=== PATIENT | male | born 1940 | race Caucasian/White ===

== ENCOUNTER 2020-08-18 11:01 | Inpatient (IN) | payer MEDICARE, BC, SELFPAY ==
[2020-08-18] VITALS (42 sets, daily range): BP systolic 151–199; BP diastolic 59–97; PULSE 67–111; RESP 17–28; TEMP 37.3–39.3; O2SAT 92–99; BMI 19.8
--- NOTE | ~2020-08-18 | XR_ITS ---
XR abdomen NG/feed tube insert INDICATION: Evaluate NG tube position. TECHNIQUE: Limited KUB perform for evaluating NG tube . COMPARISON: 08/21/2020 FINDINGS: NG tube tip in the stomach. Visualized bowel gas pattern is unremarkable. IMPRESSION: 1: NG tube tip in the stomach. Reviewed, dictated and finalized at location A. M AND GAS TURBINES ASSEMBLER
--- NOTE | ~2020-08-18 | XR_ITS ---
XR chest 1V portable DATE: 08/20/2020 05:36 INDICATION: Fever TECHNIQUE: Portable AP chest on August 20, 2020 at 0525 hours COMPARISON: August 18, 2020 AP chest FINDINGS: Heart size appears within normal limits considering magnification associated with AP projec tion. There are patchy infiltrates involving primarily the mid and lower lung zones, suggesting bilateral p neumonia. Pulmonary edema is an additional consideration. No pleural effusion or pneumothorax is evid ent. Diffuse osteopenia. Degenerative spurring of the thoracic spine. IMPRESSION: Interval mild patchy bilateral pulmonary infiltrates since August 18, 2020 Reviewed, dictated and finalized at location A. NKLING SYSTEM INSTALLER
--- NOTE | ~2020-08-18 | XR_ITS ---
EXAMINATION: XR chest PICC line DATE: 08/23/2020 12:02 INDICATION: Central line placement. TECHNIQUE: A single frontal view of the chest was obtained. COMPARISON: Chest single view 08/20/2020 FINDINGS: The left lung base is excluded. There are airspace opacities in the perihilar regions. No p leural effusion or pneumothorax. The heart size is normal. A right upper extremity peripherally inser central venous catheter (PICC) is seen with tip in the superior vena cava. The nasogastric tube t ip is beyond the inferior margin of the radiograph, but at least to the stomach. IMPRESSION: 1. PICC tip in superior vena cava. 2. Worsened airspace opacities in the perihilar regions, consistent with pulmonary edema versus pneum onia. Reviewed, dictated and finalized at location A. SCALER IMPRESSION: 1. PICC tip in superior vena cava. 2. Worsened airspace opacities in the perihilar regions, consistent with pulmon phillip edema versus pneumonia.
--- NOTE | ~2020-08-18 | MR_ITS ---
EXAMINATION: MR brain/brain stem wo/w con DATE: 08/20/2020 12:40 INDICATION: Altered mental status. Fever. TECHNIQUE: Magnetic resonance imaging (MRI) of the brain and brainstem was performed without and with 13 mL MultiHance intravenous contrast. Sequences included sagittal and axial T1-weighted FSE, axial diffusion-weighted FS EPI, axial T2*-weighted GRE, axial T2-weighted FLAIR Propeller, and axial T2-we ighted Propeller. Postcontrast sequences included axial and coronal T1-weighted FSE. Apparent diffusi on coefficient (ADC) maps were created. COMPARISON: Head CT 08/18/2020 FINDINGS: There is a small area of cystic encephalomalacia in the right frontal lobe centrum semioval e. There is chronic encephalomalacia in anteroinferior right frontal lobe. There are scattered areas of nonspecific increased T2-weighted signal intensity in the cerebral white matter. There is an old i nfarct in right cerebellum. There is no intracranial hemorrhage, acute infarction, or abnormal intrac ranial mass lesion. The ventricles are normal in size. There are likely changes of ocular lens replac ement surgeries. There is mild mucosal thickening in the paranasal sinuses. The mastoid air cells are normal. IMPRESSION: 1. 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 Chronic encephalomalacia in anteroinf erior right frontal lobe. 2. Mild nonspecific cerebral white matter disease, which likely represents chronic small vessel ische yamila disease. Reviewed, dictated and finalized at location A. ERTER SUPERVISOR IMPRESSION: 1. 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 Chronic encepha lomalacia in anteroinferior right frontal lobe. 2. Mild nonspecific cerebral white matter disease, which likely represents car wiper og small vessel ischemic disease.
--- NOTE | ~2020-08-18 | CT_ITS ---
EXAMINATION: CT brain wo con DATE: 08/18/2020 11:44 INDICATION: Altered mental status. TECHNIQUE: Computed tomography (CT) of the head was performed without intravenous contrast. The mA wa s adjusted according to patient size. Iterative reconstruction technique was employed. The dose-lengt h product was 605.33 mGy-cm. COMPARISON: None FINDINGS: There is a small old infarct in right cerebellum. There are scattered areas of low attenuat ion in the cerebral white matter. There is a small area of cystic encephalomalacia in the right front al lobe deep white matter. There is no intracranial hemorrhage, acute infarction, or abnormal intracr anial mass lesion. The ventricles are normal in size. There are likely changes of ocular lens replace ment surgeries. There is left frontal lateral scalp soft tissue swelling. The mastoid air cells are n ormal. There is mild mucosal thickening in the paranasal sinuses. IMPRESSION: 1. 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 2. Mild nonspecific cerebral white matter disease, which likely represents chronic small vessel ische yamila disease. Reviewed, dictated and finalized at location A. ERING DEPARTMENT SUPERVISOR IMPRESSION: 1. 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 2. Mild nonspecific cerebral white matter disease, which likely represents lunchroom worker og small vessel ischemic disease.
--- NOTE | ~2020-08-18 | XR_ITS ---
EXAMINATION: XR lumbar puncture diagnostic DATE: 08/20/2020 13:19 INDICATION: Altered mental status. Fever. TECHNIQUE: The skin overlying the L3-L4 level was prepped and draped in usual sterile fashion. Subcu taneous 1% lidocaine was used for local anesthesia. A 20 gauge spinal needle was advanced under fluo roscopic guidance. The needle was removed and the entry site was cleaned and dressed. There were no immediate complications. Fluoroscopy exposure time was 0.1 minutes. The total number of images was 1. FINDINGS: Real-time fluoroscopy demonstrates the needle at the L3-L4 level. Opening pressure was not measured. 7 mL of clear fluid was collected in 2 tubes. IMPRESSION: 1. Successful fluoro-guided lumbar puncture. The patient experienced seizure-like activity during the procedure. Reviewed, dictated and finalized at location A. ITION ASSOCIATE IMPRESSION: 1. Successful fluoro-guided lumbar puncture. The patient experienced seizure-li ke activity during the procedure.
--- NOTE | ~2020-08-18 | XR_ITS ---
XR abdomen NG/feed tube insert 08/21/2020 17:35 Indication: Evaluate NG tube position Procedure: Limited KUB Comparison: No prior studies for comparison. Findings: NG tube tip in the right mainstem bronchus. Bowel gas pattern nonobstructive. Heart size no rmal. Impression: 1: NG tube tip in the right mainstem bronchus. Dr. Gee discussed with the patient's nurse, Megan, in IMU at 08/21/2020 17:39 MOTOR AND CHASSIS INSPECTOR. Reviewed, dictated and finalized at location A. R AND CHASSIS INSPECTOR Impression: 1: NG tube tip in the right mainstem bronchus. Dr. Gee discussed with the patient's nurse, Megan, in IMU at 08/21/2020 17:39 MOTOR AND CHASSIS INSPECTOR.
--- NOTE | ~2020-08-18 | XR_ITS ---
EXAMINATION: XR chest 1V EXAM DATE: 08/18/2020 11:49 INDICATION: Altered mental status. TECHNIQUE: Portable AP frontal chest x-ray was obtained. There is no prior study for comparison. FINDINGS: The lungs are clear. There are no pleural effusions. Cardiomediastinal silhouette is norm al. There is no pneumothorax suspected. The bones and soft tissues are unremarkable. IMPRESSION: No acute cardiopulmonary findings. Reviewed, dictated and finalized at location B. STIC TEACHER
--- NOTE | 2020-08-18 11:08 | ECG_ITS ---
Measurements Intervals [place] Rate: 91 P: 75 MA: 123 QRS: -17 QRSD: 94 T: 52 QT: 358 QTc: 441 Interpretive Statements SINUS RHYTHM ATRIAL PREMATURE COMPLEXES POSSIBLE LEFT ATRIAL ENLARGEMENT CANNOT RULE OUT SEPTAL INFARCT, AGE INDETERMINATE BORDERLINE T WAVE ABNORMALITY- INF/HIGH LAT LEADS BASELINE ARTIFACT- I, II, III, AVR, AVL, AVF, V1-V6 ABNORMAL ECG Electronically Signed On 08-18-2020 13:11:24 JOURNEYMAN PIPEFITTER by Boyd Kennedy D.O.
--- NOTE | 2020-08-18 11:09 | ED.GENADULT ---
HPI - General Adult General Chief complaint: Altered Mental Status Stated complaint: unresponsive Time Seen by Provider: 08/18/20 11:03 Source: EMS and RN notes reviewed Mode of arrival: EMS Limitations: altered mental status History of Present Illness HPI narrative: An 80-year-old male was brought in by EMS after being found down in his home. Apparently his had called on stating that he had fallen. She alleges that the patient had been on the ground for 1 to a few hours. EMS noted that the patient had been covered in urine and feces, the home was in hoarding conditions. Patient is ANO x0. It is unclear if this is baseline. Patient is unable to provide any meaningful history. Related Data Home Medications Medication Instructions Recorded Confirmed Unable to Obtain Home Medications 08/18/20 08/18/20 Allergies Allergy/AdvReac Type Severity Reaction Status Date / Time Unable to Assess Allergy Verified 08/18/20 11:11 Review of Systems Review of Systems: ROS unobtainable: Yes unobtainable due to medical condition and unobtainable due to mental status PMFSH Social History Social History Gender identity (if verbalized by the patient): Male Exam Narrative: Exam Narrative: GENERAL: Thin, frail, disheveled elderly man. Warm to the touch. HEAD: Normocephalic, atraumatic. EYES: PERRLA and EOMI. ENT: Nares clear, no rhinorrhea or epistaxis. Mucous membranes dry. NECK: Supple. No adenopathy or masses. No carotid bruits or JVD CHEST: Clear to auscultation. No respiratory distress. Diminished breath sounds diffusely, yet tachypneic HEART: Tachycardic. No murmur heard. Normal peripheral pulses. ABDOMEN: Soft, nontender, nondistended, normal active bowel sounds. EXTREMITIES: Normal range of motion. No edema. SKIN: Warm, dry, no rash. No decubitus ulcer seen. Dried fecal matter seen on the feet. NEURO: Alert and oriented x0. PSYCH: A+Ox0. Course Reevaluation(s) Reevaluation #1: Patient still resting comfortably. He is asleep however easily aroused. Patient's is present. She notes that she found him on the floor earlier this morning. She does not have any further contributory history at this time. We will plan for admission. Time: 14:59 Consultations Consultation #1: Discussed with OLEG Winkler for the hospitalist service. All pertinent details of the patient's presentation, evaluation and treatments thus far were discussed. She agrees to accept the patient on behalf of the hospitalist service for further treatment and management. Time: 15:19 Vital Signs Vital signs: Vital Signs Temperature 38.6 C H 08/18/20 10:59 Pulse Rate 103 H 08/18/20 10:59 Respiratory Rate 24 H 08/18/20 10:59 Blood Pressure 173/97 H 08/18/20 10:59 Pulse Oximetry 98 08/18/20 10:59 Temperature 38.6 C H 08/18/20 10:59 Pulse Rate 95 08/18/20 13:16 Respiratory Rate 23 H 08/18/20 13:16 Blood Pressure 189/67 H 08/18/20 13:16 Pulse Oximetry 95 08/18/20 13:16 Medical Decision Making MDM Narrative Medical decision making narrative: In brief this is a an 80-year-old male who was found down at home. Amount of time he was down is unclear. Patient's labs do show that he is likely an early DKA with an elevated blood sugar and beta hydroxybutyrate. Patient's anion gap is closed and CO2 is found to be normal. Because of this I do not feel the patient warrants being on an insulin drip at this time, rather IV fluids and IV insulin. Further review of the patient's laboratory data does not demonstrate any signs of rhabdomyolysis. He did present febrile and as such had sepsis work-up initiated. No certain source of infection has yet been identified. Patient will be swabbed for the COVID-19 virus. This is pending at this time. Patient was given empiric antibiotics, cefepime and vancomycin. Medical Records Medical records reviewed: Yes I reviewed the external pa
--- NOTE | 2020-08-18 11:25 | PC.NURSE ---
Bedside report to JESSICA Patel, to continue care.
--- NOTE | 2020-08-18 11:25 | PC.NURSE ---
patient here after found on the floor at his home. reported to only be on floor for 1 hour per EMS and . patient appears to have been on floor for longer period of time after assessment of his condition and soiled. nonresponsive to verbal stimuli at this time. FSBS on our glucomenter H . 2nd peripheral line inserted. labs drawn. waiting for refresh technician to get 2nd set of blood cultures and lactic. patient does respond to painful stimuli. patient to CT now on monitor and then for CXR.
[2020-08-18] MEDS: LACTATED RINGERS 1,000 ML 999 ML IV CONT (11:45)
--- NOTE | 2020-08-18 12:02 | PC.NURSE ---
patient back from CT. no change in condition. water technician to get 2nd blood culture set and lactic. will start IV antibiotics. attempted to call patient's home number but line is busy.
--- NOTE | 2020-08-18 12:15 | PC.NURSE ---
IV antibiotics started. unable to verify meds or allergies yet. home number is busy still. no other numbers on chart.
[2020-08-18 12:37] LABS: Hematocrit 36.4 % (42.0-52.0); Hemoglobin 12.4 g/dL (14.0-18.0); Mean Corpuscular HGB Conc 34.1 g/dl (32-36); Mean Corpuscular Hemoglobin 33.9 pg (26-34); Mean Corpuscular Volume 99.5 fl (80-100); Mean Platelet Volume 9.8 fl (7.4-10.4); Platelet Count Result 297 k/mm3 (150-375); Red Blood Count 3.66 M/mm3 (4.6-6.20); Red Cell Distribution Width 13.8 % (11.5-14.5); White Blood Count 14.3 K/mm3 (4.5-10.0)
[2020-08-18 12:41] LABS: Add Urine Microscopic? YES; Appearance Urine Clear (Clear); Bilirubin Urine Negative (Negative); Blood Urine 2+ (Negative); Color Urine Straw (Yellow); Glucose Urine UA 3+ mg/dL (Negative); Ketones Urine 2+ mg/dL (Negative); Leukocyte Esterase Ur Negative LEU/UL (Negative); Nitrate Urine Negative (Negative); Protein Urine 2+ mg/dL (Negative); Specific Grav Ur 1.025 (1.001-1.035); Squamous Epithelial Cell Urine Rare /hpf (Few); Urobilinogen Urine Negative mg/dL (<2.0); WBC Urine 0-3 /hpf
[2020-08-18 12:47] LABS: Lymphocytes Absolute Manual 0.28 K/mm3 (1.1-4.5); Monocytes Absolute Manual 0.14 K/mm3 (0.1-0.90); Monocytes Percent Manual 1 % (3-9); Neutrophils Percent Manual 97 % (46-73); Ovalocytes 1+ (NORMAL); Platelet Estimate Adequate (Adequate); Tear Drop Cells 1+ (NORMAL); Total Cells Counted 100
[2020-08-18 12:48] LABS: Lactic Acid Reflex 2.6 mmol/L (0.7-2.1)
[2020-08-18 12:53] LABS: Alanine Aminotransferase 22 U/L (4-50); Albumin Level 4.1 g/dL (3.5-5.1); Alkaline Phosphatase 129 U/L (38-126); Anion Gap 15 mmol/L (8-16); Aspartate Amino Transferase 24 U/L (17-59); Bilirubin,Total 0.7 mg/dL (0.2-1.3); Blood Urea Nitrogen 26 mg/dL (9-20); CRP < 0.5 mg/dL (<1.0); Calcium 9.2 mg/dL (8.4-10.2); Carbon Dioxide 21 mmol/L (22-30); Chloride 100 mmol/L (98-107); Creatine Kinase 176 U/L (55-170); Estimated CRCL calculation 63 ml/min; Estimated Glomerular Filt Rate > 60; Glucose 594 mg/dL (75-110); Sodium 136 mmol/L (137-145)
[2020-08-18 13:00] LABS: Troponin I < 0.012 ng/mL (0.000-0.034)
[2020-08-18 13:02] LABS: INR 0.9
[2020-08-18 13:04] LABS: Partial Thromboplastin Time 25.1 SECONDS (22.3-36.8)
--- NOTE | 2020-08-18 13:30 | PC.NURSE ---
patient's now at bedside. seems to be a poor historian with 's medical history. states she doesnt think he is allergic to any medications or foods. states that he is only on 2 medications at home, Victoza and another diabetic med. states he ran out a few days ago she thinks. she did call the physicians office but has not heard back for refill. states she thinks the patient must have gotten up early this am, maybe around 6am, ambulated to their kitchen and fell. states she found the patient there on the floor around 0800. asked why the patient was dirty and soiled. she didn't really know. EMS reported home was very dirty and a hoarder-like situation. EMS stated they are calling the [facility] of [facility]ging due to the condition of the patient and home. updated on patient's condition and test result so far.
[2020-08-18 14:09] LABS: Alveolar/Arterial O2 Gradient 41.1 mmHg; Base Excess ABG -7.9 mEq/l (+/-2.0); Fractional Inspired Oxygen 21 %; HCO3 ABG 14.9 mEq/l (22.0-26.0); Oxygen Content ABG 17.2 %vol (16.0-22.0); Oxygen Saturation ABG 96.1 % (95.0-100.0); PCO2 ABG 24.2 mmHg (35.0-45.0); PO2 ABG 79.7 mmHg (80.0-100.0); pH ABG 7.408 (7.350-7.450)
[2020-08-18 14:21] LABS: Device ROOM AIR; Modified Allen's Test Pass; Site Drawn LEFT RADIAL
[2020-08-18] MEDS: LACTATED RINGERS 1,000 ML 125 ML IV CONT (15:30)
[2020-08-18 15:31] LABS: Reflex Lactic Acid Yes or No Add Lactic
[2020-08-18] MEDS: INSULIN HUMAN REGULAR (*BKC) 100 UNITS/ML 7 UNITS IV PUSH (15:31)
--- NOTE | 2020-08-18 15:31 | PC.NURSE ---
no change in patient's neurological status. does appear to barely open his right eye when his name is called or to painful stimuli. has left and went home. did not check in with staff. on alarm security or surveillance monitor. IV insulin given. will transfer to IMU when bed assigned.
[2020-08-18 15:34] LABS: Glucose Point of Care > 500 (65-105)
[2020-08-18 16:10] LABS: Lactic Acid 1.5 mmol/L (0.7-2.1)
--- NOTE | 2020-08-18 16:59 | PC.NURSE ---
FSBS now 423. covid swab done report given to Humaira LOPEZ in IMU. will transfer patient to 213.
--- NOTE | 2020-08-18 17:08 | PC.NURSE ---
This patient, Richi Bautista, was admitted to IMU Room 213-01. Patient/family oriented to hospital policies and general routines including ID bracelet, bed and alarms, visiting hours, pain management, procedures, bathroom and other care routines, personal items, smoking policy, room service/diet, and visiting hours. Information on how to activate the Rapid Response Team has been discussed. Patient/Family are encouraged to report perceived risks to care and to ask questions if they do not understand what they are told or what they should do.
[2020-08-18 17:09] LABS: Glucose Point of Care 435 (65-105)
[2020-08-18] MEDS: INSULIN ASPART (*BKC) 100 UNITS/ML 10 UNITS SUB-Q (17:57)
--- NOTE | 2020-08-18 18:14 | PM.IMHP ---
H&P: HPI History of Present Illness Date/Time: 08/18/20 18:14 Chief Complaint: Fall and unresponsiveness Narrative: Richi Bautista is a 80 year old male was brought into ER via EMS from home. The patient lives with his who also has difficulty conveying history. The called EMS and stated that the patient had fallen. She was not quite sure how long the patient had been there. The patient had been covered in urine and feces. The home was noted to be unlivable as noted by EMS. The home was cluttered and they appear to be hoarding items. The patient is A&O times 0. Patient's temperature is 30.6?. Blood pressure 173/97. The patient's anion gas was closed and his CO2 was normal. Patient was given IV insulin and IV fluids. He was swabbed for covid 19. His labs did not demonstrate rhabdomyolysis. Dupree catheter was placed and he is draining clear yellow urine. The patient has multiple scabs all over his legs and an abrasion to the left side of his face. CT of the brain was performed and it was read as no acute cardiopulmonary findings. Head CT was read as old infarcts in the right cerebellum and right frontal lobe. Mild nonspecific cerebral white matter disease which likely represents chronic small vessel ischemic disease. Patient was started on IV fluids, cefepime, vancomycin and given insulin. White count was noted to be 14.3 and was empirically started on IV antibiotics for fever. Could possibly be COVID-19. Patient was admitted to observation on the date of service of 08/18/2020. Review of Systems Review of Systems: ROS unobtainable: Yes unobtainable due to mental status [facility] Surgical History Surgical History (Updated 08/18/20 @ 18:23 by Cathi Shetty NP) Surgical history unknown Family History Family History (Updated 08/18/20 @ 17:38 by Humaira Anglin RN) Other Unknown family medical history Social History Social History (Updated 08/18/20 @ 18:25 by Cathi Shetty NP) Social History: The patient is and lives with his . Unknown if patient ever smoke or drink. Patient is unable to answer questions and his is a poor historian Smoking status: Unknown if ever smoked Gender identity (if verbalized by the patient): Male Meds Home Medications and Allergies Home Medications Medication Instructions Recorded Confirmed Type Unable to Obtain Home Medications 08/18/20 08/18/20 History Allergies Allergy/AdvReac Type Severity Reaction Status Date / Time Unable to Assess Allergy Verified 08/18/20 11:11 Vital Signs Vital Signs - 24 hr 08/18/20 10:59 08/18/20 11:15 08/18/20 11:21 Temperature 38.6 C H Pulse Rate 103 H 92 Respiratory Rate 24 H 24 H 21 H Blood Pressure 173/97 H Pulse Oximetry 98 08/18/20 11:30 08/18/20 11:32 08/18/20 11:51 Temperature Pulse Rate 94 96 93 Respiratory Rate 17 23 H 26 H Blood Pressure 199/73 H Pulse Oximetry 08/18/20 12:00 08/18/20 12:01 08/18/20 12:39 Temperature Pulse Rate 90 90 86 Respiratory Rate 22 H 21 H 23 H Blood Pressure 175/84 H Pulse Oximetry 99 99 98 08/18/20 13:02 08/18/20 13:15 08/18/20 13:16 Temperature Pulse Rate 92 96 95 Respiratory Rate 20 22 H 23 H Blood Pressure 189/67 H Pulse Oximetry 97 94 95 08/18/20 13:19 08/18/20 13:45 08/18/20 13:46 Temperature Pulse Rate 97 99 98 Respiratory Rate 24 H 24 H 23 H Blood Pressure 172/74 H Pulse Oximetry 95 96 97 08/18/20 14:00 08/18/20 14:01 08/18/20 14:15 Temperature Pulse Rate 98 97 100 Respiratory Rate 24 H 24 H 26 H Blood Pressure 187/73 H Pulse Oximetry 95 95 96 08/18/20 14:16 08/18/20 14:34 08/18/20 14:45 Temperature Pulse Rate 101 H 95 97 Respiratory Rate 25 H 23 H 24 H Blood Pressure 190/75 H Pulse Oximetry 95 96 96 08/18/20 14:46 08/18/20 15:04 08/18/20 15:15 Temperature Pulse Rate 99 101 H 101 H Respiratory Rate 24 H 25 H 24 H Blood Pressure 190/76 H Pulse Oxim
[2020-08-18 18:55] LABS: Immature Reticulocyte Fraction 9.2 % (3.0-15.9); Reticulocyte Percent 2.57 % (0.7-4.3)
[2020-08-18 19:04] LABS: Creatine Kinase 420 U/L (55-170)
[2020-08-18 19:09] LABS: Hemoglobin A1C 13.9 % (<5.7)
[2020-08-18 19:16] LABS: Troponin I 0.041 ng/mL (0.000-0.034)
[2020-08-18] MEDS: SODIUM CHLORIDE 0.9% IV 1,000 ML 100 ML IV CONT (20:33)
[2020-08-18 21:40] LABS: Bilirubin,Total 0.6 mg/dL (0.2-1.3)
[2020-08-18 21:41] LABS: Lactate Dehydrogenase 775 U/L (313-618)
[2020-08-18 21:49] LABS: Transferrin 232 mg/dL (206-381)
[2020-08-18 22:04] LABS: Troponin I 0.066 ng/mL (0.000-0.034)
[2020-08-18 22:29] LABS: Iron 20 ug/dL (49-181)
[2020-08-18 22:39] LABS: Percent Iron Saturation 7 % (20-50)
[2020-08-18 22:47] LABS: Folic Acid 16.2 ng/mL (2.76->20)
[2020-08-18 23:44] LABS: Glucose Point of Care 313 (65-105)
[2020-08-19] VITALS (21 sets, daily range): BP systolic 143–169; BP diastolic 64–84; PULSE 67–115; RESP 20–28; TEMP 36.4–39.1; O2SAT 94–100
[2020-08-19] MEDS: INSULIN ASPART (*BKC) 100 UNITS/ML SUB-Q ×5 (00:22→23:45)
[2020-08-19 03:32] LABS: IFOB Positive Control Positive; Immunochemical Fecal Occult Bl Positive (N)
[2020-08-19 05:54] LABS: Alanine Aminotransferase 19 U/L (4-50); Albumin Level 3.5 g/dL (3.5-5.1); Alkaline Phosphatase 100 U/L (38-126); Anion Gap 10 mmol/L (8-16); Aspartate Amino Transferase 37 U/L (17-59); Bilirubin,Total 0.8 mg/dL (0.2-1.3); Blood Urea Nitrogen 24 mg/dL (9-20); Carbon Dioxide 21 mmol/L (22-30); Chloride 107 mmol/L (98-107); Estimated CRCL calculation 68 ml/min; Estimated Glomerular Filt Rate > 60; Glucose 228 mg/dL (75-110); Lactate Dehydrogenase 967 U/L (313-618); Magnesium 1.8 mg/dL (1.6-2.3); Sodium 138 mmol/L (137-145)
[2020-08-19 06:09] LABS: Basophils Percent Auto 0.2 % (0.2-1.2); Hemoglobin 11.4 g/dL (14.0-18.0); Immature Granulocyte Absolute 0.06 K/mm3 (0.00-0.031); Immature Granulocyte Percent A 0.5 % (0-0.5); Lymphocytes Absolute Auto 0.82 K/mm3 (0.9-3.2); Lymphocytes Percent Auto 6.2 % (18.3-44.2); Mean Corpuscular HGB Conc 32.6 g/dl (32-36); Mean Corpuscular Hemoglobin 32.7 pg (26-34); Mean Corpuscular Volume 100.3 fl (80-100); Mean Platelet Volume 9.9 fl (7.4-10.4); Monocytes Absolute Auto 0.8 K/mm3 (0.1-0.6); Monocytes Percent Auto 5.8 % (2.6-8.5); Neutrophils Absolute Auto 11.6 K/mm3 (1.3-6.7); Neutrophils Percent Auto 87.3 % (45.5-73.1); Platelet Count Result 252 k/mm3 (150-375); Red Blood Count 3.49 M/mm3 (4.6-6.20); White Blood Count 13.3 K/mm3 (4.5-10.0)
[2020-08-19 06:27] LABS: Glucose Point of Care 351 (65-105)
[2020-08-19 07:55] LABS: Thyroid Stimulating Hormone Reflex 0.802 uIU/mL (0.465-4.68)
--- NOTE | 2020-08-19 08:17 | PCOTNOTE ---
Attempted OT evaluation, pt is unarousable at this time, not appropriate for skilled OT at this time, RN notified.
[2020-08-19] MEDS: SODIUM CHLORIDE 0.9% IV 1,000 ML 100 ML IV CONT ×2 (09:29→23:35)
--- NOTE | 2020-08-19 09:29 | PCPTNOTE ---
Attempted PT eval. Pt opens eyes but does not follow any commands. Pt unable to participate w/ therapy at this time. Will follow.
[2020-08-19 12:07] LABS: Glucose Point of Care 252 (65-105)
--- NOTE | 2020-08-19 13:15 | PCOTNOTE ---
Attempted OT evaluation, spoke with RN, patient remains unresponsive and is not following any commands at this time. RN recommended to wait until tomorrow to attempt evaluation. Will follow.
--- NOTE | 2020-08-19 13:19 | PCPTNOTE ---
Attempted PT eval. Spoke w/ Sajan RN, pt unresponsive and not following commands at this time. RN recommends waiting until tomorrow to attempt eval. Will follow.
--- NOTE | 2020-08-19 14:20 | PC.NURSE ---
Discussed plan of care with patient's spouse. Spouse states patient verbal and independent at home, last week was incontinent alot. Reviewed visiting policy with spouse.
--- NOTE | 2020-08-19 15:37 | PM.IMPN ---
Progress Note: A&P Assessment and Plan (1) Sepsis due to undetermined organism: Code(s): A41.9 - Sepsis, unspecified organism Status: Acute Assessment and Plan: Patient with fevers, AMS, lactic acidosis and tachycardia. BCx obtained. CXR clear. CT brain showing nothing acute. WBC 14K. The patient was started on cefepime and vancomycin. He was started on IV fluids. Adjust abx. Follow up on cultures. Will need MRI brain when able. (2) Suspected 2019 novel coronavirus infection: Code(s): Z20.822 - Contact with and (suspected) exposure to COVID-19 Status: Acute Assessment and Plan: Fevers but with clear CXR. COVID swabbed. Patient is on droplet isolation. Follow up with results. Check influenza (3) Diabetes mellitus with hyperglycemia: Qualifiers: Diabetes mellitus moth exterminator insulin use: with moth exterminator use Diabetes mellitus type: type 2 Qualified Code(s): E11.65 - Type 2 diabetes mellitus with hyperglycemia; Z79.4 - termite helper (current) use of insulin Code(s): E11.65 - Type 2 diabetes mellitus with hyperglycemia Status: Acute Assessment and Plan: A1c 13.9. Glucose elevated to 594 on admission. Glucose better but still elevated. Add low dose lantus (4) Acute dehydration: Code(s): E86.0 - Dehydration Status: Acute Assessment and Plan: Continue with IV fluids continue to monitor BMP. (5) Acute metabolic encephalopathy: Code(s): G93.41 - Metabolic encephalopathy Status: Acute Assessment and Plan: CT brain showing old right sided CVAs. Mental satus changes could be from new CVA not seen by CT brain. Could be related to infectious process. COVID testing in process. CXR clear. BCx pending. UA not consistent with infection. He is alert and feel meningitis less likely but can not exclude. Hyperosmolar? The patient had fallen on the ground and been on the ground for unknown amount of time. Continue IV fluids. Continue isolation for COVID. Continue IV abx and adjust for menigitis coverage. (6) Anemia: Code(s): D64.9 - Anemia, unspecified Status: Acute Assessment and Plan: B12/folate okay. Iron studies consistent with iron deficiency anemia. Possibly from mild GI blood loss. Hgb 12.4 on admission but dropped to 11.4. Follow for now (7) Elevated troponin: Code(s): R77.8 - Other specified abnormalities of plasma proteins Status: Acute Assessment and Plan: Trop normal on admission but climbed to 0.066. EKG reviewed showing no acute findings. Repeat Trop. Follow. (8) Guaiac positive stools: Code(s): R19.5 - Other fecal abnormalities Status: Acute Assessment and Plan: Could be related to upper or lower. Will start Protonix and follow HH closely. Transfuse as needed. may need GI evaluation. (9) HTN (hypertension), benign: Code(s): I10 - Essential (primary) hypertension Status: Acute Assessment and Plan: Blood pressure elevated since admission. He is off his antihypertensive medications contributing to this. He is mildly tachycardic probably related to being off of propranolol. Could have had acute CVA so will allow for permissive HTN. (10) DVT prophylaxis: Code(s): Z29.9 - Encounter for prophylactic measures, unspecified Status: Acute Assessment and Plan: SCDs Subjective Date/time seen: 08/19/20 15:37 Interval history: Date of service 08/19 80yo male with hx of CVA who was found down at home here for AMS. Patient is awake but nonverbal and unable to provide hx. Phone line was busy when calling family Review of Systems Review of Systems: ROS unobtainable: Yes unobtainable due to mental status Exam Narrative: Exam Narrative: Tm 102.7 97.5 169/65 115 26 99% ra Gen - thin elderly male with head turned to the right and nonverbal Neck - nuchal rigidity Ch
[2020-08-19 17:37] LABS: SARS-CoV-2 RNA PCR Negative
[2020-08-19 17:53] LABS: Glucose Point of Care 357 (65-105)
[2020-08-19 17:57] LABS: Troponin I 0.075 ng/mL (0.000-0.034)
[2020-08-19] MEDS: PANTOPRAZOLE SODIUM IV 40 MG VIAL IV PUSH (17:58)
[2020-08-19] MEDS: AMPICILLIN 2 GM/NS 100 ML 2 GM/100 ML BAG IVPB ×2 (17:58→21:01)
[2020-08-19] MEDS: METOPROLOL TARTRATE INJ 5 MG/5 ML VIAL 2.5 MG IV PUSH ×2 (17:59→23:35)
[2020-08-19] MEDS: INSULIN GLARGINE (*BKC) 100 UNITS/ML 10 UNITS SUB-Q (21:07)
[2020-08-19 21:12] LABS: Glucose Point of Care 194 (65-105)
[2020-08-19 23:34] LABS: Glucose Point of Care 203 (65-105)
[2020-08-20] VITALS (25 sets, daily range): BP systolic 141–197; BP diastolic 60–98; PULSE 61–97; RESP 12–22; TEMP 36–36.8; O2SAT 93–100; BMI 11.0
[2020-08-20] MEDS: AMPICILLIN 2 GM/NS 100 ML 2 GM/100 ML BAG IVPB ×6 (02:15→22:02)
[2020-08-20 04:59] LABS: Basophils Percent Auto 0.2 % (0.2-1.2); Hematocrit 34.5 % (42.0-52.0); Hemoglobin 11.6 g/dL (14.0-18.0); Immature Granulocyte Absolute 0.05 K/mm3 (0.00-0.031); Immature Granulocyte Percent A 0.4 % (0-0.5); Lymphocytes Absolute Auto 0.78 K/mm3 (0.9-3.2); Lymphocytes Percent Auto 6.6 % (18.3-44.2); Mean Corpuscular HGB Conc 33.6 g/dl (32-36); Mean Corpuscular Hemoglobin 33.6 pg (26-34); Mean Platelet Volume 9.7 fl (7.4-10.4); Monocytes Absolute Auto 0.7 K/mm3 (0.1-0.6); Monocytes Percent Auto 5.6 % (2.6-8.5); Neutrophils Absolute Auto 10.4 K/mm3 (1.3-6.7); Neutrophils Percent Auto 87.2 % (45.5-73.1); Platelet Count Result 196 k/mm3 (150-375); Red Blood Count 3.45 M/mm3 (4.6-6.20); Red Cell Distribution Width 13.7 % (11.5-14.5); White Blood Count 11.9 K/mm3 (4.5-10.0)
[2020-08-20 05:08] LABS: Alanine Aminotransferase 22 U/L (4-50); Alkaline Phosphatase 80 U/L (38-126); Anion Gap 6 mmol/L (8-16); Aspartate Amino Transferase 38 U/L (17-59); Bilirubin,Total 0.8 mg/dL (0.2-1.3); Blood Urea Nitrogen 26 mg/dL (9-20); CRP 1.2 mg/dL (<1.0); Calcium 8.3 mg/dL (8.4-10.2); Carbon Dioxide 25 mmol/L (22-30); Chloride 108 mmol/L (98-107); Creatine Kinase 626 U/L (55-170); Estimated CRCL calculation 68 ml/min; Estimated Glomerular Filt Rate > 60; Glucose 211 mg/dL (75-110); Magnesium 1.8 mg/dL (1.6-2.3); Phosphorus 2.8 mg/dL (2.5-4.5); Potassium 3.3 mmol/L (3.4-5.0); Sodium 139 mmol/L (137-145)
[2020-08-20 05:34] LABS: Troponin I 0.044 ng/mL (0.000-0.034)
[2020-08-20] MEDS: METOPROLOL TARTRATE INJ 5 MG/5 ML VIAL 2.5 MG IV PUSH ×3 (05:41→17:19)
[2020-08-20 05:42] LABS: Glucose Point of Care 277 (65-105)
[2020-08-20] MEDS: INSULIN ASPART (*BKC) 100 UNITS/ML SUB-Q ×3 (05:48→23:28)
[2020-08-20] MEDS: PANTOPRAZOLE SODIUM IV 40 MG VIAL IV PUSH (09:14)
[2020-08-20] MEDS: KCL 20 MEQ/D5/0.9% SOD CHL 1,000 ML 70 ML IV CONT (10:01)
[2020-08-20 11:59] LABS: Glucose Point of Care 195 (65-105)
--- NOTE | 2020-08-20 12:14 | WPDNEURCNPN ---
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 Code(s): E11.65 - Type 2 diabetes mellitus with hyperglycemia Status: Acute (4) Seizure disorder: Code(s): G40.909 - Epilepsy, unspecified, not intractable, without status epilepticus Status: Acute (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) Status: Acute Additional Plan patient was gone for the spinal tap reportedly had a seizure there was sent back to the floor at this stage he is unresponsive to verbal commands his eyes are deviated to the left side most likely postictal left hemiparetic with right hemispheric focus which is already documented by the abnormal MRI will need to continue on the anticonvulsant Consult date: 08/20/20 Time Seen: 13:30 HPI: Richi Bautista is a 80 year old male Brought to the ER via EMS from home with history of fall and becoming unresponsive for unclear duration of time and being covered with urine and feces is and also description of home being under livable initial blood pressure 173/97 received IV fluids and with insulin swab for the COVID-19 lab did not document rhabdomyolysis, Peyton was clear yellow with Dupree's catheter in found to have multiple abrasions and scabs, the of the brain negative except the old infarct in right cerebellum and right frontal lobe with nonspecific white matter disease, patient started on cefepime vancomycin insulin with IV fluids . CBC revealed mild leukocytosis hemoglobin 11.6 platelet count 196, serum potassium 3.3 BUN 26, blood sugar of 252 and troponin 0.075 and CRP of 1.2 Review of Systems Review of Systems: All systems reviewed & are unremarkable except as noted in HPI and below PMFSH Surgical History Surgical History Surgical history unknown Family History Family History Other Unknown family medical history Social History Social History Social History: The patient is and lives with his . Unknown if patient ever smoke or drink. Patient is unable to answer questions and his is a poor historian Smoking status: Unknown if ever smoked Alcohol intake: unknown Substance use: unknown Gender identity (if verbalized by the patient): Male Spiritual care concerns: No Meds Home Medications and Allergies Home Medications Medication Instructions Recorded Confirmed Type amlodipine 2.5 mg PO DAILY 08/18/20 08/18/20 History dutasteride-tamsulosin 1 cap PO DAILY 08/18/20 08/18/20 History insulin glargine U-300 conc 20 unit SUBCUT HS 08/18/20 08/18/20 History [Toujeo SoloStar U-300 Insulin] liraglutide [Victoza 3-Tramaine] 1.8 mg SUBCUT DAILY 08/18/20 08/18/20 History propranolol 60 mg PO TID 08/18/20 08/18/20 History rosuvastatin 5 mg PO DAILY 08/18/20 08/18/20 History topiramate 25 mg PO TID 08/18/20 08/18/20 History valsartan 320 mg PO DAILY 08/18/20 08/18/20 History Allergies Allergy/AdvReac Type Severity Reaction Status Date / Time No Known Allergies Allergy Verified 08/20/20 06:46 Vital Signs Vital Signs - 24 hr 08/19/20 12:33 08/19/20 14:00 08/19/20 16:00 Temperature 36.4 C L 37.5 C Pulse Rate 84 115 H 96 Respiratory Rate 26 H 20 Blood Pressure 169/65 H 163/84 H Pulse Oximetry 99 95 08/19/20 17:59 08/19/20 18:00 08/19/20 20:00 Temperature 3
--- NOTE | 2020-08-20 13:35 | PM.IMPN ---
Progress Note: A&P Assessment and Plan (1) Sepsis due to undetermined organism: Code(s): A41.9 - Sepsis, unspecified organism Status: Acute Assessment and Plan: Patient with fevers, AMS, lactic acidosis and tachycardia. BCx postive growing Gram positive cocci in clusters. CXR clear. CT brain showing nothing acute. WBC 14K. The patient was started on cefepime and vancomycin but changed to meningitic abx. He was started on IV fluids. MRI brain showing no acute findings. LP performed but only 7cc obtained due to seizure. CSF showing 826 WBC with 98% neutrophils, no MO on gram stain, and glucose and protein high. Suspect bacterial meningitis. Continue current abx. Add acyclovir. Appreciate neurology input. (2) Acute metabolic encephalopathy: Code(s): G93.41 - Metabolic encephalopathy Status: Acute Assessment and Plan: CT brain showing old right sided CVAs. [place] AMS related to infectious process from meningitis. COVID negative. CXR clear. BCx positive as above. UA not consistent with infection. The patient had fallen on the ground and been down for unknown amount of time. Continue IV fluids. Continue IV abx for meningitis coverage. 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 Glucose elevated to 594 on admission. Glucose reviewd on 08/20 and better at times but still elevated. Continue Lantus and advance (4) Anemia: Code(s): D64.9 - Anemia, unspecified Status: Acute Assessment and Plan: B12/folate okay. Iron studies consistent with iron deficiency anemia. Possibly from mild GI blood loss. Hgb 12.4 on admission but dropped to 11 range and stable. Follow for now (5) Elevated troponin: Code(s): R77.8 - Other specified abnormalities of plasma proteins Status: Acute Assessment and Plan: Trop normal on admission but climbed to 0.075 before trending down. EKG reviewed showing no acute findings. [place] Type II MD related to above. (6) Acute dehydration: Code(s): E86.0 - Dehydration Status: Acute Assessment and Plan: Continue with IV fluids continue to monitor BMP. (7) Guaiac positive stools: Code(s): R19.5 - Other fecal abnormalities Status: Acute Assessment and Plan: Could be related to upper or lower GI tract. Hgb stable in the 11 range. Continue Protonix and follow HH closely. Transfuse as needed. may need GI evaluation. (8) HTN (hypertension), benign: Code(s): I10 - Essential (primary) hypertension Status: Acute Assessment and Plan: Blood pressure elevated since admission. He is off his antihypertensive medications contributing to this. He is mildly tachycardic probably related to being off of propranolol. Could have had acute CVA so will allow for permissive HTN. Lopressor IV started /. Advacne dose since no new CVA. (9) DVT prophylaxis: Code(s): Z29.9 - Encounter for prophylactic measures, unspecified Status: Acute Assessment and Plan: SCDs (10) Seizure disorder: Code(s): G40.909 - Epilepsy, unspecified, not intractable, without status epilepticus Status: Acute Assessment and Plan: Patient had witnessed seizure in radiology. COuld have been having seizures that were unwitnessed or unrecognized. Keppra started. Seizure precautions. (11) Suspected 2019 novel coronavirus infection: Code(s): Z20.822 - Contact with and (suspected) exposure to COVID-19 Status: Acute Assessment and Plan: COVID negative. Patient taken off of js
[2020-08-20 13:39] LABS: Glucose CSF 97 mg/dL (40-70); Total Protein CSF 186 mg/dL (12-60)
[2020-08-20 13:44] LABS: Appearance CSF Clear (Clear); CSF source CSF; Color CSF Colorless (Colorless); Lymphocytes CSF 2 % (40-80); Neutrophils CSF 98 % (0-6); Nucleated Cell CSF 826 /uL (0-5); Red Blood Cell CSF 86 (0-2)
[2020-08-20] MEDS: ACYCLOVIR SODIUM IVPB 700 MG in DEXTROSE 5% IN WATER 250 ML 266 MG IVPB ×2 (15:31→23:09)
[2020-08-20] MEDS: levETIRAcetam IV 750 MG in DEXTROSE 5% 100 ML 430 MG IVPB ×2 (15:32→21:26)
[2020-08-20] MEDS: levETIRAcetam 500MG/NACL 100ML 500 MG/100 ML BAG 400 MG IVPB (15:47)
--- NOTE | 2020-08-20 16:59 | PC.NURSE ---
At 1517, this nurse was rounding on this patient and he started to seize. Patient was turned to his side. The seizure lasted for 1 minute. Vital signs obtained. Dr. Mcclain notified.
[2020-08-20 17:15] LABS: Glucose Point of Care 304 (65-105)
[2020-08-20 18:41] LABS: Vancomycin Trough 6.4 ug/mL (10.0-20.0)
[2020-08-20] MEDS: METOPROLOL TARTRATE INJ 5 MG/5 ML VIAL IV PUSH (21:16)
[2020-08-20] MEDS: INSULIN GLARGINE (*BKC) 100 UNITS/ML 14 UNITS SUB-Q (21:31)
[2020-08-20 21:39] LABS: Glucose Point of Care 251 (65-105)
[2020-08-20 23:57] LABS: Glucose Point of Care 223 (65-105)
[2020-08-21] VITALS (18 sets, daily range): BP systolic 143–171; BP diastolic 67–98; PULSE 61–84; RESP 14–24; TEMP 36.1–36.6; O2SAT 94–100
[2020-08-21] MEDS: KCL 20 MEQ/D5/0.9% SOD CHL 1,000 ML 70 ML IV CONT ×2 (02:03→18:11)
[2020-08-21] MEDS: AMPICILLIN 2 GM/NS 100 ML 2 GM/100 ML BAG IVPB ×6 (02:04→23:01)
[2020-08-21 05:47] LABS: Basophils Percent Auto 0.1 % (0.2-1.2); Eosinophils Percent Auto 0.1 % (0-4.4); Hematocrit 37.6 % (42.0-52.0); Hemoglobin 12.7 g/dL (14.0-18.0); Immature Granulocyte Absolute 0.04 K/mm3 (0.00-0.031); Immature Granulocyte Percent A 0.4 % (0-0.5); Lymphocytes Absolute Auto 0.65 K/mm3 (0.9-3.2); Lymphocytes Percent Auto 6.9 % (18.3-44.2); Mean Corpuscular HGB Conc 33.8 g/dl (32-36); Mean Corpuscular Hemoglobin 33.2 pg (26-34); Mean Corpuscular Volume 98.2 fl (80-100); Mean Platelet Volume 9.7 fl (7.4-10.4); Monocytes Absolute Auto 0.6 K/mm3 (0.1-0.6); Monocytes Percent Auto 6.3 % (2.6-8.5); Neutrophils Absolute Auto 8.1 K/mm3 (1.3-6.7); Neutrophils Percent Auto 86.2 % (45.5-73.1); Platelet Count Result 227 k/mm3 (150-375); Red Blood Count 3.83 M/mm3 (4.6-6.20); Red Cell Distribution Width 13.3 % (11.5-14.5); White Blood Count 9.4 K/mm3 (4.5-10.0)
[2020-08-21 06:17] LABS: Glucose Point of Care 149 (65-105)
[2020-08-21] MEDS: METOPROLOL TARTRATE INJ 5 MG/5 ML VIAL IV PUSH ×3 (06:26→18:50)
[2020-08-21] MEDS: ACYCLOVIR SODIUM IVPB 700 MG in DEXTROSE 5% IN WATER 250 ML 266 MG IVPB ×3 (07:30→23:02)
[2020-08-21] MEDS: PANTOPRAZOLE SODIUM IV 40 MG VIAL IV PUSH (08:24)
[2020-08-21] MEDS: levETIRAcetam IV 750 MG in DEXTROSE 5% 100 ML 430 MG IVPB ×2 (09:06→20:34)
[2020-08-21] MEDS: INSULIN ASPART (*BKC) 100 UNITS/ML SUB-Q ×2 (12:10→18:23)
[2020-08-21 12:26] LABS: Glucose Point of Care 229 (65-105)
[2020-08-21 12:33] LABS: Alanine Aminotransferase 21 U/L (4-50); Albumin Level 2.8 g/dL (3.5-5.1); Alkaline Phosphatase 74 U/L (38-126); Anion Gap 5 mmol/L (8-16); Aspartate Amino Transferase 30 U/L (17-59); Bilirubin,Total 0.5 mg/dL (0.2-1.3); Blood Urea Nitrogen 19 mg/dL (9-20); CRP 0.8 mg/dL (<1.0); Calcium 8.1 mg/dL (8.4-10.2); Carbon Dioxide 28 mmol/L (22-30); Chloride 107 mmol/L (98-107); Estimated CRCL calculation 78 ml/min; Estimated Glomerular Filt Rate > 60; Glucose 125 mg/dL (75-110); Magnesium 1.8 mg/dL (1.6-2.3); Phosphorus 2.5 mg/dL (2.5-4.5); Potassium 2.7 mmol/L (3.4-5.0); Sodium 140 mmol/L (137-145)
[2020-08-21 15:09] LABS: Myoglobin, Urine 2690 mcg/L (<28)
--- NOTE | 2020-08-21 15:16 | WPDNEUROPN ---
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) Status: Acute (2) Seizure disorder: Code(s): G40.909 - Epilepsy, unspecified, not intractable, without status epilepticus Status: Acute (3) HTN (hypertension), benign: Code(s): I10 - Essential (primary) hypertension Status: Acute (4) Suspected COVID-19 virus infection: Code(s): Z20.822 - Contact with and (suspected) exposure to COVID-19 Status: Acute (5) Acute metabolic encephalopathy: Code(s): G93.41 - Metabolic encephalopathy Status: Acute (6) Diabetes mellitus with hyperglycemia: 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 Diabetes mellitus type: type 2 Qualified Code(s): E11.65 - Type 2 diabetes mellitus with hyperglycemia; 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 Code(s): E11.65 - Type 2 diabetes mellitus with hyperglycemia Status: Acute (7) Recurrent strokes: Code(s): I63.9 - Cerebral infarction, unspecified Status: Acute Additional Plan bihemispheric neurological deficit with documented abnormal MRI with infarcts in the right cerebellum right frontal lobe chronic encephalomalacia in anteroinferior right frontal lobe and most likely source of the partial seizure with secondary generalization has already been loaded with Keppra at present he is not having recurrent seizures spinal tap has been done and at present he is getting treatment for the infection did all the cultures are obtained right now he looks stable Review of Systems Review of Systems: All systems reviewed & are unremarkable except as noted in HPI and below Exam Const: General: no acute distress, awake, confusion and ill appearing Nutritional Appearance: thin Orientation/consciousness: confusion Limitations: other limitations ( physical and mental) HENMT: Head: normocephalic General nose exam: No nasal discharge present Mouth: Yes Normal oral and palatal mucosa present Eyes: Alignment and Position: alignment abnormal and position abnormal Conjunctivae: conjunctivae normal Sclera: sclerae normal Cornea: corneas normal EOM: EOM abnormal Neck: Neck: other ( head turn to the left side) Resp: Effort & Inspection: normal respiratory effort Auscultation: clear to auscultation bilaterally Cardio: Rate: regular rate Rhythm: regular rhythm GI: Auscultation: normal bowel sounds Neuro: General: Unable to assess gait Cranial nerves: Yes Nystagmus not present Cognition (Neuro): abnormal cognition Speech: Global aphasia present Gait exam (Neuro): Unable to assess gait Motor exam (neuro): Abnormal motor strength present Sensory Exam: Sensory deficit (Neuro) Plantar Reflex Responses: equivocal: bilateral Psych: Speech and movement: Mute speech present Objective Data Vital Signs Vital Signs: Vital Signs - 24 hr 08/20/20 15:30 08/20/20 16:00 08/20/20 18:00 Temperature 36.8 C Pulse Rate 71 70 73 Respiratory Rate 12 18 Blood Pressure 170/75 H 177/86 H Pulse Oximetry 97 96 08/20/20 20:00 08/20/20 21:16 08/20/20 22:00 Temperature 36.0 C L Pulse Rate 72 71 65 Respiratory Rate 22 H Blood Pressure 152/79 H Pulse Oximetry 96 08/21/20 00:00 08/21/20 00:25 08/21/20 00:28 Temperature 36.1 C L Pulse Rate 72 66 Respiratory Rate 22 H Blood Pressure 145/78 H 145/78 H Pulse Oximetry 96 08/21/20 02:00 08/21/20 04:00 08/21/20 06:00 Temperature 36.2 C L Pulse Rate 65 65 70 Respiratory Rate 22 H Blood Pressure 156/69 H Pulse Oximetry 96 08/21/20 06:16 08/21/20 06:26 08/21/20 08:00 Temperature 36.5 C Pulse Rate 82 65 Respiratory Rate 16 Blood Pressure 156/69 H 171/86 H Pulse Oximetry 94 08/21/20 10:00 08/21/20 12:00 08/21/20 12:11 Temperature 36.3 C L Pulse Rate 69 70 84 Respiratory Rate 24 H Blood Pressure 155/81 H Pulse Oximetry 97
--- NOTE | 2020-08-21 15:36 | PM.IMPN ---
Progress Note: A&P Assessment and Plan (1) Sepsis due to undetermined organism: Code(s): A41.9 - Sepsis, unspecified organism Status: Acute Assessment and Plan: Patient with fevers, AMS, lactic acidosis and tachycardia. BCx postive growing Coag Negative Staph (1of2). CXR clear. CT brain showing nothing acute. WBC 14K. The patient was started on cefepime and vancomycin but changed to meningitic abx 08/19/20; Acyclovir added 08/20. MRI brain showing no acute findings. LP performed 08/20 but only 7cc obtained due to seizure. CSF showing 826 WBC with 98% neutrophils, no MO on gram stain, and glucose and protein high. Suspect bacterial meningitis. Continue current abx and antivirals. Clinically much better. Appreciate neurology input. (2) Meningitis: Code(s): G03.9 - Meningitis, unspecified Status: Acute Assessment and Plan: LP results as mentioned above. WBC not >1000 but elevated to 826 with 98% neutrophils (usually >80% for bacterial meningitis). Glucose is high but ha has elevated serum glucose with ration of 0.49. CSF Protein elevated at 186 (usually>200). LP results may have been dampened by the delay in getting the LP and that he was on abx. Clinically improved. Follow up on culture results. (3) Seizure disorder: Code(s): G40.909 - Epilepsy, unspecified, not intractable, without status epilepticus Status: Acute Assessment and Plan: Patient had witnessed seizure in radiology. Could have been having seizures that were unwitnessed or unrecognized. Keppra started. Seizure precautions. Mental status improved today. 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 COVID negative. CXR clear. BCx positive as above. UA not consistent with infection. The patient had fallen on the ground and been down for unknown amount of time. LP results as above. [place] AMS related to infectious process from meningitis. Continue IV abx for meningitis coverage. Mental status much improved but will place NGT for nutrition. (5) Diabetes mellitus with hyperglycemia: Qualifiers: Diabetes mellitus long-term insulin use: with rn long term care use Diabetes mellitus type: type 2 Qualified Code(s): E11.65 - Type 2 diabetes mellitus with hyperglycemia; Z79.4 - nursing home (current) use of insulin Code(s): E11.65 - Type 2 diabetes mellitus with hyperglycemia Status: Acute Assessment and Plan: A1c 13.9. Glucose elevated to 594 on admission. Glucose reviewed on 08/21 and better at times but still elevated. Continue Lantus and advance (6) Anemia: Code(s): D64.9 - Anemia, unspecified Status: Acute Assessment and Plan: Very mild anemia. B12/folate okay. Iron studies consistent with iron deficiency anemia. Possibly from mild GI blood loss. Hgb 12.4 on admission and stable in the 11-12 range. Follow (7) Elevated troponin: Code(s): R77.8 - Other specified abnormalities of plasma proteins Status: Acute Assessment and Plan: Trop normal on admission but climbed to 0.075 before trending down. EKG reviewed showing no acute findings. [place] Type II [place] related to above. (8) Guaiac positive stools: Code(s): R19.5 - Other fecal abnormalities Status: Acute Assessment and Plan: Could be related to upper or lower GI tract. Hgb stable in the 11-12 range. Continue Protonix and follow HH closely. Transfuse as needed. may need GI evaluation. (9) HTN (hypertension), benign: Code(s): I10 - Essential (primary) hypertension Status: Acute Assessment and Plan: Blood pressure elevated since admission. He is off his antihypertensive medications which is contributing to this. He ihas been mildly tachycardic probably related to being off of propranolol. Lopressor IV
[2020-08-21 18:23] LABS: Glucose Point of Care 214 (65-105)
[2020-08-21 20:20] LABS: Glucose Point of Care 278 (65-105)
[2020-08-21] MEDS: INSULIN GLARGINE (*BKC) 100 UNITS/ML 18 UNITS SUB-Q (20:22)
[2020-08-21 23:29] LABS: Glucose Point of Care 425 (65-105)
[2020-08-21] MEDS: INSULIN ASPART (*BKC) 100 UNITS/ML 12 UNITS SUB-Q (23:57)
[2020-08-22] VITALS (16 sets, daily range): BP systolic 123–166; BP diastolic 69–87; PULSE 64–102; RESP 15–26; TEMP 36.1–36.9; O2SAT 93–100
[2020-08-22] MEDS: KCL 20MEQ/0.9% SOD CHL 1,000 ML 70 ML IV CONT ×2 (02:58→17:32)
[2020-08-22] MEDS: AMPICILLIN 2 GM/NS 100 ML 2 GM/100 ML BAG IVPB ×6 (02:58→21:30)
[2020-08-22] MEDS: VALSARTAN 160 MG TABLET 320 MG FEED TUBE (02:59)
[2020-08-22] MEDS: amLODIPine BESYLATE 2.5 MG TABLET FEED TUBE (02:59)
[2020-08-22 03:09] LABS: Glucose Point of Care 86 (65-105)
[2020-08-22 04:06] LABS: Glucose Point of Care 150 (65-105)
[2020-08-22 05:55] LABS: Basophils Percent Auto 0.2 % (0.2-1.2); Eosinophils Percent Auto 0.4 % (0-4.4); Hematocrit 42.2 % (42.0-52.0); Hemoglobin 14.2 g/dL (14.0-18.0); Immature Granulocyte Absolute 0.04 K/mm3 (0.00-0.031); Immature Granulocyte Percent A 0.5 % (0-0.5); Immature Platelet Fraction Pct 3.7 % (0.9-11.2); Lymphocytes Absolute Auto 0.76 K/mm3 (0.9-3.2); Mean Corpuscular HGB Conc 33.6 g/dl (32-36); Mean Corpuscular Hemoglobin 33.3 pg (26-34); Mean Corpuscular Volume 98.8 fl (80-100); Mean Platelet Volume 9.9 fl (7.4-10.4); Monocytes Absolute Auto 0.7 K/mm3 (0.1-0.6); Monocytes Percent Auto 8.1 % (2.6-8.5); Neutrophils Absolute Auto 6.9 K/mm3 (1.3-6.7); Neutrophils Percent Auto 81.8 % (45.5-73.1); Platelet Count Result 330 k/mm3 (150-375); Red Blood Count 4.27 M/mm3 (4.6-6.20); Red Cell Distribution Width 13.3 % (11.5-14.5); White Blood Count 8.5 K/mm3 (4.5-10.0)
[2020-08-22 06:00] LABS: Glucose Point of Care 160 (65-105)
[2020-08-22] MEDS: METOPROLOL TARTRATE INJ 5 MG/5 ML VIAL IV PUSH ×3 (06:01→17:33)
[2020-08-22 06:31] LABS: Vancomycin Trough 12.2 ug/mL (10.0-20.0)
[2020-08-22 07:16] LABS: Alanine Aminotransferase 21 U/L (4-50); Albumin Level 2.7 g/dL (3.5-5.1); Alkaline Phosphatase 76 U/L (38-126); Anion Gap 4 mmol/L (8-16); Aspartate Amino Transferase 28 U/L (17-59); Bilirubin,Total 0.4 mg/dL (0.2-1.3); Blood Urea Nitrogen 13 mg/dL (9-20); Calcium 7.7 mg/dL (8.4-10.2); Carbon Dioxide 28 mmol/L (22-30); Chloride 106 mmol/L (98-107); Estimated CRCL calculation 92 ml/min; Estimated Glomerular Filt Rate > 60; Glucose 99 mg/dL (75-110); Magnesium 1.7 mg/dL (1.6-2.3); Phosphorus 3.1 mg/dL (2.5-4.5); Potassium 3.2 mmol/L (3.4-5.0); Sodium 138 mmol/L (137-145)
[2020-08-22] MEDS: PANTOPRAZOLE SODIUM IV 40 MG VIAL IV PUSH (09:55)
[2020-08-22 11:42] LABS: Glucose Point of Care 154 (65-105)
--- NOTE | 2020-08-22 15:20 | PM.IMPN ---
Progress Note: A&P Assessment and Plan (1) Sepsis due to undetermined organism: Code(s): A41.9 - Sepsis, unspecified organism Status: Acute Assessment and Plan: Patient with fevers, AMS, lactic acidosis and tachycardia. BCx postive growing Coag Negative Staph (1of2) but probably a contaminant. CXR clear. CT brain showing nothing acute. WBC 14K. The patient was started on cefepime and vancomycin but changed to meningitic abx 08/19/20; Acyclovir added 08/20. MRI brain showing no acute findings. LP performed 08/20 but only 7cc obtained due to seizure. CSF showing 826 WBC with 98% neutrophils, no MO on gram stain, and glucose and protein high. CSF Cx negative. Suspect bacterial meningitis. Continue current abx and antivirals. Clinically much better. Reopeat BCx. Appreciate neurology input. (2) Meningitis: Code(s): G03.9 - Meningitis, unspecified Status: Acute Assessment and Plan: LP results as mentioned above. CSF WBC not >1000 but elevated to 826 with 98% neutrophils (usually >80% for bacterial meningitis). Glucose is high but patient has elevated serum glucose with ration of 0.49. CSF Protein elevated at 186 (usually>200 for bacterial). LP results may have been dampened by the delay in getting the LP and that he was on abx. Clinically improved. Follow up on culture results. (3) Seizure disorder: Code(s): G40.909 - Epilepsy, unspecified, not intractable, without status epilepticus Status: Acute Assessment and Plan: Patient had witnessed seizure in radiology. Could have been having seizures that were unwitnessed or unrecognized. Keppra started. Seizure precautions. Mental status improved today. 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 COVID negative. CXR clear. BCx positive as above. UA not consistent with infection. The patient had fallen on the ground and been down for unknown amount of time. LP results as above. [place] AMS related to infectious process from meningitis. Continue IV abx for meningitis coverage. Mental status slowly improving. 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 Glucose elevated to 594 on admission. Glucose reviewed on 08/22 and much better now. Continue Lantus. (6) Anemia: Code(s): D64.9 - Anemia, unspecified Status: Acute Assessment and Plan: Very mild anemia. B12/folate okay. Iron studies consistent with iron deficiency anemia. Possibly from intermittent and mild GI blood loss. Hgb 12.4 on admission and up to 14 now despite IV fluids. Follow (7) Elevated troponin: Code(s): R77.8 - Other specified abnormalities of plasma proteins Status: Acute Assessment and Plan: Trop normal on admission but climbed to 0.075 before trending down. EKG reviewed showing no acute findings. [place] Type II [place] related to above. (8) Guaiac positive stools: Code(s): R19.5 - Other fecal abnormalities Status: Acute Assessment and Plan: Could be related to upper or lower GI tract. Hgb up to 14 now. Continue Protonix and follow HH. Transfuse as needed. May need GI evaluation. (9) HTN (hypertension), benign: Code(s): I10 - Essential (primary) hypertension Status: Acute Assessment and Plan: Blood pressure reviewed on 08/22. He was off his antihypertensive medications which contributed to his elevated BP. He has been mildly tachycardic probably related to being off of propranol
[2020-08-22 16:22] LABS: Cryptococcus Antigen Not Detected (Not Detected); Cryptococcus Specimen Source CSF
[2020-08-22 17:16] LABS: Glucose Point of Care 190 (65-105)
[2020-08-22] MEDS: POTASSIUM CHLORIDE 20 MEQ PACKET (FOR LIQUID) FEED TUBE (17:47)
[2020-08-22] MEDS: ENOXAPARIN 40 MG/0.4 ML SYRINGE SUB-Q (18:53)
[2020-08-22] MEDS: INSULIN GLARGINE (*BKC) 100 UNITS/ML 20 UNITS SUB-Q (21:39)
[2020-08-22 22:12] LABS: Herpes Simplex Type 1 DNA PCR Not Detected (Not Detected); Herpes Simplex Type 2 DNA PCR Not Detected (Not Detected)
[2020-08-22 23:42] LABS: Creatinine, Random Urine 53 mg/dL (20-320); Total Protein/Creatinine Ratio 2698 mg/g creat (22-128)
[2020-08-23] VITALS (18 sets, daily range): BP systolic 138–181; BP diastolic 72–97; PULSE 66–102; RESP 14–19; TEMP 36.5–37.1; O2SAT 93–98; BMI 25.2
[2020-08-23 00:06] LABS: Glucose Point of Care 282 (65-105)
[2020-08-23] MEDS: INSULIN ASPART (*BKC) 100 UNITS/ML SUB-Q ×2 (00:06→14:03)
[2020-08-23] MEDS: METOPROLOL TARTRATE INJ 5 MG/5 ML VIAL IV PUSH ×3 (00:08→14:19)
[2020-08-23] MEDS: AMPICILLIN 2 GM/NS 100 ML 2 GM/100 ML BAG IVPB ×6 (02:06→22:04)
[2020-08-23 05:26] LABS: Basophils Percent Auto 0.4 % (0.2-1.2); Eosinophils Absolute Auto 0.1 K/mm3 (0-0.3); Hematocrit 35.5 % (42.0-52.0); Hemoglobin 12.1 g/dL (14.0-18.0); Immature Granulocyte Absolute 0.03 K/mm3 (0.00-0.031); Immature Granulocyte Percent A 0.6 % (0-0.5); Lymphocytes Absolute Auto 0.42 K/mm3 (0.9-3.2); Lymphocytes Percent Auto 8.2 % (18.3-44.2); Mean Corpuscular HGB Conc 34.1 g/dl (32-36); Mean Corpuscular Hemoglobin 32.9 pg (26-34); Mean Corpuscular Volume 96.5 fl (80-100); Mean Platelet Volume 9.8 fl (7.4-10.4); Monocytes Absolute Auto 0.4 K/mm3 (0.1-0.6); Monocytes Percent Auto 8.4 % (2.6-8.5); Neutrophils Absolute Auto 4.2 K/mm3 (1.3-6.7); Neutrophils Percent Auto 81.4 % (45.5-73.1); Platelet Count Result 239 k/mm3 (150-375); Red Blood Count 3.68 M/mm3 (4.6-6.20); Red Cell Distribution Width 13.1 % (11.5-14.5); White Blood Count 5.1 K/mm3 (4.5-10.0)
[2020-08-23 05:43] LABS: Alanine Aminotransferase 19 U/L (4-50); Albumin Level 2.6 g/dL (3.5-5.1); Alkaline Phosphatase 70 U/L (38-126); Anion Gap 2 mmol/L (8-16); Aspartate Amino Transferase 20 U/L (17-59); Bilirubin,Total 0.5 mg/dL (0.2-1.3); Blood Urea Nitrogen 12 mg/dL (9-20); CRP 5.1 mg/dL (<1.0); Calcium 7.9 mg/dL (8.4-10.2); Carbon Dioxide 30 mmol/L (22-30); Chloride 105 mmol/L (98-107); Estimated CRCL calculation 92 ml/min; Estimated Glomerular Filt Rate > 60; Glucose 186 mg/dL (75-110); Potassium 3.3 mmol/L (3.4-5.0); Sodium 137 mmol/L (137-145)
[2020-08-23 07:01] LABS: Albumin 3.7 g/dL (3.8-4.8); Alpha 1 Globulin 0.3 g/dL (0.2-0.3); Alpha 2 Globulin 0.9 g/dL (0.5-0.9); Beta 1 Globulin 0.4 g/dL (0.4-0.6); Gamma Globulin 0.4 g/dL (0.8-1.7); Interpretation Consistent with
[2020-08-23] MEDS: VALSARTAN 160 MG TABLET 320 MG FEED TUBE (08:00)
[2020-08-23] MEDS: amLODIPine BESYLATE 2.5 MG TABLET FEED TUBE (08:00)
[2020-08-23] MEDS: PANTOPRAZOLE SODIUM IV 40 MG VIAL IV PUSH (08:00)
[2020-08-23] MEDS: POTASSIUM CHLORIDE 20 MEQ PACKET (FOR LIQUID) 40 MEQ FEED TUBE (08:01)
[2020-08-23] MEDS: ENOXAPARIN 40 MG/0.4 ML SYRINGE SUB-Q (08:01)
--- NOTE | 2020-08-23 11:41 | PCDIET ---
Spoke with Dr. Rosado. Verbal order to change to Glucerna 1.2 and keep rate at 60mL/hr.
[2020-08-23 12:40] LABS: Glucose Point of Care 203 (65-105)
[2020-08-23] MEDS: CENTRAL LINE FLUSH 10 ML IV PUSH ×3 (14:04→22:04)
--- NOTE | 2020-08-23 14:49 | PM.IMPN ---
Progress Note: A&P Assessment and Plan (1) Sepsis due to undetermined organism: Code(s): A41.9 - Sepsis, unspecified organism Status: Acute Assessment and Plan: Patient with fevers, AMS, lactic acidosis and tachycardia. BCx postive growing Coag Negative Staph (1of2) but probably a contaminant (repeat BCx 08/21 NGTD). CXR clear. CT brain showing nothing acute. WBC 14K. The patient was started on cefepime and vancomycin but changed to meningitic abx 08/19/20; Acyclovir added 08/20. MRI brain showing no acute findings. LP performed 08/20 but only 7cc obtained due to seizure. CSF showing 826 WBC with 98% neutrophils, no MO on gram stain, and glucose and protein high. CSF Cx NGTD. Suspect bacterial meningitis. Continue current abx. Clinically much better. Appreciate neurology input. (2) Meningitis: Code(s): G03.9 - Meningitis, unspecified Status: Acute Assessment and Plan: LP results as mentioned above. CSF WBC not >1000 but elevated to 826 with 98% neutrophils (usually >80% for bacterial meningitis). Glucose is high but patient has elevated serum glucose with ration of 0.49. CSF Protein elevated at 186 (usually>200 for bacterial). LP results may have been dampened by the delay in getting the LP and that he was on abx. VDRL nonreactive. Crypto negative. CSF Cx NGTD. Continue current abx for meningitis. HSV PCR negative so Acyclovir stopped. Clinically improved. Follow up on culture results. (3) Seizure disorder: Code(s): G40.909 - Epilepsy, unspecified, not intractable, without status epilepticus Status: Acute Assessment and Plan: Patient had witnessed seizure in radiology. Could have been having seizures that were unwitnessed or unrecognized. Keppra started. Seizure precautions. Mental status improving. 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 COVID negative. CXR clear. BCx positive as above. UA not consistent with infection. The patient had fallen on the ground and been down for unknown amount of time. LP results as above. [place] AMS related to infectious process from meningitis +/- seizures. Continue IV abx for meningitis coverage. Mental status slowly improving. (5) Diabetes mellitus with hyperglycemia: Qualifiers: Diabetes mellitus emt intermediate insulin use: with jail use Diabetes mellitus type: type 2 Qualified Code(s): E11.65 - Type 2 diabetes mellitus with hyperglycemia; Z79.4 - long-term (current) use of insulin Code(s): E11.65 - Type 2 diabetes mellitus with hyperglycemia Status: Acute Assessment and Plan: A1c 13.9. Glucose elevated to 594 on admission. Glucose reviewed on 08/23. Glucose elevated at times but overall much better now. Continue Lantus. Change to Glucerna. (6) Anemia: Code(s): D64.9 - Anemia, unspecified Status: Acute Assessment and Plan: Very mild anemia. B12/folate okay. Iron studies consistent with iron deficiency anemia. Possibly from intermittent and mild GI blood loss. Hgb 12-14 range. Follow (7) Elevated troponin: Code(s): R77.8 - Other specified abnormalities of plasma proteins Status: Acute Assessment and Plan: Trop normal on admission but climbed to 0.075 before trending down. EKG reviewed showing no acute findings. [place] Type II [place] related to above. Check Echo (8) Guaiac positive stools: Code(s): R19.5 - Other fecal abnormalities Status: Acute Assessment and Plan: Could be related to upper or lower GI tract. Hgb stable at 12-14 now. Continue Protonix and follow HH. Transfuse as needed. May need GI evaluation. (9) HTN (hypertension), benign: Code(s): I10 - Essential (primary) hypertension Status: Acute Assessment and Plan: Blood pressure reviewed o
[2020-08-23 15:48] LABS: VDRL Quantitative CSF Nonreactive (Nonreactive)
[2020-08-23 17:11] LABS: Glucose Point of Care 135 (65-105)
[2020-08-23] MEDS: INSULIN GLARGINE (*BKC) 100 UNITS/ML 20 UNITS SUB-Q (20:42)
[2020-08-23] MEDS: METOPROLOL TARTRATE 25 MG TABLET FEED TUBE (20:43)
[2020-08-23 23:12] LABS: Glucose Point of Care 120 (65-105)
[2020-08-24] VITALS (17 sets, daily range): BP systolic 119–151; BP diastolic 61–75; PULSE 63–78; RESP 11–20; TEMP 36.4–36.6; O2SAT 96–99
--- NOTE | 2020-08-24 | ECHO_ITS ---
Patient Info Name: Richi Bautista Age: 80 years : 1940 Gender: Male Ht: 72 in Wt: 186 lbs BSA: 2.08 m2 HR: 65 bpm BP: 136 / 75 mmHg Heart Rhythm: Sinus Rhythm Technical Quality: Fair Exam Date: 08/24/2020 9:22 AM Exam Location: [facility] Pulmonary Patient Status: Inpatient Admit Date: 08/19/2020 Staff Ordering Physician: Joce Rosado MD Mental Tester: Pascual Casanova RDCS Attending Provider: Zay Jain MD Exam Type: CA echo doppler color flow Study Info Indications R65.21 - Severe sepsis with septic shock Complete two-dimensional, color flow and Doppler transthoracic echocardiogram is performed. History/Risk Factors NSTEMI - Elevated trops; sepsis, tachycardia, fevers, DM, AMS, HTN. Summary 1. Complete two-dimensional, color flow and Doppler transthoracic echocardiogram is performed. 2. Normal LV size, mild LVH, borderline LV systolic function with somewhat variable LV contractility, ejection fraction about 50-55%. Grade 1 diastolic dysfunction. Number mitral valve structure, no significant MR. Aortic valve not well visualized, no aortic stenosis by Doppler. Unable to assess RVSP due to inadequate TR jet velocity. Sinus rhythm. Left Ventricle Left ventricular chamber dimension is normal. Left ventricular systolic function is mildly reduced, estimated at 50-55%. There is mildly increased left ventricular wall thickness. The left ventricular diastolic function is grade I diastolic dysfunction. Right Ventricle Right ventricular chamber dimension is normal. Right ventricular systolic function is normal. Left Atria Left atrial chamber dimension is normal. Right Atria Right atrial chamber dimension is normal. Aortic Valve The aortic valve is not well visualized. There is no aortic valve stenosis. Pulmonic Valve The pulmonic valve is not well visualized. Mitral Valve The mitral valve has normal leaflets. Tricuspid Valve The tricuspid valve leaflets are normal. Pericardium/Pleural The pericardium appears normal. Inferior Vena Cava Normal inferior vena cava with >50% collapse upon inspiration consistent with normal right atrial pressure, 8 mmHg. Left Ventricular Outflow Tract Name Value Normal LVOT 2D LVOT Diameter 2.1 cm LVOT Doppler LVOT Peak Gradient 3 mmHg LVOT Mean Gradient 2 mmHg LVOT VTI 17 cm LVOT VTI/AV VTI Ratio 0.7 LVOT Stroke Volume 59 ml LVOT CO 3.7 l/min LVOT CI 1.8 l/min/m2 Mitral Valve Name Value Normal MV Doppler MV [place] 197 cm/s2 MV PHT 93 ms MV Area (PHT) 2.4 cm2 4.0-5.0
[2020-08-24] MEDS: AMPICILLIN 2 GM/NS 100 ML 2 GM/100 ML BAG IVPB ×6 (02:05→22:31)
[2020-08-24] MEDS: CENTRAL LINE FLUSH 10 ML IV PUSH ×4 (05:25→20:51)
[2020-08-24 05:26] LABS: Hematocrit 33.7 % (42.0-52.0); Hemoglobin 11.4 g/dL (14.0-18.0); Mean Corpuscular HGB Conc 33.8 g/dl (32-36); Mean Corpuscular Hemoglobin 33.5 pg (26-34); Mean Corpuscular Volume 99.1 fl (80-100); Mean Platelet Volume 9.5 fl (7.4-10.4); Platelet Count Result 202 k/mm3 (150-375); Red Cell Distribution Width 13.3 % (11.5-14.5); White Blood Count 6.5 K/mm3 (4.5-10.0)
[2020-08-24 05:37] LABS: Anion Gap 1 mmol/L (8-16); Blood Urea Nitrogen 11 mg/dL (9-20); Calcium 7.4 mg/dL (8.4-10.2); Carbon Dioxide 28 mmol/L (22-30); Chloride 106 mmol/L (98-107); Estimated CRCL calculation 92 ml/min; Estimated Glomerular Filt Rate > 60; Glucose 135 mg/dL (75-110); Magnesium 1.8 mg/dL (1.6-2.3); Potassium 3.5 mmol/L (3.4-5.0); Sodium 135 mmol/L (137-145)
[2020-08-24 06:08] LABS: Vancomycin Trough 14.2 ug/mL (10.0-20.0)
[2020-08-24] MEDS: METOPROLOL TARTRATE 25 MG TABLET FEED TUBE ×2 (08:28→20:40)
[2020-08-24] MEDS: ENOXAPARIN 40 MG/0.4 ML SYRINGE SUB-Q (08:28)
[2020-08-24] MEDS: PANTOPRAZOLE SODIUM IV 40 MG VIAL IV PUSH (08:28)
[2020-08-24] MEDS: VALSARTAN 160 MG TABLET 320 MG FEED TUBE (08:29)
[2020-08-24] MEDS: amLODIPine BESYLATE 2.5 MG TABLET FEED TUBE (09:42)
[2020-08-24 10:50] LABS: Haptoglobin 193 mg/dL (43-212)
--- NOTE | 2020-08-24 11:09 | PCDIET ---
Nutrition Follow-Up Complete: Nutrition Diagnosis: Inadequate oral intake related to inability to safely swallow as evidenced by need for enteral feedings. Nutrition Goal: Patient to meet estimated nutritional needs. Goal in progress. Patient tolerating Glucerna 1.2 at 60mL/hr goal rate with 30mL water flush every 4 hours. Once medically appropriate, continue to recommend increasing Glucerna 1.2 to 70-75mL/hr rate. Last recorded weight is 87.2 kg which is increased from last review. +I/O. Bowel Motility: Small BM documented on 08/22/20. Labs Reviewed: Hgb (11.4), Hct (33.7), Glu (135), Na (135), Francesca Ca (8.52) Meds Noted: Norvasc, Ampicillin, Rocephin, Novolog, Lantus, Lopressor, Protonix, Diovan, Vancomycin Additional Notes: Left cheek abrasion. Left lower arm skin tear and scab. No documented pressure sores. Will continue to monitor with same goal. Nutrition Monitoring and Evaluation: Follow up every Sunday/Sunday.
[2020-08-24 12:04] LABS: Glucose Point of Care 190 (65-105)
--- NOTE | 2020-08-24 13:59 | WPDNEUROLOGY ---
Neurology EEG Report General Information Date of Study: 08/20/20 TEST eeg DIAGNOSIS seizures CONDITION OF RECORDING awake EEG NUMBER [id number]
--- NOTE | 2020-08-24 14:01 | WPDNEUROLOGY ---
Neurology EEG Report General Information Date of Study: 08/20/20 TEST eeg DIAGNOSIS Seizures CONDITION OF RECORDING awake with multiple eye movements EEG NUMBER [id number] CLINICAL HISTORY patient was found down and unresponsive. Has been in hospital for couple of days. When down for test and had a seizure with no known history of seizure disorder in the past. EEG DESCRIPTION Whole record consists of diffuse low-voltage to medium voltage 2 to 3 hertz per 2nd delta activity admixed with 5 to 7 hertz per 2nd theta activity and superimposed by low-voltage 15 to 21 hertz per 2nd beta. Hyperventilation not done. Colby stimulation not done. Non paroxysmal. Nonfocal. Nonlateralizing. IMPRESSION Abnormal record due to the presence of bihemispheric theta and delta activity compatible with postictal state or metabolic encephalopathy . No evidence of paroxysmal discharges noted throughout the tracing clinical correlation recommended
[2020-08-24 16:31] LABS: Soluble Transferrin Receptor 1.63 mg/L (0.76-1.76)
[2020-08-24] MEDS: INSULIN ASPART (*BKC) 100 UNITS/ML SUB-Q (17:59)
[2020-08-24 18:05] LABS: Glucose Point of Care 214 (65-105)
[2020-08-24] MEDS: INSULIN GLARGINE (*BKC) 100 UNITS/ML 20 UNITS SUB-Q (20:50)
[2020-08-25] VITALS (16 sets, daily range): BP systolic 118–145; BP diastolic 56–81; PULSE 58–79; RESP 11–19; TEMP 36.6–37.2; O2SAT 91–99
[2020-08-25 00:30] LABS: Glucose Point of Care 172 (65-105)
[2020-08-25] MEDS: AMPICILLIN 2 GM/NS 100 ML 2 GM/100 ML BAG IVPB ×6 (02:05→22:11)
--- NOTE | 2020-08-25 03:53 | PC.NURSE ---
Patient pulled out NG tube. Able to tell me he's sorry but he didn't like it and doesn't want another one. Tube feedings on hold.
[2020-08-25 04:38] LABS: Hematocrit 31.9 % (42.0-52.0); Hemoglobin 10.8 g/dL (14.0-18.0); Mean Corpuscular HGB Conc 33.9 g/dl (32-36); Mean Corpuscular Hemoglobin 33.5 pg (26-34); Mean Corpuscular Volume 99.1 fl (80-100); Mean Platelet Volume 9.3 fl (7.4-10.4); Platelet Count Result 230 k/mm3 (150-375); Red Blood Count 3.22 M/mm3 (4.6-6.20); Red Cell Distribution Width 13.3 % (11.5-14.5); White Blood Count 5.4 K/mm3 (4.5-10.0)
[2020-08-25 04:52] LABS: Potassium 3.6 mmol/L (3.4-5.0)
[2020-08-25] MEDS: CENTRAL LINE FLUSH 10 ML IV PUSH ×4 (05:10→20:01)
[2020-08-25 05:22] LABS: Anion Gap 0 mmol/L (8-16); Blood Urea Nitrogen 13 mg/dL (9-20); Calcium 7.5 mg/dL (8.4-10.2); Carbon Dioxide 30 mmol/L (22-30); Chloride 105 mmol/L (98-107); Estimated CRCL calculation 92 ml/min; Estimated Glomerular Filt Rate > 60; Glucose 133 mg/dL (75-110); Magnesium 1.9 mg/dL (1.6-2.3); Sodium 135 mmol/L (137-145)
[2020-08-25] MEDS: ENOXAPARIN 40 MG/0.4 ML SYRINGE SUB-Q (07:52)
[2020-08-25] MEDS: PANTOPRAZOLE SODIUM IV 40 MG VIAL IV PUSH (07:52)
[2020-08-25 10:57] LABS: Kappa\\Lambda Light Chains 1.05 (0.26-1.65); Lambda Light Chain 13.1 mg/L (5.7-26.3)
[2020-08-25 11:32] LABS: Glucose Point of Care 101 (65-105)
--- NOTE | 2020-08-25 11:58 | PM.IMPN ---
Progress Note: A&P Assessment and Plan (1) Sepsis due to undetermined organism: Code(s): A41.9 - Sepsis, unspecified organism Status: Acute Assessment and Plan: Patient had lactic acidosis tachycardia fever blood culture most likely contaminant patient has negative chest x-ray CT scan of the head was negative MRI of the brain showed chronic stroke EEG showed consistent with seizure patient was treated with cefepime and vancomycin acyclovir also was loaded with Keppra neurology following.. (2) Meningitis: Code(s): G03.9 - Meningitis, unspecified Status: Acute Assessment and Plan: Most likely bacterial will get ID evaluation (3) Seizure disorder: Code(s): G40.909 - Epilepsy, unspecified, not intractable, without status epilepticus Status: Acute Assessment and Plan: Patient had witnessed seizure in radiology. Could have been having seizures that were unwitnessed or unrecognized. Keppra started. Seizure precautions. 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 COVID negative. CXR clear. BCx positive as above. UA not consistent with infection. The patient had fallen on the ground and been down for unknown amount of time. LP results as above. Independence AMS related to infectious process from meningitis. Continue IV abx for meningitis coverage. Mental status slowly improving. (5) Diabetes mellitus with hyperglycemia: Qualifiers: Diabetes mellitus snf insulin use: with intermission coordinator use Diabetes mellitus type: type 2 Qualified Code(s): E11.65 - Type 2 diabetes mellitus with hyperglycemia; Z79.4 - watermaster (current) use of insulin Code(s): E11.65 - Type 2 diabetes mellitus with hyperglycemia Status: Acute Assessment and Plan: A1c 13.9. Glucose elevated to 594 on admission. Insulin sliding scale Continue Lantus. (6) Anemia: Code(s): D64.9 - Anemia, unspecified Status: Acute Assessment and Plan: Monitor CBC workup as outpatient (7) Elevated troponin: Code(s): R77.8 - Other specified abnormalities of plasma proteins Status: Acute Assessment and Plan: Most likely NSTEMI type 2 secondary to demand ischemia secondary to sepsis. (8) Guaiac positive stools: Code(s): R19.5 - Other fecal abnormalities Status: Acute Assessment and Plan: Could be related to upper or lower GI tract. Hgb up to 14 now. Continue Protonix and follow HH. Transfuse as needed. May need GI evaluation. (9) HTN (hypertension), benign: Code(s): I10 - Essential (primary) hypertension Status: Acute Assessment and Plan: Continue home medication. (10) DVT prophylaxis: Code(s): Z29.9 - Encounter for prophylactic measures, unspecified Status: Acute Assessment and Plan: SCDs. Hgb better and no further evidence of GI bleed Lovenox (11) Suspected 2019 novel coronavirus infection: Code(s): Z20.822 - Contact with and (suspected) exposure to COVID-19 Status: Acute Assessment and Plan: COVID negative. Patient taken off of droplet isolation. Subjective Date/time seen: 08/25/20 11:58 Interval history: Patient seen and examined Patient was admitted to the hospital with altered mental status elevated lactic acid leukocytosis patient was treated for acute bacterial meningitis also patient had seizure during hospitalization most likely patient had acute meningitis and seizure present on admission patient was treated with broad-spectrum IV antibiotics LP was done showed neutrophilia patient is more alert Patient pulled out nasogastric tube will get swallow evaluation Patient feels better Patient denies fever headache chest pain shortness of breath I am seeing the patient for altered mental statu
--- NOTE | 2020-08-25 14:27 | PCSTNOTE ---
Please refer to the Bedside Swallow Evaluation in the EMR. Please note, silent aspiration cannot be ruled out at bedside.
--- NOTE | 2020-08-25 16:47 | WPDGICN ---
Assessment and Plan Assessment and plan (1) Guaiac positive stools: Code(s): R19.5 - Other fecal abnormalities Status: Acute Assessment and Plan: no overt gib and hemoglobin relative stable will defer gi work up until his overall condition improves, always can do a colonoscopy as outpatient in few more weeks. Of course if obvious GI bleeding then will do while he is in the hospital (2) Meningitis: Code(s): G03.9 - Meningitis, unspecified Status: Acute Assessment and Plan: on antibiotics, ID to see patient (3) Seizure disorder: Code(s): G40.909 - Epilepsy, unspecified, not intractable, without status epilepticus Status: Acute Assessment and Plan: on iv keppra by neurology will start diet by ST recommendation (4) Anemia: Code(s): D64.9 - Anemia, unspecified Status: Acute Assessment and Plan: mild anemia, complete gi work up when he is more stable (5) Acute metabolic encephalopathy: Code(s): G93.41 - Metabolic encephalopathy Status: Acute Assessment and Plan: improving (6) Diabetes mellitus with hyperglycemia: Qualifiers: Diabetes mellitus terminal gauger insulin use: with terminal gauger use Diabetes mellitus type: type 2 Qualified Code(s): E11.65 - Type 2 diabetes mellitus with hyperglycemia; Z79.4 - skilled nursing (current) use of insulin Code(s): E11.65 - Type 2 diabetes mellitus with hyperglycemia Status: Acute GI Consult Note Consult date/time: 08/25/20 16:47 Reason for consult: occult blood in stool HPI: Richi Bautista is a 80 year old male was brought 08/18/20 via EMS from home with altered mental status and seizures, work up showed possible bacterial meningitis with abnormal lumbar puncture, started on iv antibiotics and admitted to ICU. RN reports that mental status has improved, now he is aware that he is at the hospital and told me the year. He just removed his NGT and will try to eat following speech therapy recommendations. He had mild anemia and occult blood in stool was positive but his bowel movements have been normal per RNjenifer without any blood. Patient is poor historian and can not tell me if he had scopes. He is hemodynamically stable, hb 11-13. Review of Systems Constitutional: Constitutional: Reports weakness ENT: Reports Normal hearing present Cardiovascular: Cardiovascular: Denies chest pain Respiratory: Respiratory: Denies dyspnea Gastrointestinal: Gastrointestinal: Denies nausea and Denies vomiting Genitourinary: Genitourinary: Denies dysuria Musculoskeletal: Musculoskeletal: Denies arthralgias Integumentary/Breasts: Skin/Breast: Denies skin pain Neurologic: Reports confusion Comments: seizures Psychiatric: Psychiatric: Reports confusion [facility] Surgical History Surgical History Surgical history unknown Family History Family History Other Unknown family medical history Social History Social History Social History: The patient is and lives with his . Unknown if patient ever smoke or drink. Patient is unable to answer questions and his is a poor historian Smoking status: Unknown if ever smoked Alcohol intake: unknown Substance use: unknown Gender identity (if verbalized by the patient): Male Spiritual care concerns: No Meds Home Medications and Allergies Home Medications Medication Instructions Recorded Confirmed Type amlodipine 2.5 mg PO DAILY 08/18/20 08/18/20 History dutasteride-tamsulosin 1 cap PO DAILY 08/18/20 08/18/20 History insulin glargine U-300 conc 20 unit SUBCUT HS 08/18/20 08/18/20 History [T[place]uis SoloStar U-300 Insulin] liraglutide [Victoza 3-Tramaine] 1.8 mg SUBCUT DAILY 08/18/20 08/18/20 History propranolol 60 mg PO TID 08/18/20 08/18/20 History rosuvastatin 5 mg PO DA
[2020-08-25 17:35] LABS: Glucose Point of Care 111 (65-105)
[2020-08-25 19:16] LABS: Vancomycin Trough 17.8 ug/mL (10.0-20.0)
[2020-08-25] MEDS: METOPROLOL TARTRATE 25 MG TABLET FEED TUBE (20:01)
[2020-08-25 20:21] LABS: Glucose Point of Care 157 (65-105)
[2020-08-25] MEDS: INSULIN GLARGINE (*BKC) 100 UNITS/ML 20 UNITS SUB-Q (20:26)
[2020-08-25 23:53] LABS: Glucose Point of Care 128 (65-105)
[2020-08-26] VITALS (10 sets, daily range): BP systolic 128–152; BP diastolic 60–76; PULSE 57–79; RESP 11–20; TEMP 36.6–36.9; O2SAT 96–99
[2020-08-26] MEDS: AMPICILLIN 2 GM/NS 100 ML 2 GM/100 ML BAG IVPB ×6 (02:09→21:26)
[2020-08-26 04:36] LABS: Hematocrit 31.7 % (42.0-52.0); Hemoglobin 10.7 g/dL (14.0-18.0); Mean Corpuscular HGB Conc 33.8 g/dl (32-36); Mean Corpuscular Hemoglobin 33.6 pg (26-34); Mean Corpuscular Volume 99.7 fl (80-100); Mean Platelet Volume 9.1 fl (7.4-10.4); Platelet Count Result 258 k/mm3 (150-375); Red Blood Count 3.18 M/mm3 (4.6-6.20); Red Cell Distribution Width 13.4 % (11.5-14.5); White Blood Count 4.2 K/mm3 (4.5-10.0)
[2020-08-26 04:51] LABS: Anion Gap 0 mmol/L (8-16); Blood Urea Nitrogen 11 mg/dL (9-20); Calcium 7.7 mg/dL (8.4-10.2); Carbon Dioxide 30 mmol/L (22-30); Chloride 107 mmol/L (98-107); Estimated CRCL calculation 92 ml/min; Estimated Glomerular Filt Rate > 60; Glucose 80 mg/dL (75-110); Magnesium 1.8 mg/dL (1.6-2.3); Potassium 3.3 mmol/L (3.4-5.0); Sodium 137 mmol/L (137-145)
[2020-08-26] MEDS: CENTRAL LINE FLUSH 10 ML IV PUSH ×4 (06:15→21:27)
[2020-08-26] MEDS: METOPROLOL TARTRATE 25 MG TABLET FEED TUBE ×2 (09:15→20:09)
[2020-08-26] MEDS: amLODIPine BESYLATE 2.5 MG TABLET FEED TUBE (09:15)
[2020-08-26] MEDS: VALSARTAN 160 MG TABLET 320 MG FEED TUBE (09:16)
[2020-08-26] MEDS: PANTOPRAZOLE SODIUM IV 40 MG VIAL IV PUSH (09:19)
--- NOTE | 2020-08-26 10:57 | PCNFU ---
Nutrition Follow-Up Complete: Inadequate oral intake related to inability to safely swallow as evidenced by need for enteral feedings. Goal: Patient to meet estimated nutritional needs. Pt current nutrition is diabetic consistent carbohydrate diet with level 6 soft and bite sized. Last recorded weight is 88.8 kg. Bowel Motility: 08/26 Labs Reviewed: Hgb 10.7, Hct 31.7, K 3.3, Cr .6 Meds Noted: Norvasc, Lantus, Lopressor, Novolog, Protonix, Diovan, Ampicillin, Hydralazine Hcl, Vancomycin Additional Notes: Spoke with patient. He reports eating pancakes, eggs, and yogurt for breakfast this morning. He admits his appetite is not quite how it used to be but it is getting better each day. Patient is making great progress. Due to low potassium levels, recommend potassium replacement if medically appropriate. Follow up every 5 days.
--- NOTE | 2020-08-26 11:10 | PCNSR ---
On 08/26/20, the student, Lilly Fine, provided care and completed [facility] documentation on this patient. I have reviewed the student's documentation and agree with the findings.
[2020-08-26 11:41] LABS: Glucose Point of Care 224 (65-105)
[2020-08-26] MEDS: INSULIN ASPART (*BKC) 100 UNITS/ML SUB-Q ×2 (11:45→16:50)
--- NOTE | 2020-08-26 14:52 | WPDINFPN2 ---
Progress Note: A&P Assessment and Plan (1) Meningitis: Code(s): G03.9 - Meningitis, unspecified Status: Acute Assessment and Plan: Decr LOC, meningitis, bacterial vs viral. Doubt chronic (fungal AFB) infection. REC IV rx until AM 2. Call if other Qs Subjective Date/time seen: 08/26/20 14:52 Objective Data Vital Signs Vital Signs: Vital Signs - 24 hr 08/25/20 16:00 08/25/20 18:00 08/25/20 20:00 Temperature 36.9 C 36.8 C Pulse Rate 60 61 63 Respiratory Rate 12 14 Blood Pressure 128/76 140/64 Pulse Oximetry 99 96 08/25/20 20:01 08/25/20 22:00 08/25/20 23:22 Temperature Pulse Rate 61 63 58 L Respiratory Rate 14 Blood Pressure Pulse Oximetry 98 08/26/20 00:00 08/26/20 02:00 08/26/20 04:00 Temperature 36.8 C 36.9 C Pulse Rate 57 L 60 63 Respiratory Rate 18 11 L Blood Pressure 130/67 132/65 Pulse Oximetry 99 98 08/26/20 06:00 08/26/20 08:00 08/26/20 09:15 Temperature 36.6 C Pulse Rate 67 64 79 Respiratory Rate 16 Blood Pressure 128/60 Pulse Oximetry 96 08/26/20 11:38 Temperature 36.6 C Pulse Rate 62 Respiratory Rate 16 Blood Pressure 143/71 H Pulse Oximetry 98 Intake/Output Intake/Output: Intake & Output 08/23/20 08/24/20 08/25/20 08/26/20 23:59 23:59 23:59 23:59 Intake Total 3695.0 3537.0 2735.0 2027.5 Output Total 1700 2200 2550 1400 Balance 1995.0 1337.0 185.0 627.5 Meds/Results Medications: Active Medications Generic Name Dose Route Start Last Admin Trade Name Freq PRN Reason Stop Dose Admin Amlodipine Besylate 2.5 mg 08/22/20 02:20 08/26/20 09:15 Amlodipine Besylate 2.5 Mg Tablet FEED TUBE 2.5 mg DAILY CLEMENTE Administration Dextrose 12.5 gm 08/18/20 18:13 Dextrose 50% 25 Gm/50 Ml Syringe IV PUSH PRN PRN Hypoglycemia Protocol Diazepam 5 mg 08/20/20 13:50 Diazepam Inj (*Crx) 10 Mg/2 Ml Syringe IV PUSH Q4H PRN Seizures Glucagon 1 mg 08/18/20 18:13 Glucagon For Inj 1 Mg Vial IM PRN PRN Hypoglycemia Protocol Glucose 15 gm 08/18/20 18:13 Glucose Oral Gel 15 Gm Of Glucse In 37.5 Gm Tube PO PRN PRN Hypoglycemia Protocol Hydralazine HCl 10 mg 08/22/20 01:31 Hydralazine Hcl 20 Mg/Ml Vial IV PUSH Q8H PRN Blood Pressure - High Dextrose 1,000 mls @ 100 mls/hr 08/18/20 18:13 Dextrose 5% 1,000 Ml IVPB PRN PRN Hypoglycemia Protocol Ampicillin Sodium 2 gm in 100 mls @ 200 mls/hr 08/19/20 18:00 08/26/20 14:42 Ampicillin 2 Gm/Ns 100 Ml IVPB Infused Q4H CLEMENTE Infusion Ceftriaxone Sodium 2 gm/ 2 gm in 100 mls @ 200 mls/hr 08/22/20 07:00 08/26/20 07:25 Sodium Chloride IVPB Infused Q12H CLEMENTE Infusion Levetiracetam 750 mg/ Sodium 107.5 mls @ 430 mls/hr 08/22/20 09:00 08/26/20 14:16 Chloride IVPB Infused Q12HR CLEMENTE Infusion Vancomycin HCl 1,750 mg/ 1,500 mg in 500 mls @ 333.333 mls/hr 08/24/20 07:00 08/26/20 09:18 Sodium Chloride IVPB Infused Q12H CLEMENTE Infusion Insulin Aspart 4 - 8 units 08/18/20 18:00 08/26/20 11:45 Insulin Aspart (*Bkc) 100 Units/Ml SUB-Q 4 units Q6HR CLEMENTE Administration Protocol Insulin Glargine 20 units 08/22/20 21:00 08/25/20 20:26 Insulin Glargine (*Bkc) 100 Units/Ml SUB-Q 20 units HS CLEMENTE Administration Metoprolol Tartrate 25 mg 08/23/20 21:00 08/26/20 09:15 Metoprolol Tartrate 25 Mg Tablet FEED TUBE 25 mg Q12HR CLEMENTE Administration Ondansetron HCl 4 mg 08/18/20 15:14 Ondansetron Inj 4 Mg/2 Ml Vial IV PUSH Q4H PRN Nausea Pantoprazole Sodium 40 mg 08/20/20 09:00 08/26/20 09:19 Pantoprazole Sodium Iv 40 Mg Vial IV PUSH 40 mg QAM CLEMENTE Administration Sodium Chloride 10 ml 08/23/20 14:00 08/26/20 14:16 Central Line Flush IV PUSH 10 ml Q8HR CLEMENTE Administration Sodium Chloride 10 ml 08/23/20 18:00 08/25/20 17:24 Central Line Flush IV PUSH 10 ml DAILY@1800 CLEMENTE Administrati
--- NOTE | 2020-08-26 16:37 | WPDGIPROGNO ---
Progress Note: A&P Assessment and Plan (1) Guaiac positive stools: Code(s): R19.5 - Other fecal abnormalities Status: Acute Assessment and Plan: no overt gib, hb stable we can see in the office after he is fully treated for his meningitis and then assess if he will be interested on getting a colonoscopy will sign off (2) Meningitis: Code(s): G03.9 - Meningitis, unspecified Status: Acute Assessment and Plan: on treatment, mentation has improved (3) Seizure disorder: Code(s): G40.909 - Epilepsy, unspecified, not intractable, without status epilepticus Status: Acute Assessment and Plan: on meds, controlled (4) Acute metabolic encephalopathy: Code(s): G93.41 - Metabolic encephalopathy Status: Acute Subjective Date/time seen: 08/26/20 16:37 Interval history: he is more alert, no new issues. RN report no signs of GIB Review of Systems Review of Systems: All systems reviewed & are unremarkable except as noted in HPI and below Exam Const: General: comfortable and no acute distress HENMT: General nose exam: Normal nares present Eyes: Pupils: Equal, round and reactive pupils present Neck: Neck: supple Resp: Auscultation: no wheezes and diminished lung sounds Cardio: Rate: regular rate GI: Inspection: non-distended GI Palp: Yes Soft to palpation, No Firmness to palpation present (GI) and No Tenderness to palpation present (GI) Auscultation: normal bowel sounds Skin: General skin exam: normal color Neuro: Speech: normal speech Other: awake and alert, good spirits Extrem: General: no edema Psych: Affect: No Hostile affect present Objective Data Vital Signs Vital Signs: Vital Signs - 24 hr 08/25/20 18:00 08/25/20 20:00 08/25/20 20:01 Temperature 98.2 F Pulse Rate 61 63 61 Respiratory Rate 14 Blood Pressure 140/64 Pulse Oximetry 96 08/25/20 22:00 08/25/20 23:22 08/26/20 00:00 Temperature 98.3 F Pulse Rate 63 58 L 57 L Respiratory Rate 14 18 Blood Pressure 130/67 Pulse Oximetry 98 99 08/26/20 02:00 08/26/20 04:00 08/26/20 06:00 Temperature 98.5 F Pulse Rate 60 63 67 Respiratory Rate 11 L Blood Pressure 132/65 Pulse Oximetry 98 08/26/20 08:00 08/26/20 09:15 08/26/20 11:38 Temperature 97.8 F 97.8 F Pulse Rate 64 79 62 Respiratory Rate 16 16 Blood Pressure 128/60 143/71 H Pulse Oximetry 96 98 Intake/Output Intake/Output: Intake & Output 08/23/20 08/24/20 08/25/20 08/26/20 23:59 23:59 23:59 23:59 Intake Total 3695.0 3537.0 2735.0 2027.5 Output Total 1700 2200 2550 1400 Balance 1995.0 1337.0 185.0 627.5 Meds/Results Medications: Active Medications Generic Name Dose Route Start Last Admin Trade Name Freq PRN Reason Stop Dose Admin Amlodipine Besylate 2.5 mg 08/22/20 02:20 08/26/20 09:15 Amlodipine Besylate 2.5 Mg Tablet FEED TUBE 2.5 mg DAILY CLEMENTE Administration Dextrose 12.5 gm 08/18/20 18:13 Dextrose 50% 25 Gm/50 Ml Syringe IV PUSH PRN PRN Hypoglycemia Protocol Diazepam 5 mg 08/20/20 13:50 Diazepam Inj (*Crx) 10 Mg/2 Ml Syringe IV PUSH Q4H PRN Seizures Glucagon 1 mg 08/18/20 18:13 Glucagon For Inj 1 Mg Vial IM PRN PRN Hypoglycemia Protocol Glucose 15 gm 08/18/20 18:13 Glucose Oral Gel 15 Gm Of Glucse In 37.5 Gm Tube PO PRN PRN Hypoglycemia Protocol Hydralazine HCl 10 mg 08/22/20 01:31 Hydralazine Hcl 20 Mg/Ml Vial IV PUSH Q8H PRN Blood Pressure - High Dextrose 1,000 mls @ 100 mls/hr 08/18/20 18:13 Dextrose 5% 1,000 Ml IVPB PRN PRN Hypoglycemia Protocol Ampicillin Sodium 2 gm in 100 mls @ 200 mls/hr 08/19/20 18:00 08/26/20 14:42 Ampicillin 2 Gm/Ns 100 Ml IVPB 08/28/20 11:59 Infused Q4H CLEMENTE Infusion Ceftriaxone Sodium 2 gm/ 2 gm in 100 mls @ 200 mls/hr 08/22/20 07:00 08/26/20 07:25 Sodium Chloride IVPB 08/28/20 11:59
[2020-08-26 16:44] LABS: Glucose Point of Care 236 (65-105)
--- NOTE | 2020-08-26 17:49 | PC.NURSE ---
This patient, Richi Bautista, was transferred to [ [address] [place] [address]] on 08/26/20 at 1749. Personal belongings sent with patient. Report given to [azalia rn ]. Appropriate documentation sent with patient.
--- NOTE | 2020-08-26 17:50 | PC.NURSE ---
This patient, Richi Bautista, was received from ICU-2 on 08/26/20 at 1750. Received report from JESSICA Estrada. Patient/family oriented to unit policies and routines.
--- NOTE | 2020-08-26 19:14 | CONS_ITS ---
DATE OF CONSULTATION: 08/26/2020 REASON FOR CONSULTATION: Meningitis. HISTORY OF THE PRESENT ILLNESS: An 80-year-old male, who was admitted to the hospital on August 18, with acute onset of decreased level of consciousness. On taking his history, he did notice headache prior to admission, but he cannot recall the details any further. He is unaware of the loss of consciousness. He denies any head trauma. He has had no previous cranial surgery. Denies recent or persistent past drainage from his ears or his nose. He was on no antibiotics prior to admission for any purpose. He has had no previous episodes of meningitis. Upon arrival, the patient had evaluation of including a lumbar puncture and has been on ampicillin, vancomycin, ceftriaxone since then. He also was on acyclovir, now discontinued. Consultation requested yesterday. I was not notified until this afternoon. He presently denies headache, subjective fever, and no chills. He has had no previous spinal injections. ALLERGIES: NONE KNOWN. HABITS: As per record. PRESENT MEDICATIONS: No immunosuppressants here nor at home. PAST MEDICAL HISTORY: Past stroke, witnessed seizure here, but not previously. Diabetes mellitus type 2, quite positive stool. Hypertension. REVIEW OF SYSTEMS: His hospital course has been complicated by electrolyte abnormalities and anemia, hyperglycemia, but not required any surgical intervention. 14-point review otherwise negative. FAMILY HISTORY: Not pertinent to his present illness. SOCIAL HISTORY: Reports being over 50 years. Lives locally. Retired. PHYSICAL EXAMINATION: GENERAL: This is an elderly male, who appears actual age. No acute distress. VITAL SIGNS: Shortly after arrival, he had a T-max of 39.3. The following day up to 39.1, has since been afebrile. 143/71, 62, 16, 98% room air. SKIN: No rashes. Warm and dry. No ulcerations. He has scattered ecchymoses and some skin tears. NODES: No axillary or cervical adenopathy. EENT: Extraocular movements normal. Gaze is conjugate. Pupils equal, round, reactive to light. He has poor dentition. The oropharynx, oral mucosa normal. No paranasal sinus, erythema, edema, tenderness. He has no drainage from his nares nor the ears. NECK: No palpable shunts and he has no neck masses. There is no meningismus. The neck is entirely supple. LUNGS: Clear to auscultation and percussion. CARDIAC: No indwelling vascular devices. Regular rate and rhythm. No murmurs. No heaves. PMI is not displaced. ABDOMEN: Nontender. Soft. No organomegaly. No masses. Dupree catheter in place, which is not chronic. EXTREMITIES: Have 1+ edema distally. LABORATORY DATA: From admission blood cultures 1 of 2 sets coagulase-negative staph. Repeat blood cultures are no growth at 5 days incubation. CSF from 08/20, white cells seen, no organisms. Culture, final no growth. Fungal culture also no growth so far. No fungal element seen on smear. White count 4.2, hemoglobin 10.7, platelets 258, no differential done recently, earlier showed a minimal left shift. White count yesterday was 5.4, it was 11.9 on August 20. Chemistries with mild hyponatremia, hypokalemia, BUN 11, creatinine 0.8. His blood sugars variable 120 up to 425. CPK and troponin high. CRP was 1.2, then 0.8, now 5.1, albumin 2.6. CSF: 86 red cells, 26 white cells, 98% PMNs, glucose 97, and protein was 186. VDRL nonreactive. HSV probe nonreactive. Cryptococcal antigen from the CSF negative. His current negative. The blood sugar at the time of the spinal tab was 223. Radiology, chest x-ray, no active disease. His brain MRI. Old infarcts, right cerebellum, right frontal lobe, chronic encephalomalacia, small-vessel disease. Echocardiogram with
[2020-08-26] MEDS: INSULIN GLARGINE (*BKC) 100 UNITS/ML 20 UNITS SUB-Q (20:08)
[2020-08-26 20:26] LABS: Glucose Point of Care 213 (65-105)
[2020-08-27] VITALS (8 sets, daily range): BP systolic 130–174; BP diastolic 54–67; PULSE 62–84; RESP 18–20; TEMP 36.2–36.8; O2SAT 95–98
[2020-08-27] MEDS: AMPICILLIN 2 GM/NS 100 ML 2 GM/100 ML BAG IVPB ×6 (01:53→21:38)
[2020-08-27] MEDS: CENTRAL LINE FLUSH 10 ML IV PUSH ×3 (05:37→21:40)
[2020-08-27 08:21] LABS: Glucose Point of Care 126 (65-105)
--- NOTE | 2020-08-27 09:22 | PM.IMPN ---
Progress Note: A&P Assessment and Plan (1) Sepsis due to undetermined organism: Code(s): A41.9 - Sepsis, unspecified organism Status: Acute Assessment and Plan: Patient had lactic acidosis tachycardia fever blood culture most likely contaminant patient has negative chest x-ray CT scan of the head was negative MRI of the brain showed chronic stroke EEG showed consistent with seizure patient was treated with cefepime and vancomycin acyclovir also was loaded with Keppra neurology following.. (2) Meningitis: Code(s): G03.9 - Meningitis, unspecified Status: Acute Assessment and Plan: Most likely bacterial ID recommendation appreciated last day of antibiotics on August 28 (3) Seizure disorder: Code(s): G40.909 - Epilepsy, unspecified, not intractable, without status epilepticus Status: Acute Assessment and Plan: Patient had witnessed seizure in radiology. Could have been having seizures that were unwitnessed or unrecognized. Keppra started. continue Keppra and Seizure precautions. 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 COVID negative. CXR clear. BCx positive as above. UA not consistent with infection. The patient had fallen on the ground and been down for unknown amount of time. LP results as above. [place] AMS related to infectious process from meningitis. Continue IV abx for meningitis coverage. improved. 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 Glucose elevated to 594 on admission. Insulin sliding scale Continue Lantus. (6) Anemia: Code(s): D64.9 - Anemia, unspecified Status: Acute Assessment and Plan: Monitor CBC workup as outpatient (7) Elevated troponin: Code(s): R77.8 - Other specified abnormalities of plasma proteins Status: Acute Assessment and Plan: Most likely NSTEMI type 2 secondary to demand ischemia secondary to sepsis. (8) Guaiac positive stools: Code(s): R19.5 - Other fecal abnormalities Status: Acute Assessment and Plan: Could be related to upper or lower GI tract. Hgb up to 14 now. Continue Protonix and follow HH. Transfuse as needed. May need GI evaluation. (9) HTN (hypertension), benign: Code(s): I10 - Essential (primary) hypertension Status: Acute Assessment and Plan: Continue home medication. (10) DVT prophylaxis: Code(s): Z29.9 - Encounter for prophylactic measures, unspecified Status: Acute Assessment and Plan: SCDs. Hgb better and no further evidence of GI bleed Lovenox (11) Suspected 2019 novel coronavirus infection: Code(s): Z20.822 - Contact with and (suspected) exposure to COVID-19 Status: Acute Assessment and Plan: COVID negative. Patient taken off of droplet isolation. Subjective Date/time seen: 08/27/20 09:22 Interval history: Patient seen and examined Patient was admitted to the hospital with altered mental status elevated lactic acid leukocytosis patient was treated for acute bacterial meningitis also patient had seizure during hospitalization most likely patient had acute meningitis and seizure present on admission patient was treated with broad-spectrum IV antibiotics LP was done showed neutrophilia patient is more alert Patient pulled out nasogastric tube Patient had swallow evaluation currently patient tolerated diet well Patient feels better Patient denies feve
[2020-08-27] MEDS: amLODIPine BESYLATE 2.5 MG TABLET FEED TUBE (09:37)
[2020-08-27] MEDS: VALSARTAN 160 MG TABLET 320 MG FEED TUBE (09:37)
[2020-08-27] MEDS: METOPROLOL TARTRATE 25 MG TABLET FEED TUBE ×2 (09:37→20:14)
[2020-08-27] MEDS: PANTOPRAZOLE SODIUM IV 40 MG VIAL IV PUSH (09:38)
[2020-08-27] MEDS: CENTRAL LINE FLUSH 20 ML IV PUSH (10:34)
[2020-08-27 10:45] LABS: Basophils Absolute Auto 0.1 K/mm3 (0.0-0.1); Basophils Percent Auto 0.8 % (0.2-1.2); Eosinophils Absolute Auto 0.2 K/mm3 (0-0.3); Eosinophils Percent Auto 2.3 % (0-4.4); Hematocrit 30.9 % (42.0-52.0); Hemoglobin 10.4 g/dL (14.0-18.0); Immature Granulocyte Absolute 0.05 K/mm3 (0.00-0.031); Immature Granulocyte Percent A 0.8 % (0-0.5); Lymphocytes Absolute Auto 0.43 K/mm3 (0.9-3.2); Lymphocytes Percent Auto 6.7 % (18.3-44.2); Mean Corpuscular HGB Conc 33.7 g/dl (32-36); Mean Corpuscular Hemoglobin 33.1 pg (26-34); Mean Corpuscular Volume 98.4 fl (80-100); Mean Platelet Volume 9.1 fl (7.4-10.4); Monocytes Absolute Auto 0.6 K/mm3 (0.1-0.6); Monocytes Percent Auto 8.7 % (2.6-8.5); Neutrophils Absolute Auto 5.2 K/mm3 (1.3-6.7); Neutrophils Percent Auto 80.7 % (45.5-73.1); Platelet Count Result 287 k/mm3 (150-375); Red Blood Count 3.14 M/mm3 (4.6-6.20); Red Cell Distribution Width 13.4 % (11.5-14.5); White Blood Count 6.4 K/mm3 (4.5-10.0)
[2020-08-27 10:56] LABS: Alanine Aminotransferase 14 U/L (4-50); Albumin Level 2.4 g/dL (3.5-5.1); Alkaline Phosphatase 58 U/L (38-126); Anion Gap 3 mmol/L (8-16); Aspartate Amino Transferase 18 U/L (17-59); Bilirubin,Total 0.2 mg/dL (0.2-1.3); Blood Urea Nitrogen 8 mg/dL (9-20); Calcium 7.6 mg/dL (8.4-10.2); Carbon Dioxide 29 mmol/L (22-30); Chloride 104 mmol/L (98-107); Estimated CRCL calculation 80 ml/min; Estimated Glomerular Filt Rate > 60; Glucose 140 mg/dL (75-110); Potassium 3.4 mmol/L (3.4-5.0); Sodium 136 mmol/L (137-145)
[2020-08-27 12:35] LABS: Glucose Point of Care 123 (65-105)
[2020-08-27 17:42] LABS: Glucose Point of Care 228 (65-105)
[2020-08-27] MEDS: INSULIN ASPART (*BKC) 100 UNITS/ML SUB-Q (17:59)
[2020-08-27 18:19] LABS: SARS-CoV-2 RNA PCR Negative
[2020-08-27] MEDS: INSULIN GLARGINE (*BKC) 100 UNITS/ML 20 UNITS SUB-Q (20:16)
[2020-08-27 21:45] LABS: Glucose Point of Care 208 (65-105)
[2020-08-28] VITALS: BP 154/69; PULSE 69; RESP 18; TEMP 37.2; O2SAT 96
[2020-08-28] MEDS: AMPICILLIN 2 GM/NS 100 ML 2 GM/100 ML BAG IVPB ×3 (02:12→10:09)
[2020-08-28 04:00] VITALS: BP 126/55; PULSE 66; RESP 16; TEMP 36.2; O2SAT 94
[2020-08-28] MEDS: CENTRAL LINE FLUSH 10 ML IV PUSH (05:33)
[2020-08-28 05:53] LABS: Basophils Absolute Auto 0.1 K/mm3 (0.0-0.1); Basophils Percent Auto 0.7 % (0.2-1.2); Eosinophils Absolute Auto 0.1 K/mm3 (0-0.3); Eosinophils Percent Auto 1.4 % (0-4.4); Hematocrit 32.9 % (42.0-52.0); Hemoglobin 11.2 g/dL (14.0-18.0); Immature Granulocyte Absolute 0.04 K/mm3 (0.00-0.031); Immature Granulocyte Percent A 0.4 % (0-0.5); Lymphocytes Absolute Auto 0.71 K/mm3 (0.9-3.2); Mean Corpuscular Hemoglobin 32.9 pg (26-34); Mean Corpuscular Volume 96.8 fl (80-100); Monocytes Absolute Auto 0.7 K/mm3 (0.1-0.6); Monocytes Percent Auto 6.9 % (2.6-8.5); Neutrophils Absolute Auto 8.5 K/mm3 (1.3-6.7); Neutrophils Percent Auto 83.6 % (45.5-73.1); Nucleated Red Blood Cells Perc 0.2 % (0.0-0.2); Platelet Count Result 382 k/mm3 (150-375); Red Cell Distribution Width 13.2 % (11.5-14.5); White Blood Count 10.2 K/mm3 (4.5-10.0)
[2020-08-28 06:11] LABS: Alanine Aminotransferase 13 U/L (4-50); Albumin Level 2.5 g/dL (3.5-5.1); Alkaline Phosphatase 65 U/L (38-126); Anion Gap 2 mmol/L (8-16); Aspartate Amino Transferase 17 U/L (17-59); Bilirubin,Total 0.2 mg/dL (0.2-1.3); Blood Urea Nitrogen 11 mg/dL (9-20); Calcium 7.7 mg/dL (8.4-10.2); Carbon Dioxide 28 mmol/L (22-30); Chloride 107 mmol/L (98-107); Estimated CRCL calculation 70 ml/min; Estimated Glomerular Filt Rate > 60; Glucose 60 mg/dL (75-110); Sodium 137 mmol/L (137-145)
[2020-08-28] MEDS: GLUCOSE ORAL GEL 15 GM OF GLUCSE IN 37.5 GM TUBE PO (06:17)
[2020-08-28 07:32] LABS: Glucose Point of Care 108 (65-105)
[2020-08-28 07:32] LABS: Glucose Point of Care 63 (65-105)
[2020-08-28 09:41] VITALS: PULSE 64
[2020-08-28] MEDS: VALSARTAN 160 MG TABLET 320 MG PO (09:41)
[2020-08-28] MEDS: amLODIPine BESYLATE 2.5 MG TABLET PO (09:41)
[2020-08-28] MEDS: METOPROLOL TARTRATE 25 MG TABLET PO (09:41)
--- NOTE | 2020-08-28 09:41 | PM.DS ---
DS: Admitting Diagnosis Admitting Diagnosis Admitting Diagnosis: Altered mental status DS: Discharge Diagnosis Discharge Diagnosis (1) Sepsis due to undetermined organism: Code(s): A41.9 - Sepsis, unspecified organism Status: Acute Assessment and Plan: Patient had lactic acidosis tachycardia fever blood culture most likely contaminant patient has negative chest x-ray CT scan of the head was negative MRI of the brain showed chronic stroke EEG showed consistent with seizure patient was treated with cefepime and vancomycin acyclovir also was loaded with Keppra neurology following.. (2) Meningitis: Code(s): G03.9 - Meningitis, unspecified Status: Acute Assessment and Plan: Most likely bacterial ID recommendation appreciated last day of antibiotics on August 28 (3) Seizure disorder: Code(s): G40.909 - Epilepsy, unspecified, not intractable, without status epilepticus Status: Acute Assessment and Plan: Patient had witnessed seizure in radiology. Could have been having seizures that were unwitnessed or unrecognized. Keppra started. continue Keppra and Seizure precautions. started on Keppra DC all other antiseizure medication (4) Acute metabolic encephalopathy: Code(s): G93.41 - Metabolic encephalopathy Status: Acute Assessment and Plan: CT brain showing old right sided CVAs. COVID negative. CXR clear. BCx positive as above. UA not consistent with infection. The patient had fallen on the ground and been down for unknown amount of time. LP results as above. [place] AMS related to infectious process from meningitis. Continue IV abx for meningitis coverage. improved. 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 Glucose elevated to 594 on admission. Insulin sliding scale Continue Lantus. (6) Anemia: Code(s): D64.9 - Anemia, unspecified Status: Acute Assessment and Plan: Monitor CBC workup as outpatient (7) Elevated troponin: Code(s): R77.8 - Other specified abnormalities of plasma proteins Status: Acute Assessment and Plan: Most likely NSTEMI type 2 secondary to demand ischemia secondary to sepsis. (8) Guaiac positive stools: Code(s): R19.5 - Other fecal abnormalities Status: Acute Assessment and Plan: Could be related to upper or lower GI tract. plan to follow-up with GI as outpatient for colonoscopy. (9) HTN (hypertension), benign: Code(s): I10 - Essential (primary) hypertension Status: Acute Assessment and Plan: Continue home medication. (10) DVT prophylaxis: Code(s): Z29.9 - Encounter for prophylactic measures, unspecified Status: Acute Assessment and Plan: SCDs. Hgb better and no further evidence of GI bleed Lovenox (11) Suspected 2019 novel coronavirus infection: Code(s): Z20.822 - Contact with and (suspected) exposure to COVID-19 Status: Acute Assessment and Plan: COVID negative. Patient taken off of droplet isolation. DS: Summary Hospital Course Hospital Course: Patient with fevers, AMS, lactic acidosis and tachycardia. BCx postive growing Coag Negative Staph (1of2) but probably a contaminant (repeat BCx 08/21 NGTD). CXR clear. CT brain showing nothing acute. WBC 14K. The patient was started on cefepime and vancomycin but changed to meningitic abx 08/19/20; Acyclovir added 08/20. MRI brain showing no acute findings. LP performed 08/20 but only 7cc obtained due to seizure. CSF showing 826 WBC with 98% neutrophils, no MO on
[2020-08-28] MEDS: PANTOPRAZOLE SODIUM IV 40 MG VIAL IV PUSH (09:43)
[2020-08-28] MEDS: POTASSIUM CHLORIDE 20 MEQ PACKET (FOR LIQUID) 40 MEQ PO ×2 (10:08→12:38)
[2020-08-28] MEDS: NEOMYCIN/POLYMYXIN/BACITRACIN OINTMENT PACKET 1 PACKET (12:10)
--- NOTE | 2020-08-28 12:56 | WPDNEUROPN ---
Progress Note: A&P Assessment and Plan (1) Meningitis: Code(s): G03.9 - Meningitis, unspecified Status: Acute (2) Seizure disorder: Code(s): G40.909 - Epilepsy, unspecified, not intractable, without status epilepticus Status: Acute Additional Plan treated for the meningitis with no specific culture abnormality Pierre patient was already being treated at this stage neurologically he is stable all the blood cultures and spinal fluid cultures are negative ,infectious disease personnel note reviewed ,he will benefit from the therapy Review of Systems Review of Systems: All systems reviewed & are unremarkable except as noted in HPI and below Exam Const: General: no acute distress Nutritional Appearance: thin HENMT: General nose exam: Normal external nose present and No nasal discharge present Face and sinus: normal facial exam Mouth: Yes Normal oral and palatal mucosa present Eyes: General: appearance normal, both eyes and all related structures Alignment and Position: alignment normal Periorbital: periorbital findings normal Eyelids: eyelids normal Conjunctivae: conjunctivae normal Sclera: sclerae normal Cornea: corneas normal EOM: EOMs intact bilaterally Neck: Neck: full ROM Resp: Effort & Inspection: normal respiratory effort Auscultation: clear to auscultation bilaterally Cardio: Rate: regular rate Rhythm: regular rhythm GI: Auscultation: normal bowel sounds Neuro: General: moves all extremities Cranial nerves: Yes CN's II-XII intact bilaterally Gait exam (Neuro): Unable to assess gait Motor exam (neuro): Abnormal motor strength present Deep tendon reflexes (DTR's): Right triceps reflex intensity grade: 1+, Left triceps reflex intensity grade: 1+, Rt Biceps (C5, C6): 1+, Left biceps reflex intensity grade: 1+, Right brachioradialis reflex intensity grade: 1+, Left brachioradialis reflex intensity grade: 1+, Right patellar reflex intensity grade: 1+, Left patellar reflex intensity grade: 1+, Right ankle reflex intensity grade: 1+ and Left ankle reflex intensity grade: 1+ Plantar Reflex Responses: downgoing: right, left and bilateral Objective Data Vital Signs Vital Signs: Vital Signs - 24 hr 08/27/20 16:00 08/27/20 20:00 08/27/20 20:14 Temperature 36.8 C 36.2 C L Pulse Rate 64 70 64 Respiratory Rate 18 18 Blood Pressure 132/58 L 145/67 H Pulse Oximetry 98 95 08/28/20 00:00 08/28/20 04:00 08/28/20 09:41 Temperature 37.2 C 36.2 C L Pulse Rate 69 66 64 Respiratory Rate 18 16 Blood Pressure 154/69 H 126/55 L Pulse Oximetry 96 94 Intake/Output Intake/Output: Intake & Output 08/25/20 08/26/20 08/27/20 08/28/20 23:59 23:59 23:59 23:59 Intake Total 2735.0 3655.0 3575.0 837.5 Output Total 2550 2600 4050 2550 Balance 185.0 1055.0 -475.0 -1712.5 Meds/Results Medications: Active Medications Generic Name Dose Route Start Last Admin Trade Name Freq PRN Reason Stop Dose Admin Amlodipine Besylate 2.5 mg 08/28/20 09:00 08/28/20 09:41 Amlodipine Besylate 2.5 Mg Tablet PO 2.5 mg DAILY CLEMENTE Administration Dextrose 12.5 gm 08/18/20 18:13 Dextrose 50% 25 Gm/50 Ml Syringe IV PUSH PRN PRN Hypoglycemia Protocol Diazepam 5 mg 08/20/20 13:50 Diazepam Inj (*Crx) 10 Mg/2 Ml Syringe IV PUSH Q4H PRN Seizures Glucagon 1 mg 08/18/20 18:13 Glucagon For Inj 1 Mg Vial IM PRN PRN Hypoglycemia Protocol Glucose 15 gm 08/18/20 18:13 08/28/20 06:17 Glucose Oral Gel 15 Gm Of Glucse In 37.5 Gm Tube PO 15 gm PRN PRN Administration Hypoglycemia Protocol Hydralazine HCl 10 mg 08/22/20 01:31 Hydralazine Hcl 20 Mg/Ml Vial IV PUSH Q8H PRN Blood Pressure - High Dextrose 1,000 mls @ 100 mls/hr 08/18/20 18:13 Dextrose 5% 1,000 Ml IVPB PRN PRN Hypoglycemia Protocol Levetiracetam 750 mg/ Sodium 107.5 mls @ 430 mls/hr 08/22/20 09:00 08/28/20 09:57 Chloride IVPB
== END 2020-08-28 12:50 | DRG 871 ==
LOC: ANHED 15:22 → ANHIMU 16:53 → ANHICU 08-23 12:06 → ANH2MED 08-28 09:40 → ANHICU 08-31 16:57 → ANHIMU 08-31 16:57
PROVIDERS: Family Medicine; Internal Medicine; Nurse Practitioner; Physician Assistant; Admitting Provider Family Medicine; Emergency Provider Emergency Medicine; PCP Internal Medicine Endocrinology, Diabetes & Metabolism; Visit Provider Internal Medicine
DX: A41.9 Sepsis, unspecified organism (principal); G93.41 Metabolic encephalopathy; G00.9 Bacterial meningitis, unspecified; I21.A1 Myocardial infarction type 2; N13.8 Other obstructive and reflux uropathy; N40.1 Benign prostatic hyperplasia with lower urinary tract symptoms; Z20.822 Contact with and (suspected) exposure to COVID-19; R77.8 Other specified abnormalities of plasma proteins; G40.909 Epilepsy, unspecified, not intractable, without status epilepticus; G83.84 Todd's paralysis (postepileptic); E11.65 Type 2 diabetes mellitus with hyperglycemia; E86.0 Dehydration; D64.9 Anemia, unspecified; R19.5 Other fecal abnormalities; I10 Essential (primary) hypertension; W19.XXXA Unspecified fall, initial encounter; Z79.4 Long term (current) use of insulin; Z79.899 Other long term (current) drug therapy; Z86.73 Personal history of transient ischemic attack (TIA), and cerebral infarction without residual deficits
CPT/HCPCS: 36415; 36569; 36600; 62328; 70450; 70553; 71045; 80048; 80053; 80202; 81001; 82010; 82247; 82248; 82274; 82550; 82570; 82607; 82728; 82746; 82805; 82945; 82948; 83010; 83036; 83540; 83550; 83605; 83615; 83735; 83874; 83883; 84100; 84155; 84156; 84157; 84165; 84166; 84238; 84443; 84466; 84484; 85025; 85027; 85046; 85055; 85610; 85730; 86140; 86403; 86592; 86880; 87015; 87040; 87070; 87077; 87102; 87116; 87186; 87206; 87529; 88108; 89051; 92610; 93005; 93306; 95816; 96361; 96365; 96366; 96367; 96368; 96375; 96376; 97110; 97116; 97161; 97165; 99285; A9270; A9577; C1751; C9113; C9803; G0378; J0131; J0133; J0290; J0692; J0696; J1650; J1815; J1953; J2060; J3370; J3480; J7030; J7040; J7050; J7060; J7120; U0003; U0005

== ENCOUNTER 2021-04-11 12:32 | Inpatient (IN) | payer MEDICARE, BC, SELFPAY ==
--- NOTE | ~2021-04-11 | CT_ITS ---
EXAMINATION: CT brain wo [facility] EXAM DATE: 04/12/2021 15:13 INDICATION: Fall, head injury. Altered mental status. TECHNIQUE: Spiral CT of the head was performed without contrast. Axial, coronal and sagittal images were reviewed. The dose-length product (DLP) for this examination was 681.00 mGy-cm. The exposure w as tailored according to patient size, and iterative reconstruction (ASIR) was used as additional dos e reduction technique. Comparison is made to prior examination from 08/18/2020. FINDINGS: There is no acute intraparenchymal hemorrhage. No evidence of intraparenchymal brain mass lesion. No evidence of acute infarction. Please note that initial head CT has limited sensitivity f or small or acute infarctions. 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 There is moderate periventric ular and subcortical hypodensity, nonspecific but probably related to small vessel ischemic disease. There is moderate prominence of the sulci and ventricles related to cerebral atrophy. There is in tracranial carotid arteriosclerosis. There are no extra-axial collections. There is no mass effect or midline shift. Patient has had bilateral ocular lens surgery. Soft tissue is unremarkable. The visualized sinuses and mastoid air cells are well aerated. IMPRESSION: 1. No acute intracranial findings. 2. Chronic age related findings. 3. 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 Reviewed, dictated and finalized at location A.
--- NOTE | ~2021-04-11 | US_ITS ---
EXAMINATION: US pelvic limited INDICATION: Hematuria TECHNIQUE: High-resolution ultrasound of the bladder is performed. COMPARISON: None available FINDINGS: A Dupree catheter is in the bladder. There are small echogenic foci within the bladder lumen . Prostate is enlarged. IMPRESSION: 1. Small echogenic foci within the bladder lumen consistent with debris or hematomas. Reviewed, dictated and finalized at location A. IMPRESSION: 1. Small echogenic foci within the bladder lumen consistent with debris or constantino gloria.
[2021-04-11 12:33] VITALS: BP 133/81; PULSE 97; RESP 20; TEMP 36.7; O2SAT 100
--- NOTE | 2021-04-11 12:47 | PC.NURSE ---
pt's current benjamin d/c upon arrival to ed. 25 cc saline removed from balloon. cath removed intact.
--- NOTE | 2021-04-11 13:15 | ED.GENADULT ---
HPI - General Adult General Chief complaint: Urogenital-Male Stated complaint: AMS Time Seen by Provider: 04/11/21 13:14 Source: family, EMS and old records reviewed Mode of arrival: EMS Limitations: physical limitation (parkinsons) History of Present Illness HPI narrative: Patient with history of Parkinson's disease although I cannot find that in his medical record. He had a Benjamin in place for several months per the 's report for what sounds like neurogenic bladder. He is here today because she noted that his abdomen was getting vitale and his Benjamin was not draining appropriately. There is a foul urine smell about the patient. His also tells me that he fell last evening at 1130 and had to lay on the floor until today when she called EMS. Unclear why she did not call EMS last evening. Patient will respond to me that is very slow to answer any questions. Onset (ago): hour(s) Related Data Home Medications Medication Instructions Recorded Confirmed Valentetiaraluis SoloStar U-300 Insulin 20 unit SUBCUT HS 08/18/20 08/18/20 Victoza 3-Tramaine 1.8 mg SUBCUT DAILY 08/18/20 08/18/20 amlodipine 2.5 mg PO DAILY 08/18/20 08/18/20 dutasteride-tamsulosin 1 cap PO DAILY 08/18/20 08/18/20 rosuvastatin 5 mg PO DAILY 08/18/20 08/18/20 valsartan 320 mg PO DAILY 08/18/20 08/18/20 Allergies Allergy/AdvReac Type Severity Reaction Status Date / Time No Known Allergies Allergy Verified 08/20/20 06:46 Review of Systems Review of Systems: All systems reviewed & are unremarkable except as noted in HPI and below ROS unobtainable: Yes other (He repeats I'm ok .) [facility] Surgical History Surgical History Surgical history unknown Family History Family History Other Unknown family medical history Social History Social History Social History: The patient is and lives with his . Unknown if patient ever smoke or drink. Patient is unable to answer questions and his is a poor historian Smoking status: Unknown if ever smoked Alcohol intake: unknown Substance use: unknown Gender identity (if verbalized by the patient): Male Spiritual care concerns: No Exam Const: General: no acute distress and ill appearing Nutritional Appearance: thin Limitations: altered mental status HENMT: Head: normal to inspection Eyes: Pupils: Equal, round and reactive pupils present Resp: Effort & Inspection: normal respiratory effort Auscultation: clear to auscultation bilaterally Cardio: Rate: regular rate Rhythm: regular rhythm GI: GI Palp: Yes Firmness to palpation present (GI) (bladder distension) Auscultation: normal bowel sounds : Penis: Yes normal penis (bleeding after catheter removed.) Back/Spine/Pelvis: Back: no CVA tenderness Skin: General skin exam: normal color Extrem: General: normal to inspection Course Course Emergency Course: Spoke with [facility] for urology. She would like an ultrasound of the bladder to evaluate for blood clots. Abdomen is soft after benjamin replaced. Pt is more alert after hydration. Vital Signs Vital signs: Vital Signs Temperature 36.7 C 04/11/21 12:33 Pulse Rate 97 04/11/21 12:33 Respiratory Rate 20 04/11/21 12:33 Blood Pressure 133/81 04/11/21 12:33 Pulse Oximetry 100 04/11/21 12:33 Temperature 36.7 C 04/11/21 12:33 Pulse Rate 98 04/11/21 19:26 Respiratory Rate 18 04/11/21 19:26 Blood Pressure 149/58 H 04/11/21 19:26 Pulse Oximetry 96 04/11/21 19:26 Medical Decision Making Vital Signs Vital Signs: Vital Signs Temperature 36.7 C 04/11/21 12:33 Pulse Rate 97 04/11/21 12:33 Respiratory Rate 20 04/11/21 12:33 Blood Pressure 133/81 04/11/21 12:33 Pulse Oximetry 100 04/11/21 12:33 Temperature 36.7 C 04/11/21 12:33 Pulse Rate 98 04/11/21 19:2
[2021-04-11] MEDS: SODIUM CHLORIDE 0.9% IV 1,000 ML 999 ML IV CONT ×2 (14:41→16:05)
[2021-04-11 15:03] LABS: Hematocrit 32.5 % (42.0-52.0); Hemoglobin 10.8 g/dL (14.0-18.0); Mean Corpuscular HGB Conc 33.2 g/dl (32-36); Mean Corpuscular Volume 96.4 fl (80-100); Mean Platelet Volume 8.9 fl (7.4-10.4); Platelet Count Result 248 k/mm3 (150-375); Red Blood Count 3.37 M/mm3 (4.6-6.20); Red Cell Distribution Width 13.1 % (11.5-14.5); White Blood Count 9.3 K/mm3 (4.5-10.0)
[2021-04-11 15:04] LABS: Lactic Acid Reflex 1.5 mmol/L (0.7-2.1)
[2021-04-11 15:05] LABS: Anion Gap 14 mmol/L (8-16); Blood Urea Nitrogen 74 mg/dL (9-20); Calcium 9.2 mg/dL (8.4-10.2); Carbon Dioxide 19 mmol/L (22-30); Chloride 106 mmol/L (98-107); Creatine Kinase 204 U/L (55-170); Estimated CRCL calculation 10 ml/min; Estimated Glomerular Filt Rate 21; Glucose 158 mg/dL (65-110); Potassium 4.8 mmol/L (3.4-5.0); Sodium 139 mmol/L (137-145)
[2021-04-11 15:22] LABS: Add Urine Microscopic? YES; Appearance Urine Turbid (Clear); Bilirubin Urine Negative (Negative); Blood Urine 1+ (Negative); Color Urine Yellow (Yellow); Glucose Urine UA Negative (Negative); Ketones Urine Negative (Negative); Leukocyte Esterase Ur 3+ LEU/UL (Negative); Mucus Urine Few /lpf; Nitrate Urine Negative (Negative); Protein Urine 3+ mg/dL (Negative); RBC Urine >75 /hpf (0-2); Specific Grav Ur 1.014 (1.001-1.035); Urobilinogen Urine Negative mg/dL (<2.0); WBC Urine >75 /hpf
[2021-04-11 16:14] LABS: Lymphocytes Absolute Manual 0.09 K/mm3 (1.1-4.5); Lymphocytes Percent Manual 1 % (18-44); Monocytes Percent Manual 13 % (3-9); Platelet Estimate Adequate (Adequate); Total Cells Counted 100
[2021-04-11 16:15] LABS: Band Neutrophils Percent 16 % (0-6); Neutrophils Absolute Manual 7.99 K/mm3 (1.3-6.7); Neutrophils Percent Manual 70 % (46-73)
--- NOTE | 2021-04-11 16:44 | WPDURCON ---
Assessment and Plan Assessment and plan (1) Gross hematuria: Code(s): R31.0 - Gross hematuria Status: Acute Assessment and Plan: Improved after irrigation of 300cc of NS%, small clots removed during irrigation. I backfilled him with 180cc of NS and he was sent to [facility] to confirm that there were no clots present. Likely d/t catheter trauma from him dislodging his benjamin when pulled. Start Ceftriaxone, continue IV antibiotics, tailor abx to culture results. No 3 way benjamin needed at this time, continue to irrigate manually q shift and PRN. (2) Bejnamin catheter problem: Code(s): T83.9XXA - Unspecified complication of genitourinary prosthetic device, implant and graft, initial encounter Status: Acute Assessment and Plan: Resolved after it was replaced today. (3) Neurogenic bladder: Code(s): N31.9 - Neuromuscular dysfunction of bladder, unspecified Status: Acute Assessment and Plan: Continue Monthly catheter changes. Urology Consult Note HPI Date Seen: 04/11/21 Primary Care Provider: [facility] Consult Narrative Narrative: Richi Bautista is a 80 year old male who is a patient of mine presented to the ED today via ambulance. He fell last night at home around 11:30pm and his couldn't get him up. He was confused and weak. She called EMS this morning after he laid in the floor all night. She states he got confused and pulled at his catheter and it was then not draining. As time went on his bladder became more distended. She notes he had cloudy, malodorous urine and blood in the catheter and around the catheter at the meatus after pulling at the benjamin. He has a neurogenic bladder and gets monthly catheter changes. He has been in the office within the last month for a catheter change. His UA is suggestive of a UTI, WBC is 9.3 and creatinine 2.90. His benjamin was exchanged in the ER noting dark bloody uirne, with purulence and clots present. It is now draining. Blood and urine cultures are pending at this time and he is afebrile. A [facility] is being done at this time to rule out large bladder clots. All information was obtained from his chart and , he is not communicating but is alert with eyes open. Review of Systems Review of Systems: ROS unobtainable: Yes unobtainable due to mental status [facility] Surgical History Surgical History Surgical history unknown Family History Family History Other Unknown family medical history Social History Social History Social History: The patient is and lives with his . Unknown if patient ever smoke or drink. Patient is unable to answer questions and his is a poor historian Smoking status: Unknown if ever smoked Alcohol intake: unknown Substance use: unknown Gender identity (if verbalized by the patient): Male Spiritual care concerns: No Meds Home Medications and Allergies Home Medications Medication Instructions Recorded Confirmed Type Raysa ArcheroStar U-300 Insulin 20 unit SUBCUT HS 08/18/20 08/18/20 History Victoza 3-Tramaine 1.8 mg SUBCUT DAILY 08/18/20 08/18/20 History amlodipine 2.5 mg PO DAILY 08/18/20 08/18/20 History dutasteride-tamsulosin 1 cap PO DAILY 08/18/20 08/18/20 History rosuvastatin 5 mg PO DAILY 08/18/20 08/18/20 History valsartan 320 mg PO DAILY 08/18/20 08/18/20 History levetiracetam [Keppra] 750 mg PO BID #60 tablet 08/28/20 Rx metoprolol tartrate 25 mg PO Q12HR #60 tablet 08/28/20 Rx Allergies Allergy/AdvReac Type Severity Reaction Status Date / Time No Known Allergies Allergy Verified 08/20/20 06:46 Vital Signs Vital Signs - 24 hr 04/11/21 12:33 Temperature 98.1 F Pulse Rate 97 Respiratory Rate 20 Blood Pressure 133/81 Pulse Oximetry 100 Exam Resp: Effort & Inspection: normal respir
[2021-04-11 19:26] VITALS: BP 149/58; PULSE 98; RESP 18; O2SAT 96
[2021-04-11 20:00] VITALS: BP 137/60; PULSE 95; RESP 18; TEMP 36.6; O2SAT 98
[2021-04-11] MEDS: SODIUM CHLORIDE 0.9% IV 1,000 ML 125 ML IV CONT (20:24)
--- NOTE | 2021-04-11 20:31 | ADMGEN ---
This patient, Richi Bautista, was admitted to Medical Room 257-01. Patient/family oriented to hospital policies and general routines including ID bracelet, bed and alarms, visiting hours, pain management, procedures, bathroom and other care routines, personal items, smoking policy, room service/diet, and visiting hours. Information on how to activate the Rapid Response Team has been discussed. Patient/Family are encouraged to report perceived risks to care and to ask questions if they do not understand what they are told or what they should do.
[2021-04-11 20:33] VITALS: BMI 20.2
--- NOTE | 2021-04-11 23:42 | PM.IMHP ---
H&P: HPI History of Present Illness Date/Time: 04/11/21 23:42 this is a 80-year-old male patient who resides is this . The patient had a Dupree catheter placed several months ago due to neurogenic bladder. Today the patient came in because his abdomen was distended and his Dupree catheter had not been draining appropriately. The urine was foul smelling. According to the ER notes the explained that the patient fell last night around 11 30 laid on the floor until today when she called EMS. It was not clear why the patient's did not call EMS last night. The patient is not answering my questions and is a very poor historian. Urology has been consulted. The Dupree catheter had been irrigated with 300 cc of normal saline small clots were removed during the irrigation. it was noted that most likely this blood was noted due to trauma from Dislodging his Dupree when pulled out. the Dupree catheter had been replaced by Urology. Patient has a neurogenic bladder. Patient was started on ceftriaxone for urinary Tract infection. H&H is 10.1 and 32.5. The patient's creatinine was 2.9 and BUN 74. Glucose 158. Creatinine most likely elevated due to nonfunctioning Dupree catheter. And urinary retention. The patient is being admitted to inpatient services for urinary tract infection on the date of service of 04/11/2021. Chief Complaint: urinary tract infection fall hematuria Review of Systems Review of Systems: ROS unobtainable: Yes unobtainable due to mental status PMFSH Past Medical History Medical History (Updated 04/11/21 @ 23:51 by Cathi Shetty NP) DM2 (diabetes mellitus, type 2) History of CVA (cerebrovascular accident) History of meningitis HTN (hypertension), benign Neurogenic bladder Seizure disorder Surgical History Surgical History Surgical history unknown Family History Family History Other Unknown family medical history Social History Social History Social History: The patient is and lives with his . Unknown if patient ever smoke or drink. Patient is unable to answer questions and his is a poor historian Smoking status: Unknown if ever smoked Alcohol intake: never Substance use: never Gender identity (if verbalized by the patient): Male Spiritual care concerns: No Meds Home Medications and Allergies Home Medications Medication Instructions Recorded Confirmed Type Raysa Hernández U-300 Insulin 20 unit SUBCUT HS 08/18/20 04/11/21 History insulin lispro [Humalog KwikPen 4 sliding scale dose SUBCUT TID 04/11/21 04/11/21 History Insulin] levetiracetam [Keppra] 500 mg PO BID 04/11/21 04/11/21 History Allergies Allergy/AdvReac Type Severity Reaction Status Date / Time No Known Allergies Allergy Verified 08/20/20 06:46 Vital Signs Vital Signs - 24 hr 04/11/21 12:33 04/11/21 19:26 04/11/21 20:00 Temperature 36.7 C 36.6 C Pulse Rate 97 98 95 Respiratory Rate 20 18 18 Blood Pressure 133/81 149/58 H 137/60 Pulse Oximetry 100 96 98 Exam Const: General: cooperative, comfortable, no acute distress, well developed, alert, awake, Physically active, anxious and ill appearing Nutritional Appearance: average body habitus and thin Orientation/consciousness: oriented to person Limitations: altered mental status HENMT: Head: normal to inspection, No palpable skull fracture present, normocephalic and atraumatic Ears: hearing grossly normal bilaterally and external ears normal General nose exam: Normal external nose present Mouth: Yes dry mucous membranes Eyes: General: appearance normal, both eyes and all related structures Alignment and Position: alignment normal Periorbital: periorbital findings normal Eyelids: eyelids normal Conjunctivae: conjunctivae normal Sclera: sclerae normal C
[2021-04-12] VITALS: BP 142/61; PULSE 97; RESP 18; TEMP 36.8; O2SAT 100
[2021-04-12 00:53] LABS: Hemoglobin 10.2 g/dL (14.0-18.0)
[2021-04-12 04:00] VITALS: BP 127/57; PULSE 84; RESP 22; TEMP 36.8; O2SAT 100
[2021-04-12] MEDS: SODIUM CHLORIDE 0.9% IV 1,000 ML 125 ML IV CONT (05:26)
[2021-04-12 05:57] LABS: Hematocrit 29.9 % (42.0-52.0); Hemoglobin 10.2 g/dL (14.0-18.0); Mean Corpuscular HGB Conc 34.1 g/dl (32-36); Mean Corpuscular Hemoglobin 32.6 pg (26-34); Mean Corpuscular Volume 95.5 fl (80-100); Mean Platelet Volume 8.8 fl (7.4-10.4); Platelet Count Result 199 k/mm3 (150-375); Red Blood Count 3.13 M/mm3 (4.6-6.20); White Blood Count 8.5 K/mm3 (4.5-10.0)
[2021-04-12 06:20] LABS: Lactic Acid Reflex 0.9 mmol/L (0.7-2.1)
[2021-04-12 06:30] LABS: Alanine Aminotransferase 14 U/L (4-50); Albumin Level 3.5 g/dL (3.5-5.1); Alkaline Phosphatase 67 U/L (38-126); Anion Gap 11 mmol/L (8-16); Aspartate Amino Transferase 26 U/L (17-59); Bilirubin,Total 0.6 mg/dL (0.2-1.3); Blood Urea Nitrogen 55 mg/dL (9-20); Calcium 8.8 mg/dL (8.4-10.2); Carbon Dioxide 19 mmol/L (22-30); Chloride 114 mmol/L (98-107); Estimated CRCL calculation 30 ml/min; Estimated Glomerular Filt Rate 39; Glucose 75 mg/dL (65-110); Magnesium 2.1 mg/dL (1.6-2.3); Potassium 3.8 mmol/L (3.4-5.0); Sodium 144 mmol/L (137-145)
[2021-04-12 06:40] LABS: CRP 25.3 mg/dL (<1.0)
[2021-04-12 06:54] LABS: Hemoglobin A1C 6.4 % (<5.7)
[2021-04-12 07:06] LABS: Band Neutrophils Percent 23 % (0-6); Lymphocytes Absolute Manual 0.25 K/mm3 (1.1-4.5); Monocytes Absolute Manual 0.34 K/mm3 (0.1-0.90); Monocytes Percent Manual 4 % (3-9); Neutrophils Percent Manual 70 % (46-73); Total Cells Counted 100
[2021-04-12 07:07] LABS: Platelet Estimate Adequate (Adequate)
[2021-04-12 08:00] VITALS: BP 148/59; PULSE 84; RESP 16; TEMP 36.7; O2SAT 100
[2021-04-12 08:21] LABS: Glucose Point of Care 69 mg/dl (65-105)
[2021-04-12] MEDS: levETIRAcetam 500 MG TABLET PO ×2 (09:03→18:08)
[2021-04-12 11:39] LABS: Glucose Point of Care 171 mg/dl (65-105)
[2021-04-12 12:00] VITALS: BP 148/70; PULSE 83; RESP 18; TEMP 37; O2SAT 100
[2021-04-12 12:22] LABS: Hematocrit 30.4 % (42.0-52.0); Hemoglobin 9.8 g/dL (14.0-18.0)
--- NOTE | 2021-04-12 13:00 | WPDUROPN2 ---
Progress Note: A&P Assessment and Plan (1) Neurogenic bladder: Code(s): N31.9 - Neuromuscular dysfunction of bladder, unspecified Status: Chronic Assessment and Plan: Continue monthly cath changes, it was changed yesterday, the next change will need to be around 05/12/2021. (2) UTI (urinary tract infection) due to urinary indwelling Dupree catheter: Qualifiers: Encounter type: initial encounter Indwelling urinary catheter type: indwelling urethral catheter Qualified Code(s): T83.511A - Infection and inflammatory reaction due to indwelling urethral catheter, initial encounter; N39.0 - Urinary tract infection, site not specified Code(s): T83.511A - Infection and inflammatory reaction due to indwelling urethral catheter, initial encounter; N39.0 - Urinary tract infection, site not specified Status: Acute Assessment and Plan: Continue IV antibiotics, tailor to culture results. No further evaluation needed, hematuria is resolved. Ok to discharge when medically stable. (3) Acute kidney injury: Code(s): N17.9 - Acute kidney failure, unspecified Status: Acute Assessment and Plan: Creatinine is improving, it is down from 2.9 to 1.70. Continue to watch until it returns to baseline. Subjective Subjective Date/Time Seen: 04/12/21 13:00 Patient is s/p catheter irrigation and clot removal at the bedside in the ER yesterday after it got dislodged. He has had intermittent irrigations since at the bedside, but his urine is clear yellow today, without clots. He is sitting up in bed and doing well. Review of Systems Cardiovascular: Cardiovascular: Denies chest pain Respiratory: Respiratory: Denies no additional respiratory complaints Gastrointestinal: Gastrointestinal: Denies abdominal pain, Denies nausea and Denies vomiting Genitourinary: Genitourinary: Denies flank pain Exam Resp: Effort & Inspection: normal respiratory effort Cardio: Rate: regular rate GI: GI Palp: Yes Soft to palpation and No Tenderness to palpation present (GI) : General: Yes no CVA tenderness Urinary Catheter: Urinary Catheter: patent and draining and urine clear Extrem: General: no edema Objective Data Vital Signs Vital Signs: Vital Signs - 24 hr 04/11/21 19:26 04/11/21 20:00 04/12/21 00:00 Temperature 97.9 F 98.2 F Pulse Rate 98 95 97 Respiratory Rate 18 18 18 Blood Pressure 149/58 H 137/60 142/61 H Pulse Oximetry 96 98 100 04/12/21 04:00 04/12/21 08:00 Temperature 98.3 F 98.0 F Pulse Rate 84 84 Respiratory Rate 22 H 16 Blood Pressure 127/57 L 148/59 H Pulse Oximetry 100 100 Intake/Output Intake/Output: Intake & Output 04/09/21 04/10/21 04/11/21 04/12/21 23:59 23:59 23:59 23:59 Intake Total 2049 1300 Output Total 2825 Balance 0 -1525 Meds/Results Medications: Active Medications Generic Name Dose Route Start Last Admin Trade Name Freq PRN Reason Stop Dose Admin Dextrose 12.5 gm 04/11/21 23:43 Dextrose 50% 25 Gm/50 Ml Syringe IV PUSH PRN PRN Hypoglycemia Protocol Glucagon 1 mg 04/11/21 23:43 Glucagon For Inj 1 Mg Vial IM PRN PRN Hypoglycemia Protocol Glucose 15 gm 04/11/21 23:43 Glucose Oral Gel 15 Gm Of Glucse In 37.5 Gm Tube PO PRN PRN Hypoglycemia Protocol Hydralazine HCl 10 mg 04/12/21 00:00 Hydralazine Hcl 20 Mg/Ml Vial IV PUSH Q8H PRN Blood Pressure - High Sodium Chloride 1,000 mls @ 75 mls/hr 04/11/21 17:10 04/12/21 09:03 Normal Saline Iv IV CONT 75 mls/hr .[id number] CLEMENTE Infusion Dextrose 1,000 mls @ 100 mls/hr 04/11/21 23:43 Dextrose 5% 1,000 Ml IVPB PRN PRN Hypoglycemia Protocol Ceftriaxone Sodium/Dextrose 1 gm in 50 mls @ 100 mls/hr 04/12/21 12:00 04/12/21 12:01 Rocephin 1 Gm/D5w 50 Ml IVPB 100 mls/hr DAILY@1200 [facility] Administration Insulin Aspart 2 - 5 units 04/12/21 08:00 04/12/21 12:01 Insulin
--- NOTE | 2021-04-12 14:21 | PM.IMPN ---
Progress Note: A&P Assessment and Plan (1) Gross hematuria: Code(s): R31.0 - Gross hematuria Status: Acute Assessment and Plan: Patient has a history of neurogenic bladder and has a chronic Dupree catheter in place and follows up with Urology, Dr. Worthington for monthly catheter changes. Patient's noticed decreased urine output to his Dupere catheter on Sunday and abdominal distension on Sunday but the patient refused to come to the emergency room. He had then fallen and could not get up so they sent him to the emergency room for further evaluation. Urology evaluated the patient in found to have gross hematuria and irrigated small clots from his bladder. Pelvic ultrasound confirm there were no clots present. Believe hematuria is from Dupree catheter trauma. Urology recommended continuing IV Rocephin for UTI and tailor antibiotics based on culture results. At this time a urine is normal yellow in color, no signs of clots or hematuria. Continue monitoring. Appreciate urology is input. (2) UTI (urinary tract infection) due to urinary indwelling Dupree catheter: Qualifiers: Encounter type: initial encounter Indwelling urinary catheter type: indwelling urethral catheter Qualified Code(s): T83.511A - Infection and inflammatory reaction due to indwelling urethral catheter, initial encounter; N39.0 - Urinary tract infection, site not specified Code(s): T83.511A - Infection and inflammatory reaction due to indwelling urethral catheter, initial encounter; N39.0 - Urinary tract infection, site not specified Status: Acute Assessment and Plan: Patient's urinalysis was very abnormal with 3+ leuk, greater than 75 WBCs, and turbid color in nature. Urine culture and blood cultures have been drawn and pending results Continue with ceftriaxone. Continue with IV fluids due to ALANIS. Continue monitoring urine culture results. (3) Neurogenic bladder: Code(s): N31.9 - Neuromuscular dysfunction of bladder, unspecified Status: Chronic Assessment and Plan: Keep Dupree catheter in place at this time. Will follow up with Urology after discharge. Will need Dupree changed every month. (4) DM2 (diabetes mellitus, type 2): Code(s): E11.9 - Type 2 diabetes mellitus without complications Status: Chronic Assessment and Plan: Hemoglobin A1c is 6.4%. Continue Accu-Cheks AC and HS. Sliding scale insulin. Hypoglycemic orders in place. Substitute long-acting insulin with Lantus. (5) Seizure disorder: Code(s): G40.909 - Epilepsy, unspecified, not intractable, without status epilepticus Status: Chronic Assessment and Plan: Resume Keppra (6) Acute kidney injury: Code(s): N17.9 - Acute kidney failure, unspecified Status: Acute Assessment and Plan: Creatinine on arrival was 2.9 due to urinary retention and UTI. Dupree catheter showing normal urine at this time. IV antibiotics started. IV fluids continued with improvement of creatinine 1.7 today. Continue with fluid resuscitation and recheck labs in the morning. (7) Anemia: Code(s): D64.9 - Anemia, unspecified Status: Acute Assessment and Plan: Normocytic anemia. H&H stable. Will recheck in the morning. No more hematuria at this time. Time Spent With Patient Time with patient: 25 - 35 minutes Subjective Date/time seen: 04/12/21 14:21 Interval history: Date of service 04/12/2021: The patient is a poor historian secondary to dementia. At this time the patient is denying any chest pain, shortness of breath, cough, abdominal pain, or a
[2021-04-12 16:00] VITALS: BP 146/62; PULSE 84; RESP 18; TEMP 36.9; O2SAT 100
[2021-04-12 17:01] LABS: Glucose Point of Care 189 mg/dl (65-105)
[2021-04-12 18:46] LABS: Hemoglobin 10.2 g/dL (14.0-18.0)
[2021-04-12 20:00] VITALS: BP 165/69; PULSE 84; RESP 18; TEMP 36.9; O2SAT 97
[2021-04-12] MEDS: SODIUM CHLORIDE 0.9% IV 1,000 ML 75 ML IV CONT (20:16)
[2021-04-12] MEDS: INSULIN GLARGINE (*BKC) 100 UNITS/ML 16 UNITS SUB-Q (20:21)
[2021-04-12 21:44] LABS: Glucose Point of Care 189 mg/dl (65-105)
[2021-04-13] VITALS: BP 142/77; PULSE 52; RESP 18; TEMP 36.7; O2SAT 90
[2021-04-13 04:00] VITALS: BP 163/58; PULSE 78; RESP 20; TEMP 36.1; O2SAT 98
[2021-04-13 06:05] LABS: Basophils Percent Auto 0.4 % (0.2-1.2); Hematocrit 31.1 % (42.0-52.0); Hemoglobin 9.9 g/dL (14.0-18.0); Immature Granulocyte Absolute 0.02 K/mm3 (0.00-0.031); Immature Granulocyte Percent A 0.4 % (0-0.5); Lymphocytes Absolute Auto 0.27 K/mm3 (0.9-3.2); Mean Corpuscular HGB Conc 31.8 g/dl (32-36); Mean Corpuscular Hemoglobin 32.2 pg (26-34); Mean Corpuscular Volume 101.3 fl (80-100); Mean Platelet Volume 9.4 fl (7.4-10.4); Monocytes Absolute Auto 0.3 K/mm3 (0.1-0.6); Monocytes Percent Auto 5.4 % (2.6-8.5); Neutrophils Absolute Auto 4.8 K/mm3 (1.3-6.7); Neutrophils Percent Auto 88.8 % (45.5-73.1); Platelet Count Result 177 k/mm3 (150-375); Red Blood Count 3.07 M/mm3 (4.6-6.20); Red Cell Distribution Width 12.9 % (11.5-14.5); White Blood Count 5.4 K/mm3 (4.5-10.0)
[2021-04-13 06:56] LABS: Anion Gap 9 mmol/L (8-16); Blood Urea Nitrogen 38 mg/dL (9-20); Calcium 8.6 mg/dL (8.4-10.2); Carbon Dioxide 22 mmol/L (22-30); Chloride 116 mmol/L (98-107); Estimated CRCL calculation 42 ml/min; Estimated Glomerular Filt Rate 58; Glucose 200 mg/dL (65-110); Potassium 3.4 mmol/L (3.4-5.0); Sodium 147 mmol/L (137-145)
[2021-04-13 08:00] VITALS: BP 152/73; PULSE 86; RESP 18; TEMP 36.8; O2SAT 98
[2021-04-13] MEDS: levETIRAcetam 500 MG TABLET PO ×2 (08:08→17:29)
[2021-04-13 08:23] LABS: Glucose Point of Care 161 mg/dl (65-105)
--- NOTE | 2021-04-13 11:10 | PM.IMPN ---
Progress Note: A&P Assessment and Plan (1) Gross hematuria: Code(s): R31.0 - Gross hematuria Status: Acute Assessment and Plan: Patient has a history of neurogenic bladder and has a chronic Dupree catheter in place and follows up with Urology, Dr. Worthington for monthly catheter changes. Patient's noticed decreased urine output to his Dupree catheter on Sunday and abdominal distension on Sunday but the patient refused to come to the emergency room. He had then fallen and could not get up so they sent him to the emergency room for further evaluation. Urology evaluated the patient in found to have gross hematuria and irrigated small clots from his bladder. Pelvic ultrasound confirm there were no clots present. Believe hematuria is from Dupree catheter trauma. Urology recommended continuing IV Rocephin for UTI and tailor antibiotics based on culture results. At this time a urine is normal yellow in color, no signs of clots or hematuria. Continue monitoring. Appreciate urology is input. (2) UTI (urinary tract infection) due to urinary indwelling Dupree catheter: Qualifiers: Encounter type: initial encounter Indwelling urinary catheter type: indwelling urethral catheter Qualified Code(s): T83.511A - Infection and inflammatory reaction due to indwelling urethral catheter, initial encounter; N39.0 - Urinary tract infection, site not specified Code(s): T83.511A - Infection and inflammatory reaction due to indwelling urethral catheter, initial encounter; N39.0 - Urinary tract infection, site not specified Status: Acute Assessment and Plan: Patient's urinalysis was very abnormal with 3+ leuk, greater than 75 WBCs, and turbid color in nature. Urine culture growing Gram negative Bacilli and blood cultures are negative to date currently Continue with ceftriaxone. D/c IV fluids Continue monitoring urine culture results. (3) Neurogenic bladder: Code(s): N31.9 - Neuromuscular dysfunction of bladder, unspecified Status: Chronic Assessment and Plan: Keep Dupree catheter in place at this time. Will follow up with Urology after discharge. Will need Dupree changed every month. (4) DM2 (diabetes mellitus, type 2): Code(s): E11.9 - Type 2 diabetes mellitus without complications Status: Chronic Assessment and Plan: Hemoglobin A1c is 6.4%. Continue Accu-Cheks AC and HS. Sliding scale insulin. Hypoglycemic orders in place. Substitute long-acting insulin with Lantus. (5) Seizure disorder: Code(s): G40.909 - Epilepsy, unspecified, not intractable, without status epilepticus Status: Chronic Assessment and Plan: Resume Keppra (6) Acute kidney injury: Code(s): N17.9 - Acute kidney failure, unspecified Status: Acute Assessment and Plan: Creatinine on arrival was 2.9 due to urinary retention and UTI. Dupree catheter showing normal urine at this time. IV antibiotics started. IV fluids continued with improvement of creatinine 1.2 today. Will D/c IV fluids at this time. Recheck labs in the morning. (7) Anemia: Code(s): D64.9 - Anemia, unspecified Status: Acute Assessment and Plan: Normocytic anemia. H&H stable. reports a history of hematomacrosis Will recheck in the morning. No more hematuria at this time. Time Spent With Patient Time with patient: 25 - 35 minutes Subjective Date/time seen: 04/13/21 11:10 Interval history: Date of service 04/13/2021: Patient is doing much better today and is A&O times 4. Altered mental status yesterday most likely due to urinary t
[2021-04-13 11:54] LABS: Glucose Point of Care 185 mg/dl (65-105)
[2021-04-13 12:00] VITALS: BP 160/67; PULSE 80; RESP 18; TEMP 36.7; O2SAT 99
--- NOTE | 2021-04-13 13:27 | WPDUROPN2 ---
Progress Note: A&P Assessment and Plan (1) Neurogenic bladder: Code(s): N31.9 - Neuromuscular dysfunction of bladder, unspecified Status: Chronic Assessment and Plan: Continue monthly catheter changes at the [place], starting on 05/11/2021. (2) Acute kidney injury: Code(s): N17.9 - Acute kidney failure, unspecified Status: Acute Assessment and Plan: Resolving, creatinine at 1.20 from 1.70. (3) UTI (urinary tract infection) due to urinary indwelling Benjamin catheter: Qualifiers: Encounter type: initial encounter Indwelling urinary catheter type: indwelling urethral catheter Qualified Code(s): T83.511A - Infection and inflammatory reaction due to indwelling urethral catheter, initial encounter; N39.0 - Urinary tract infection, site not specified Code(s): T83.511A - Infection and inflammatory reaction due to indwelling urethral catheter, initial encounter; N39.0 - Urinary tract infection, site not specified Status: Acute Assessment and Plan: Culture grew Gram Negative Bacilli, discharge to SNF with culture appropriate antibiotics based on sensitivity. No further evaluation needed at this time, ok to discharge with benjamin at any time. Subjective Subjective Date/Time Seen: 04/13/21 13:27 Patient is s/p catheter irrigation and clot removal at the bedside in the ER on Sunday after it got dislodged. He has had intermittent irrigations since at the bedside, but his urine is clear yellow today, without clots. He is sitting up in bed and doing well. Planning to be discharged to a SNF. Review of Systems Review of Systems: ROS unobtainable: Yes unobtainable due to mental status Exam Resp: Effort & Inspection: normal respiratory effort Cardio: Rate: regular rate GI: GI Palp: Yes Soft to palpation and No Tenderness to palpation present (GI) : General: Yes no CVA tenderness Urinary Catheter: Urinary Catheter: patent and draining and urine clear Extrem: General: no edema Objective Data Vital Signs Vital Signs: Vital Signs - 24 hr 04/12/21 16:00 04/12/21 20:00 04/13/21 00:00 Temperature 98.4 F 98.5 F 98.1 F Pulse Rate 84 84 52 L Respiratory Rate 18 18 18 Blood Pressure 146/62 H 165/69 H 142/77 H Pulse Oximetry 100 97 90 04/13/21 04:00 04/13/21 08:00 04/13/21 12:00 Temperature 97 F L 98.3 F 98.1 F Pulse Rate 78 86 80 Respiratory Rate 20 18 18 Blood Pressure 163/58 H 152/73 H 160/67 H Pulse Oximetry 98 98 99 Intake/Output Intake/Output: Intake & Output 04/10/21 04/11/21 04/12/21 04/13/21 23:59 23:59 23:59 23:59 Intake Total 2050 2350 720 Output Total 1930 7044 Balance 7945 -9892 -184 Meds/Results Medications: Active Medications Generic Name Dose Route Start Last Admin Trade Name Freq PRN Reason Stop Dose Admin Dextrose 12.5 gm 04/11/21 23:43 Dextrose 50% 25 Gm/50 Ml Syringe IV PUSH PRN PRN Hypoglycemia Protocol Glucagon 1 mg 04/11/21 23:43 Glucagon For Inj 1 Mg Vial IM PRN PRN Hypoglycemia Protocol Glucose 15 gm 04/11/21 23:43 Glucose Oral Gel 15 Gm Of Glucse In 37.5 Gm Tube PO PRN PRN Hypoglycemia Protocol Hydralazine HCl 10 mg 04/12/21 00:00 Hydralazine Hcl 20 Mg/Ml Vial IV PUSH Q8H PRN Blood Pressure - High Dextrose 1,000 mls @ 100 mls/hr 04/11/21 23:43 Dextrose 5% 1,000 Ml IVPB PRN PRN Hypoglycemia Protocol Ceftriaxone Sodium/Dextrose 1 gm in 50 mls @ 100 mls/hr 04/12/21 12:00 04/13/21 12:40 Rocephin 1 Gm/D5w 50 Ml IVPB Infused DAILY@1200 [facility] Infusion Insulin Aspart 2 - 5 units 04/12/21 08:00 04/13/21 11:53 Insulin Aspart (*Bkc) 100 Units/Ml SUB-Q Not Given TIDWM [facility] Protocol Insulin Glargine 16 units 04/12/21 21:00 04/12/21 20:21 Insulin Glargine (*Bkc) 100 Units/Ml SUB-Q 05/12/21 20:59 16 units HS CLEMENTE Administration Levetiracetam 500 mg 04/12/21 09:00 04/13/21 08:08 Levet
[2021-04-13 16:00] VITALS: BP 165/71; PULSE 79; RESP 18; TEMP 37.1; O2SAT 100
[2021-04-13 17:15] LABS: Glucose Point of Care 234 mg/dl (65-105)
[2021-04-13] MEDS: INSULIN ASPART (*BKC) 100 UNITS/ML SUB-Q (17:25)
[2021-04-13 20:00] VITALS: BP 171/71; PULSE 70; RESP 22; TEMP 36.3; O2SAT 98
[2021-04-13] MEDS: INSULIN GLARGINE (*BKC) 100 UNITS/ML 16 UNITS SUB-Q (21:03)
[2021-04-13 22:21] LABS: Glucose Point of Care 237 mg/dl (65-105)
[2021-04-14] VITALS (7 sets, daily range): BP systolic 149–174; BP diastolic 66–79; PULSE 71–81; RESP 16–22; TEMP 36.1–37.3; O2SAT 96–100
[2021-04-14 05:42] LABS: Basophils Percent Auto 0.4 % (0.2-1.2); Eosinophils Absolute Auto 0.1 K/mm3 (0-0.3); Eosinophils Percent Auto 1.5 % (0-4.4); Hematocrit 30.3 % (42.0-52.0); Hemoglobin 9.9 g/dL (14.0-18.0); Immature Granulocyte Absolute 0.04 K/mm3 (0.00-0.031); Immature Granulocyte Percent A 0.8 % (0-0.5); Lymphocytes Absolute Auto 0.57 K/mm3 (0.9-3.2); Lymphocytes Percent Auto 11.9 % (18.3-44.2); Mean Corpuscular HGB Conc 32.7 g/dl (32-36); Mean Corpuscular Hemoglobin 31.5 pg (26-34); Mean Corpuscular Volume 96.5 fl (80-100); Mean Platelet Volume 8.9 fl (7.4-10.4); Monocytes Absolute Auto 0.4 K/mm3 (0.1-0.6); Neutrophils Absolute Auto 3.7 K/mm3 (1.3-6.7); Neutrophils Percent Auto 76.4 % (45.5-73.1); Platelet Count Result 154 k/mm3 (150-375); Red Blood Count 3.14 M/mm3 (4.6-6.20); Red Cell Distribution Width 12.4 % (11.5-14.5); White Blood Count 4.8 K/mm3 (4.5-10.0)
[2021-04-14 06:23] LABS: Anion Gap 7 mmol/L (8-16); Blood Urea Nitrogen 28 mg/dL (9-20); CRP 15.3 mg/dL (<1.0); Calcium 8.5 mg/dL (8.4-10.2); Carbon Dioxide 26 mmol/L (22-30); Chloride 108 mmol/L (98-107); Estimated CRCL calculation 42 ml/min; Estimated Glomerular Filt Rate 58; Glucose 153 mg/dL (65-110); Potassium 3.4 mmol/L (3.4-5.0); Sodium 141 mmol/L (137-145)
[2021-04-14 07:53] LABS: Glucose Point of Care 138 mg/dl (65-105)
[2021-04-14] MEDS: POTASSIUM CHLORIDE 20 MEQ TABLET 40 MEQ PO (08:22)
[2021-04-14] MEDS: levETIRAcetam 500 MG TABLET PO ×2 (08:23→16:27)
[2021-04-14 11:51] LABS: Glucose Point of Care 240 mg/dl (65-105)
[2021-04-14] MEDS: INSULIN ASPART (*BKC) 100 UNITS/ML SUB-Q ×2 (12:47→16:25)
--- NOTE | 2021-04-14 14:05 | PM.IMPN ---
Progress Note: A&P Assessment and Plan (1) Gross hematuria: Code(s): R31.0 - Gross hematuria Status: Acute Assessment and Plan: Patient has a history of neurogenic bladder and has a chronic Benjamin catheter in place and follows up with Urology, Dr. Worthington for monthly catheter changes. Patient's noticed decreased urine output to his Benjamin catheter on Sunday and abdominal distension on Sunday but the patient refused to come to the emergency room. He had then fallen and could not get up so they sent him to the emergency room for further evaluation. Urology evaluated the patient in found to have gross hematuria and irrigated small clots from his bladder. Pelvic ultrasound confirm there were no clots present. Believe hematuria is from Benjamin catheter trauma. Urology recommended following up in the office in 3 weeks for benjamin catheter change At this time a urine is normal yellow in color, no signs of clots or hematuria. Continue monitoring. Appreciate urology is input. (2) UTI (urinary tract infection) due to urinary indwelling Benjamin catheter: Qualifiers: Encounter type: initial encounter Indwelling urinary catheter type: indwelling urethral catheter Qualified Code(s): T83.511A - Infection and inflammatory reaction due to indwelling urethral catheter, initial encounter; N39.0 - Urinary tract infection, site not specified Code(s): T83.511A - Infection and inflammatory reaction due to indwelling urethral catheter, initial encounter; N39.0 - Urinary tract infection, site not specified Status: Acute Assessment and Plan: Patient's urinalysis was very abnormal with 3+ leuk, greater than 75 WBCs, and turbid color in nature. Urine culture growing Providencia rettgeri with sensitivities to Ceftriaxone. Will continue at this time and switch to Cefdinir upon discharge Continue with ceftriaxone. Continue monitoring urine culture results. (3) Neurogenic bladder: Code(s): N31.9 - Neuromuscular dysfunction of bladder, unspecified Status: Chronic Assessment and Plan: Keep Benjamin catheter in place at this time. Will follow up with Urology after discharge. Will need Benjamin changed every month. (4) DM2 (diabetes mellitus, type 2): Code(s): E11.9 - Type 2 diabetes mellitus without complications Status: Chronic Assessment and Plan: Hemoglobin A1c is 6.4%. Continue Accu-Cheks AC and HS. Sliding scale insulin. Hypoglycemic orders in place. Substitute long-acting insulin with Lantus. (5) Seizure disorder: Code(s): G40.909 - Epilepsy, unspecified, not intractable, without status epilepticus Status: Chronic Assessment and Plan: Resume Keppra (6) Acute kidney injury: Code(s): N17.9 - Acute kidney failure, unspecified Status: Acute Assessment and Plan: Creatinine on arrival was 2.9 due to urinary retention and UTI. Benjamin catheter showing normal urine at this time. IV antibiotics started. IV fluids continued with improvement of creatinine 1.2 today. Stable. Will check BMP in 1 week after discharge. Recheck labs in the morning. (7) Anemia: Code(s): D64.9 - Anemia, unspecified Status: Acute Assessment and Plan: Normocytic anemia. H&H stable. reports a history of hematomacrosis Will recheck in the morning. No more hematuria at this time. Subjective Date/time seen: 04/14/21 14:05 Interval history: Date of service 04/14/2021: Patient is doing much better today and is A&O times 4. Altered mental status yesterday most likely due to urinary tract infection. Currentl
[2021-04-14 16:25] LABS: Glucose Point of Care 202 mg/dl (65-105)
[2021-04-14] MEDS: INSULIN GLARGINE (*BKC) 100 UNITS/ML 16 UNITS SUB-Q (20:00)
[2021-04-14 21:58] LABS: Glucose Point of Care 256 mg/dl (65-105)
[2021-04-15] VITALS: BP 175/86; PULSE 72; RESP 18; TEMP 36.7; O2SAT 100
[2021-04-15 04:00] VITALS: BP 154/72; PULSE 76; RESP 20; TEMP 36.8; O2SAT 97
[2021-04-15 07:01] LABS: Anion Gap 5 mmol/L (8-16); Blood Urea Nitrogen 22 mg/dL (9-20); CRP 7.5 mg/dL (<1.0); Calcium 8.2 mg/dL (8.4-10.2); Carbon Dioxide 28 mmol/L (22-30); Chloride 100 mmol/L (98-107); Estimated CRCL calculation 55 ml/min; Estimated Glomerular Filt Rate > 60; Glucose 156 mg/dL (65-110); Magnesium 1.7 mg/dL (1.6-2.3); Potassium 3.4 mmol/L (3.4-5.0); Sodium 133 mmol/L (137-145)
[2021-04-15 07:05] LABS: Myoglobin, Urine 237 mcg/L (<28)
[2021-04-15 07:52] LABS: Glucose Point of Care 150 mg/dl (65-105)
[2021-04-15 08:00] VITALS: BP 164/68; PULSE 71; RESP 16; TEMP 36.7; O2SAT 97
[2021-04-15] MEDS: POTASSIUM CHLORIDE 20 MEQ TABLET 40 MEQ PO (08:40)
[2021-04-15] MEDS: MAGNESIUM SULFATE 3GM/D5W100ML 3 GM/100 ML BAG IVPB (08:40)
[2021-04-15] MEDS: levETIRAcetam 500 MG TABLET PO (08:40)
[2021-04-15 11:42] LABS: Glucose Point of Care 222 mg/dl (65-105)
--- NOTE | 2021-04-15 12:04 | PM.DS ---
DS: Admitting Diagnosis Discharge Date 04/15/21 Admitting Diagnosis Fall/weakness DS: Discharge Diagnosis Discharge Diagnosis (1) Gross hematuria: Code(s): R31.0 - Gross hematuria Status: Acute Assessment and Plan: The patient is an 80 year old man with a history of Parkinson's Disease, noticed a decrease of outflow of urine to his Benjamin catheter Sunday04/09/21 and wanted to patient to go to the ER but he refused and wanted to see his Urologist Sunday. Then around 11 pm Sunday, he fell on the ground and the could not get him up and EMS was called for further evaluation. Information given by the , Karmen, who states he has not had any weakness, fatigue, fevers, chills or any issues other than decreased urine output. reports occasional dementia and switching subjections , but otherwise he is very talkative and social . He does not use a cane or walker when ambulating. Initial vitals showed stable blood pressure 133/81, heart rate 97 beats per minute, afebrile and normal oxygenation on room air. Initial labs showed normal white blood cell count, normocytic anemia with a hemoglobin of 10, hematocrit 32%. ALANIS with a creatinine of 2.9, BUN 74 most likely due to urinary retention from Benjamin catheter. Normal lactic acid. Total CK 204 since he was on the ground overnight. Urinalysis showed turbid urine 3+ leukocyte esterase, greater than 75 WBCs. But the patient was admitted into the hospital with metabolic encephalopathy secondary to urinary tract infection. Patient was started on IV antibiotics and admitted into the hospital. Patient has a history of neurogenic bladder and has a chronic Benjamin catheter in place and follows up with Urology, Dr. Worthington for monthly catheter changes. Urology evaluated the patient in found to have gross hematuria and irrigated small clots from his bladder. Pelvic ultrasound confirm there were no clots present. Believe hematuria is from Benjamin catheter trauma. Urology recommended following up in the office in 3 weeks for benjamin catheter change At this time a urine is normal yellow in color, no signs of clots or hematuria. Patient's confusion is improved with IV antibiotics. Urine culture growing Providencia rettgeri with sensitivities to Ceftriaxone. Will continue at this time and switch to Cefdinir upon discharge The patient's is adamant that the patient returned home with her. She does not want him going to an SNF facility and does not want home health therapy. Patient's has been educated of the risks of him falling again instilled would like him to be discharged home. When EMS came to the patient's house they found he was living in hoarding conditions. They reported this to Adult protective Services who was looking into the case. Supposedly the patient has been reported multiple times in the past because of the living conditions. There is a new clinical case manager who will be following up with the patient and his upon discharge. The patient is otherwise in stable condition. Stable for discharge to follow-up with primary care provider. Return to ER warnings given. (2) UTI (urinary tract infection) due to urinary indwelling Benjamin catheter: Qualifiers: Encounter type: initial encounter Indwelling urinary catheter type: indwelling urethral catheter Qualified Code(s): T83.511A - Infection and inflammatory reaction due to indwelling urethral catheter, initial encounter; N39.0 - Urinary tract infection, site not specified Code(s): T83.511A - Infection and inflammatory reaction due to indwelling urethral catheter, initial encounter; N39.0 - Urinary tract infection, site not specified Status: Acute Assessment and Plan: (3) Neurogenic bladder: Code(s): N31.9 - Neuromuscular dysfunction of bladder, unspecified Status: Chronic
[2021-04-15 12:30] VITALS: BP 164/68; PULSE 82; RESP 16; TEMP 37; O2SAT 97
[2021-04-15] MEDS: INSULIN ASPART (*BKC) 100 UNITS/ML SUB-Q (12:43)
== END 2021-04-15 14:52 | disposition home or self-care (01) | DRG 698 ==
LOC: ANHED 13:52 → ANH2MED 20:07
PROVIDERS: Nurse Practitioner; Physician Assistant; Admitting Provider Family Medicine; Emergency Provider Emergency Medicine; Visit Provider Physician Assistant
DX: T83.511A Infection and inflammatory reaction due to indwelling urethral catheter, initial encounter (principal); G93.41 Metabolic encephalopathy; N17.8 Other acute kidney failure; S37.39XA Other injury of urethra, initial encounter; S37.22XA Contusion of bladder, initial encounter; T83.021A Displacement of indwelling urethral catheter, initial encounter; X58.XXXA Exposure to other specified factors, initial encounter; B96.89 Other specified bacterial agents as the cause of diseases classified elsewhere; N39.0 Urinary tract infection, site not specified; R31.0 Gross hematuria; N31.9 Neuromuscular dysfunction of bladder, unspecified; R33.9 Retention of urine, unspecified; E86.0 Dehydration; G20 Parkinson's disease; G40.909 Epilepsy, unspecified, not intractable, without status epilepticus; E11.9 Type 2 diabetes mellitus without complications; D64.9 Anemia, unspecified; W19.XXXA Unspecified fall, initial encounter; Z86.73 Personal history of transient ischemic attack (TIA), and cerebral infarction without residual deficits
CPT/HCPCS: 36415; 70450; 76857; 80048; 80053; 81001; 82550; 82948; 83036; 83605; 83735; 83874; 84443; 85014; 85018; 85025; 86140; 87040; 87077; 87086; 87088; 87186; 96361; 96374; 97110; 97116; 97162; 97166; 97530; 97535; 99285; A9270; G0378; J0696; J1815; J3475; J7030

== ENCOUNTER 2021-04-25 20:40 | Emergency (ER) | payer MEDICARE, BC, SELFPAY ==
[2021-04-25 21:20] VITALS: BP 151/83; PULSE 93; RESP 18; TEMP 36.5; O2SAT 100
--- NOTE | 2021-04-25 21:56 | ED.GENADULT ---
HPI - General Adult General Chief complaint: Urogenital-Male Stated complaint: urinary retention Time Seen by Provider: 04/25/21 21:52 Source: RN notes reviewed History of Present Illness HPI narrative: Patient presents emergency department from home for Dupree catheter malfunction. Patient states he has a chronic indwelling Dupree catheter and is followed by Dr. Roche. States he has had minimal output from the catheter today patient does note some mild pain in his lower abdomen with the symptoms he denies any fevers or chills nausea or vomiting or any other symptoms Related Data Home Medications Medication Instructions Recorded Confirmed Raysa SoloStar U-300 Insulin 20 unit SUBCUT HS 08/18/20 04/11/21 insulin lispro [Humalog KwikPen 4 sliding scale dose SUBCUT TID 04/11/21 04/11/21 Insulin] levetiracetam [Keppra] 500 mg PO BID 04/11/21 04/11/21 Allergies Allergy/AdvReac Type Severity Reaction Status Date / Time No Known Allergies Allergy Verified 04/25/21 21:56 Review of Systems Review of Systems: Gen.: Denies fevers or chills Respiratory: Denies shortness of breath CV: Denies chest pain GI: Reports lower abdominal pain. Denies nausea, emesis or diarrhea see HPI Musculoskeletal: Denies back pain or muscle pain Neuro: Denies numbness, tingling, weakness or focal weakness Skin: Denies rash Except as documented, all other systems reviewed and negative PMFSH Past Medical History Medical History DM2 (diabetes mellitus, type 2) History of CVA (cerebrovascular accident) History of meningitis HTN (hypertension), benign Neurogenic bladder Seizure disorder Surgical History Surgical History Surgical history unknown Family History Family History Other Unknown family medical history Social History Social History Social History: The patient is and lives with his . Unknown if patient ever smoke or drink. Patient is unable to answer questions and his is a poor historian Smoking status: Unknown if ever smoked Alcohol intake: never Substance use: never Gender identity (if verbalized by the patient): Male Spiritual care concerns: No Exam Narrative: APPEARANCE: No acute distress, nontoxic, resting in bed EYES: EOMI HEENT: Normocephalic, atraumatic, OMM RESPIRATORY: No respiratory distress Clear to auscultation bilaterally with no rhonchi wheezing or rales. CARDIOVASCULAR: Regular rate and rhythm without murmurs rubs or gallops. ABDOMINAL: Soft, distention lower abdomen firm to palpation in the lower abdomen mild tenderness no rebound or guarding : Dupree catheter in place with no output MUSCULOSKELETAl: Moves all extremities. NEURO: Awake and alert. Following commands, speech normal, no focal deficits SKIN:: Warm, dry. No rashes lesions or abrasions PSYCHIATRIC: Normal affect/mood, Course Course Emergency Course: Reviewed old record recent inpatient admission Dupree catheter replaced with good urine output Discussed with Dr. Roche presentation work-up agrees with discharge at this time recommends no antibiotics at this time with urine culture sent Discussed with patient results of workup and diagnosis. Discussed need for follow-up with primary care, proper use of medication, and reasons to return to the emergency department. Patient understands and agrees to current treatment plan Vital Signs Vital signs: Vital Signs Temperature 97.7 F 04/25/21 21:20 Pulse Rate 93 04/25/21 21:20 Respiratory Rate 18 04/25/21 21:20 Blood Pressure 151/83 H 04/25/21 21:20 Pulse Oximetry 100 04/25/21 21:20 Temperature 97.7 F 04/25/21 21:20 Pulse Rate 93 04/25/21 21:20 Respiratory Rate 18 04/25/21 21:20 Blood Pressure 151/83 H 04/25/21
[2021-04-25 22:24] LABS: Basophils Absolute Auto 0.1 K/mm3 (0.0-0.1); Basophils Percent Auto 1.1 % (0.2-1.2); Eosinophils Absolute Auto 0.1 K/mm3 (0-0.3); Eosinophils Percent Auto 2.3 % (0-4.4); Hematocrit 30.6 % (42.0-52.0); Hemoglobin 10.2 g/dL (14.0-18.0); Immature Granulocyte Absolute 0.03 K/mm3 (0.00-0.031); Immature Granulocyte Percent A 0.5 % (0-0.5); Lymphocytes Absolute Auto 0.98 K/mm3 (0.9-3.2); Lymphocytes Percent Auto 15.9 % (18.3-44.2); Mean Corpuscular HGB Conc 33.3 g/dl (32-36); Mean Corpuscular Hemoglobin 31.7 pg (26-34); Mean Platelet Volume 8.2 fl (7.4-10.4); Monocytes Absolute Auto 0.6 K/mm3 (0.1-0.6); Monocytes Percent Auto 9.4 % (2.6-8.5); Neutrophils Absolute Auto 4.4 K/mm3 (1.3-6.7); Neutrophils Percent Auto 70.8 % (45.5-73.1); Platelet Count Result 380 k/mm3 (150-375); Red Blood Count 3.22 M/mm3 (4.6-6.20); Red Cell Distribution Width 12.4 % (11.5-14.5); White Blood Count 6.2 K/mm3 (4.5-10.0)
[2021-04-25 22:29] LABS: Add Urine Microscopic? YES; Appearance Urine Clear (Clear); Bilirubin Urine Negative (Negative); Blood Urine Negative (Negative); Color Urine Yellow (Yellow); Glucose Urine UA 3+ mg/dL (Negative); Ketones Urine Negative (Negative); Leukocyte Esterase Ur Trace LEU/UL (Negative); Nitrate Urine Negative (Negative); Protein Urine 1+ mg/dL (Negative); Specific Grav Ur 1.012 (1.001-1.035); Urobilinogen Urine Negative mg/dL (<2.0)
[2021-04-25 22:33] LABS: Anion Gap 7 mmol/L (8-16); Blood Urea Nitrogen 27 mg/dL (9-20); Calcium 9.2 mg/dL (8.4-10.2); Carbon Dioxide 26 mmol/L (22-30); Chloride 100 mmol/L (98-107); Estimated CRCL calculation 53 ml/min; Estimated Glomerular Filt Rate > 60; Glucose 292 mg/dL (65-110); Potassium 4.4 mmol/L (3.4-5.0); Sodium 133 mmol/L (137-145)
[2021-04-25 23:49] VITALS: BP 143/86; PULSE 74; RESP 16; O2SAT 100
== END 2021-04-25 23:43 | disposition home or self-care (01) ==
PROVIDERS: Emergency Provider Emergency Medicine
DX: T83.091A Other mechanical complication of indwelling urethral catheter, initial encounter (principal); R33.9 Retention of urine, unspecified; E11.9 Type 2 diabetes mellitus without complications; I10 Essential (primary) hypertension; G40.909 Epilepsy, unspecified, not intractable, without status epilepticus; Z86.73 Personal history of transient ischemic attack (TIA), and cerebral infarction without residual deficits; Z86.61 Personal history of infections of the central nervous system
CPT/HCPCS: 36415; 80048; 81001; 85025; 87086; 99283

== ENCOUNTER 2021-04-26 21:09 | Emergency (ER) | payer MEDICARE, BC, SELFPAY ==
[2021-04-26 21:20] VITALS: BP 137/78; PULSE 88; RESP 18; TEMP 36.8; O2SAT 100
[2021-04-26 21:58] LABS: Add Urine Microscopic? YES; Appearance Urine Clear (Clear); Bacteria Urine Trace /hpf; Bilirubin Urine Negative (Negative); Blood Urine Negative (Negative); Color Urine Yellow (Yellow); Glucose Urine UA 3+ mg/dL (Negative); Ketones Urine Negative (Negative); Leukocyte Esterase Ur 1+ LEU/UL (Negative); Nitrate Urine Negative (Negative); Protein Urine 2+ mg/dL (Negative); Specific Grav Ur 1.014 (1.001-1.035); Urobilinogen Urine Negative mg/dL (<2.0)
[2021-04-26 23:53] VITALS: BP 171/84; PULSE 69; RESP 17; O2SAT 100
--- NOTE | 2021-04-26 23:59 | PC.NURSE ---
ophthalmic technologist bladder scanned pt per EDP. tech states pt has 55mL in bladder.
--- NOTE | 2021-04-27 00:14 | ED.GENADULT ---
HPI - General Adult General Chief complaint: Urogenital-Male Stated complaint: foul smelling urine, possible UTI Time Seen by Provider: 04/26/21 23:41 History of Present Illness HPI narrative: Patient is a 80-year-old gentleman who presents the emergency department with chief complaint of dysuria. Patient was seen in the emergency department last night after he had some urinary retention has a catheter in place and today noticed that his urine was foul-smelling and cloudy. The patient has had no nausea no vomiting no fever. Related Data Home Medications Medication Instructions Recorded Confirmed Raysa ArcheroStar U-300 Insulin 20 unit SUBCUT HS 08/18/20 04/11/21 insulin lispro [Humalog KwikPen 4 sliding scale dose SUBCUT TID 04/11/21 04/11/21 Insulin] Allergies Allergy/AdvReac Type Severity Reaction Status Date / Time No Known Allergies Allergy Verified 04/25/21 21:56 Review of Systems Review of Systems: A 10 system review of systems was completed on the patient and is negative except for what is stated in the HPI. Nursing and ancillary documentation was reviewed. [facility] Past Medical History Medical History DM2 (diabetes mellitus, type 2) History of CVA (cerebrovascular accident) History of meningitis HTN (hypertension), benign Neurogenic bladder Seizure disorder Surgical History Surgical History Surgical history unknown Family History Family History Other Unknown family medical history Social History Social History Social History: The patient is and lives with his . Unknown if patient ever smoke or drink. Patient is unable to answer questions and his is a poor historian Smoking status: Unknown if ever smoked Alcohol intake: never Substance use: never Gender identity (if verbalized by the patient): Male Spiritual care concerns: No Exam Narrative: GENERAL: Well-appearing, well-nourished, and in no acute distress. HEAD: Normocephalic, atraumatic. EYES: PERRLA and EOMI. ENT: Nares clear, no rhinorrhea or epistaxis. Mucous membranes moist. NECK: Supple. CHEST: Clear to auscultation. No respiratory distress. HEART: Regular rate and rhythm. No murmur heard. Normal peripheral pulses. ABDOMEN: Soft, nontender, nondistended, normal active bowel sounds. EXTREMITIES: Normal range of motion. No edema. SKIN: Warm, dry, no rash. NEURO: No focal deficits. Alert and oriented x3. PSYCH: Normal mood and affect. Course Vital Signs Vital signs: Vital Signs Temperature 36.8 C 04/26/21 21:20 Pulse Rate 88 04/26/21 21:20 Respiratory Rate 18 04/26/21 21:20 Blood Pressure 137/78 04/26/21 21:20 Pulse Oximetry 100 04/26/21 21:20 Temperature 36.8 C 04/26/21 21:20 Pulse Rate 69 04/26/21 23:53 Respiratory Rate 17 04/26/21 23:53 Blood Pressure 171/84 H 04/26/21 23:53 Pulse Oximetry 100 04/26/21 23:53 Medical Decision Making Vital Signs Vital Signs: Vital Signs Temperature 36.8 C 04/26/21 21:20 Pulse Rate 88 04/26/21 21:20 Respiratory Rate 18 04/26/21 21:20 Blood Pressure 137/78 04/26/21 21:20 Pulse Oximetry 100 04/26/21 21:20 Temperature 36.8 C 04/26/21 21:20 Pulse Rate 69 04/26/21 23:53 Respiratory Rate 17 04/26/21 23:53 Blood Pressure 171/84 H 04/26/21 23:53 Pulse Oximetry 100 04/26/21 23:53 Lab Data Labs: Lab Results 04/26/21 Range/Units 21:30 Urine Color Yellow (Yellow) Urine Appearance Clear (Clear) Urine pH 6.0 (5.0-9.0) Ur Specific [place] 1.014 (1.001-1.035) Urine Protein 2+ H (Negative) mg/dL Urine Glucose (UA) 3+ H (Negative) mg/dL Urine Ketones Negative (Negative) mg/dL Ur Blood (Man) Negative (Negative
[2021-04-27] MEDS: cefTRIAXone 1 GM VIAL IM (00:30)
[2021-04-27] MEDS: LIDOCAINE HCL 1% LOCAL INJ 20 ML VIAL (00:31)
[2021-04-27 00:37] VITALS: BP 153/86; PULSE 67; RESP 18; O2SAT 100
--- NOTE | 2021-04-27 01:07 | PC.NURSE ---
gave 2.1 mL of lidocaine to mix w/ the Rocephin, not 20 mL.
== END 2021-04-27 01:00 | disposition home or self-care (01) ==
PROVIDERS: Emergency Medicine; Emergency Provider Emergency Medicine
DX: N39.0 Urinary tract infection, site not specified (principal); E11.9 Type 2 diabetes mellitus without complications; Z86.73 Personal history of transient ischemic attack (TIA), and cerebral infarction without residual deficits; I10 Essential (primary) hypertension; N31.9 Neuromuscular dysfunction of bladder, unspecified; G40.909 Epilepsy, unspecified, not intractable, without status epilepticus; Z79.4 Long term (current) use of insulin
CPT/HCPCS: 81001; 96372; 99283; J0696

== ENCOUNTER 2021-04-29 09:46 | Emergency (ER) | payer MEDICARE, BC, SELFPAY ==
[2021-04-29 09:59] VITALS: BP 140/80; PULSE 92; RESP 18; TEMP 36.8; O2SAT 100
--- NOTE | 2021-04-29 10:18 | PC.NURSE ---
This RN into pts room to look at catheter. PT has alot of catheter tubing coming out of his penis. This RN readjusted tubing and pts catheter started to drain again.
--- NOTE | 2021-04-29 10:37 | ED.MALEGU ---
HPI - Male Genitourinary General Chief complaint: Urogenital-Male Stated complaint: catheter not draining Time Seen by Provider: 04/29/21 10:16 Source: patient and family History of Present Illness HPI Narrative: Patient presents with no drainage from his Dupree catheter. Patient has neurogenic bladder and has had a Dupree catheter in at least since his last admission a couple weeks ago. Patient reports that he emptied the bag last night and this morning there was no urine in the bag and his belly felt full. The no urine was unusual so they came to the ER for evaluation his Dupree catheter is malfunction. Patient reported mild abdominal pain no nausea no vomiting no diarrhea no fevers. Family reports they have appoint with urologist coming up Related Data Home Medications Medication Instructions Recorded Confirmed Raysa ArcheroStar U-300 Insulin 20 unit SUBCUT HS 08/18/20 04/11/21 insulin lispro [Humalog KwikPen 4 sliding scale dose SUBCUT TID 04/11/21 04/11/21 Insulin] Allergies Allergy/AdvReac Type Severity Reaction Status Date / Time No Known Allergies Allergy Verified 04/29/21 10:05 Review of Systems Review of Systems: CONSTITUTIONAL: Denies fever, chills, or sweats. EYES: Denies visual changes, redness, or discharge. ENT: Denies rhinorrhea, congestion, sore throat, or otalgia. CARDIOVASCULAR: Denies chest pain, palpitations, or edema. RESPIRATORY: Denies cough or dyspnea. GASTROINTESTINAL: Denies abdominal pain, nausea, vomiting, or diarrhea. GENITOURINARY: Denies dysuria or hematuria. SKIN: Denies rash or itching. MUSCULOSKELETAL: Denies back pain, joint pain, or myalgia. NEUROLOGIC: Denies headache, numbness, dizziness, or weakness. PSYCHIATRIC: Denies anxiety or depression. All systems reviewed & are unremarkable except as noted in HPI and below PMFSH Past Medical History Medical History DM2 (diabetes mellitus, type 2) History of CVA (cerebrovascular accident) History of meningitis HTN (hypertension), benign Neurogenic bladder Seizure disorder Surgical History Surgical History Surgical history unknown Family History Family History Other Unknown family medical history Social History Social History Social History: The patient is and lives with his . Unknown if patient ever smoke or drink. Patient is unable to answer questions and his is a poor historian Smoking status: Unknown if ever smoked Alcohol intake: never Substance use: never Gender identity (if verbalized by the patient): Male Spiritual care concerns: No Exam Narrative: GENERAL: Well-appearing, well-nourished, and in no acute distress. HEAD: Normocephalic, atraumatic. EYES: PERRLA and EOMI. ENT: Nares clear, no rhinorrhea or epistaxis. Mucous membranes moist. : Large amount of Dupree tubing was outside the urethra ABDOMEN: Soft, nontender, nondistended EXTREMITIES: Normal range of motion. No edema. SKIN: Warm, dry, no rash. NEURO: No focal deficits. Alert and oriented x3. PSYCH: Normal mood and affect. Course Reevaluation(s) Reevaluation #1: RN reinserted the Dupree tubing and a large amount of urine was drained and patient felt improved Date: 04/29/21 Time: 10:40 Vital Signs Vital signs: Vital Signs Temperature 36.8 C 04/29/21 09:59 Pulse Rate 92 04/29/21 09:59 Respiratory Rate 18 04/29/21 09:59 Blood Pressure 140/80 04/29/21 09:59 Pulse Oximetry 100 04/29/21 09:59 Temperature 36.8 C 04/29/21 09:59 Pulse Rate 92 04/29/21 09:59 Respiratory Rate 18 04/29/21 09:59 Blood Pressure 140/80 04/29/21 09:59 Pulse Oximetry 100 04/29/21 09:59 MDM - Male Genitourinary MDM Narrative Medical decision making narrative: H&P as above, vss, pt looks c
== END 2021-04-29 11:19 | disposition home or self-care (01) ==
PROVIDERS: Emergency Provider Emergency Medicine
DX: T83.021A Displacement of indwelling urethral catheter, initial encounter (principal); N31.9 Neuromuscular dysfunction of bladder, unspecified; E11.9 Type 2 diabetes mellitus without complications; I10 Essential (primary) hypertension; G40.909 Epilepsy, unspecified, not intractable, without status epilepticus; Z86.73 Personal history of transient ischemic attack (TIA), and cerebral infarction without residual deficits; Z79.4 Long term (current) use of insulin
CPT/HCPCS: 99281

== ENCOUNTER 2021-05-04 13:31 | Emergency (ER) | payer MEDICARE, BC, SELFPAY ==
--- NOTE | ~2021-05-04 | CT_ITS ---
EXAMINATION: CT brain wo con DATE: 05/04/2021 14:19 INDICATION: Weakness TECHNIQUE: Computed tomography (CT) of the head was performed without intravenous contrast. Sagittal and coronal reconstructions were performed. The mA was adjusted according to patient size. Iterative reconstruction technique was employed. The dose-length product was 605.33 mGy-cm. COMPARISON: head CT dated 04/12/2021 FINDINGS: Small the region of encephalomalacia at the inferior anterior right frontal lobe consistent with field professional og infarct. Additional small infarct at the inferior right cerebellar hemisphere and small old lacun ar infarct in the white matter of the right frontal lobe centrum semiovale. No acute intracranial hem orrhage, acute infarction or abnormal extra axial fluid collection. There is moderate scattered white matter hypoattenuation consistent with chronic small vessel ischemic disease. Symmetric prominence o f the sulci and ventricles consistent with mild age-appropriate diffuse cerebral volume loss. No mass /mass effect. Changes of bilateral intraocular lens replacement. The orbits and mastoid air cells are normal. Mild mucosal thickening in the right sphenoid sinus. Intracranial calcified cerebral atheros clerosis is noted. IMPRESSION: 1. No acute intracranial process. 2. Small old infarcts in the right cerebellar hemisphere and a couple in the right frontal lobe. 3. Age-related changes including mild diffuse volume loss and moderate scattered white matter hypoatt enuation consistent with chronic small vessel ischemic disease. Reviewed, dictated and finalized at location A. IMPRESSION: 1. No acute intracranial process. 2. Small old infarcts in the right cerebellar hemisphere and a couple in the ri ght frontal lobe. 3. Age-related changes including mild diffuse volume loss and moderate scattere d white matter hypoattenuation consistent with chronic small vessel ischemic di sease.
--- NOTE | ~2021-05-04 | XR_ITS ---
XR chest 2V 05/04/2021 14:28 Indication: Weakness Procedure: AP view of the chest Comparison: 08/23/2020 Findings: Heart size normal. No focal air space disease, pulmonary edema, pleural effusion or suspect ed pneumothorax. The lungs are hyperinflated which is consistent with, but not diagnostic of chronic obstructive pulmonary disease. Impression: 1: No acute cardiopulmonary disease. Reviewed, dictated and finalized at location B. Impression: 1: No acute cardiopulmonary disease.
[2021-05-04 13:44] VITALS: BP 162/103; PULSE 86; RESP 18; TEMP 36.8; O2SAT 100
--- NOTE | 2021-05-04 13:48 | ED.AMS ---
HPI - Altered Mental Status General Chief Complaint: Unspecified Stated Complaint: AMS Time Seen by Provider: 05/04/21 13:33 Source: patient and EMS Mode of arrival: EMS Limitations: no limitations History of Present Illness HPI narrative: Patient is an 80-year-old male with history of hypertension, Type II DM, Parkinson's disease, presenting for evaluation of fatigue. Patient states he did not sleep well overnight and felt slightly fatigued, thus after speaking with his primary care provider, wanted him to be evaluated today. At the time of presentation, patient denies any acute pain. No focal weakness or numbness. No chest pain, shortness of breath, fever or chills. No abdominal pain, nausea or vomiting. Patient is alert and oriented to person, place, and to time. No confusion currently. Patient denies any diarrhea, states he has been hydrated at baseline. Denies any recent medication changes. Urine culture from 04/25 no growth to date. Patient had been prescribed Augmentin at following ER visit. Patient's feels augmentin is helping. She states that her was aggressive and agitated last night but that is resolved this morning. Dr. Mcclain is their neurologist. Related Data Home Medications Medication Instructions Recorded Confirmed Raysa SoloStar U-300 Insulin 20 unit SUBCUT HS 08/18/20 04/11/21 insulin lispro [Humalog KwikPen 4 sliding scale dose SUBCUT TID 04/11/21 04/11/21 Insulin] Allergies Allergy/AdvReac Type Severity Reaction Status Date / Time No Known Allergies Allergy Verified 05/04/21 13:50 Review of Systems Review of Systems: CONSTITUTIONAL: Denies fever, chills, or sweats. Reports fatigue. EYES: Denies visual changes, redness, or discharge. ENT: Denies rhinorrhea, congestion, sore throat, or otalgia. CARDIOVASCULAR: Denies chest pain, palpitations, or edema. RESPIRATORY: Denies cough or dyspnea. GASTROINTESTINAL: Denies abdominal pain, nausea, vomiting, or diarrhea. GENITOURINARY: Denies dysuria or hematuria. SKIN: Denies rash or itching. MUSCULOSKELETAL: Denies back pain, joint pain, or myalgia. NEUROLOGIC: Denies headache, numbness, or weakness. [facility] Past Medical History Medical History DM2 (diabetes mellitus, type 2) History of CVA (cerebrovascular accident) History of meningitis HTN (hypertension), benign Neurogenic bladder Seizure disorder Surgical History Surgical History Surgical history unknown Family History Family History Other Unknown family medical history Social History Social History Social History: The patient is and lives with his . Unknown if patient ever smoke or drink. Patient is unable to answer questions and his is a poor historian Smoking status: Unknown if ever smoked Alcohol intake: never Substance use: never Gender identity (if verbalized by the patient): Male Spiritual care concerns: No Exam Narrative: GENERAL: Awake, alert, conversant HEAD: Normocephalic, atraumatic. EYES: PERRLA and EOMI. ENT: Nares clear, no rhinorrhea or epistaxis. Mucous membranes moist. NECK: Supple. CHEST: No respiratory distress, breathing even and non labored HEART: Regular rate, sinus rhythm ABDOMEN:Non distended, non tender EXTREMITIES: Normal range of motion. No edema. SKIN: Warm, dry, no rash. NEURO:No focal deficits. Alert and oriented x3 Course Vital Signs Vital signs: Vital Signs Temperature 36.8 C 05/04/21 13:44 Pulse Rate 86 05/04/21 13:44 Respiratory Rate 18 05/04/21 13:44 Blood Pressure 162/103 H 05/04/21 13:44 Pulse Oximetry 100 05/04/21 13:44 Temperature 36.8 C 05/04/21 13:44 Pulse Rate 86 05/04/21 13:44 Respiratory Rate 18 05/04/21 13:44 Blood Pre
--- NOTE | 2021-05-04 14:05 | ECG_ITS ---
Measurements Intervals [place] Rate: 71 P: 24 AL: 145 QRS: -54 QRSD: 101 T: 50 QT: 381 QTc: 416 Interpretive Statements SINUS RHYTHM ATRIAL PREMATURE COMPLEX LEFT ANTERIOR FASCICULAR BLOCK CANNOT RULE OUT SEPTAL INFARCT, AGE INDETERMINATE ABNORMAL ECG Electronically Signed On 05-04-2021 14:48:48 CDT by Boyd Kennedy D.O.
--- NOTE | 2021-05-04 14:24 | PC.NURSE ---
PT in CT scan
[2021-05-04] MEDS: SODIUM CHLORIDE 0.9% IV 1,000 ML 999 ML IV CONT (14:30)
[2021-05-04 14:45] LABS: Eosinophils Absolute Auto 0.2 K/mm3 (0-0.3); Eosinophils Percent Auto 5.7 % (0-4.4); Hematocrit 33.9 % (42.0-52.0); Hemoglobin 11.6 g/dL (14.0-18.0); Immature Granulocyte Absolute 0.01 K/mm3 (0.00-0.031); Immature Granulocyte Percent A 0.2 % (0-0.5); Lymphocytes Absolute Auto 1.01 K/mm3 (0.9-3.2); Mean Corpuscular HGB Conc 34.2 g/dl (32-36); Mean Corpuscular Hemoglobin 31.9 pg (26-34); Mean Corpuscular Volume 93.1 fl (80-100); Mean Platelet Volume 8.5 fl (7.4-10.4); Monocytes Absolute Auto 0.4 K/mm3 (0.1-0.6); Monocytes Percent Auto 8.6 % (2.6-8.5); Neutrophils Absolute Auto 2.5 K/mm3 (1.3-6.7); Neutrophils Percent Auto 60.5 % (45.5-73.1); Platelet Count Result 252 k/mm3 (150-375); Red Blood Count 3.64 M/mm3 (4.6-6.20); Red Cell Distribution Width 13.1 % (11.5-14.5); White Blood Count 4.2 K/mm3 (4.5-10.0)
[2021-05-04 14:49] LABS: Add Urine Microscopic? YES; Appearance Urine Clear (Clear); Bacteria Urine Trace /hpf; Bilirubin Urine Negative (Negative); Blood Urine 1+ (Negative); Color Urine Yellow (Yellow); Glucose Urine UA 1+ mg/dL (Negative); Ketones Urine Negative (Negative); Leukocyte Esterase Ur 3+ LEU/UL (Negative); Mucus Urine Rare /lpf; Nitrate Urine Negative (Negative); Protein Urine 2+ mg/dL (Negative); Specific Grav Ur 1.014 (1.001-1.035); Urobilinogen Urine Negative mg/dL (<2.0); WBC Urine 16-20 /hpf
[2021-05-04 15:02] LABS: Alanine Aminotransferase 10 U/L (4-50); Albumin Level 3.9 g/dL (3.5-5.1); Alkaline Phosphatase 93 U/L (38-126); Anion Gap 7 mmol/L (8-16); Aspartate Amino Transferase 15 U/L (17-59); Bilirubin,Total 0.4 mg/dL (0.2-1.3); Blood Urea Nitrogen 20 mg/dL (9-20); Calcium 9.5 mg/dL (8.4-10.2); Carbon Dioxide 28 mmol/L (22-30); Chloride 103 mmol/L (98-107); Estimated CRCL calculation 68 ml/min; Estimated Glomerular Filt Rate > 60; Glucose 191 mg/dL (65-110); Potassium 4.2 mmol/L (3.4-5.0); Sodium 138 mmol/L (137-145)
[2021-05-04 15:14] LABS: Troponin I < 0.012 ng/mL (0.000-0.034)
[2021-05-04 17:29] LABS: Amphetamine Screen Urine Negative (Negative); Barbiturate Screen Urine Negative (Negative); Benzodiazepines Screen Urine Negative (Negative); Cannabinoid Screen Urine Negative (Negative); Cocaine Screen Urine Negative (Negative); Methadone Screen Urine Negative (Negative); Opiate Screen Urine Negative (Negative); Phencyclidine Screen Urine Negative (Negative)
== END 2021-05-04 17:56 | disposition home or self-care (01) ==
PROVIDERS: Emergency Provider Emergency Medicine
DX: R41.82 Altered mental status, unspecified (principal); E11.9 Type 2 diabetes mellitus without complications; I10 Essential (primary) hypertension; G40.909 Epilepsy, unspecified, not intractable, without status epilepticus; Z79.4 Long term (current) use of insulin
CPT/HCPCS: 36415; 70450; 71046; 80053; 80307; 81001; 84443; 84484; 85025; 87086; 93005; 96360; 99284; J7030

== ENCOUNTER 2021-05-08 14:43 | Emergency (ER) | payer MEDICARE, BC, SELFPAY ==
[2021-05-08 15:30] VITALS: BP 136/88; PULSE 70; RESP 16; O2SAT 99
--- NOTE | 2021-05-08 16:00 | PC.NURSE ---
JAYMIE Calderon, informed me to assess benjamin catheter, benjamin catheter was properly in place, deflated balloon to check for trauma, trauma noted, blood clot came out of tip of catheter and penis, PA assessed, ordered placement of a new catheter, new 16F Benjamin catheter placed, pt passed another clot and the rest of drainage yellow/clear urine, 1000ml instantly after massaging lower abdomen.JAYMIE Calderon aware
--- NOTE | 2021-05-08 16:27 | ED.GENADULT ---
HPI - General Adult General Chief complaint: Urogenital-Male <Irlanda Calderon PA-C - Last Filed: 05/08/21 17:21> Stated complaint: UTI <Irlanda Calderon PA-C - Last Filed: 05/08/21 17:21> Time Seen by Provider: 05/08/21 15:22 <Irlanda Calderon PA-C - Last Filed: 05/08/21 17:21> Source: patient and family () <DAYSI Christian Last Filed: 05/08/21 17:21> Mode of arrival: ambulatory <DAYSI Christian Last Filed: 05/08/21 17:21> Limitations: no limitations <DAYSI Christian Last Filed: 05/08/21 17:21> History of Present Illness HPI narrative: Patient was with chief complaint of blockage in his Dupree catheter that his noticed since around noon today. She reports that she drains his Dupree catheter but noticed the last time she drained it was at 10 AM. She states that he has plans to drink a large so this is abnormal that he does not have urine in his bag at this time. Patient has not had any fever, chills, nausea, vomiting or abdominal pain. Patient is taking Augmentin for urinary tract infection. Patient denies any pain or discomfort. Her urologist is Dr Roche. <Irlanda Calderon PA-C - Last Filed: 05/08/21 17:21> Related Data Home medications: Home Medications Medication Instructions Recorded Confirmed Valentenettie SuziYovany U-300 Insulin 20 unit SUBCUT HS 08/18/20 04/11/21 insulin lispro [Humalog KwikPen 4 sliding scale dose SUBCUT TID 04/11/21 04/11/21 Insulin] <DAYSI Christian Last Filed: 05/08/21 17:21> Allergies/adverse reactions: Allergies Allergy/AdvReac Type Severity Reaction Status Date / Time No Known Allergies Allergy Verified 05/04/21 13:50 <DAYSI Christian Last Filed: 05/08/21 17:21> Review of Systems Review of Systems: CONSTITUTIONAL: Denies fever, chills, or sweats. EYES: Denies visual changes, redness, or discharge. ENT: Denies rhinorrhea, congestion, sore throat, or otalgia. CARDIOVASCULAR: Denies chest pain, palpitations, or edema. RESPIRATORY: Denies cough or dyspnea. GASTROINTESTINAL: Denies abdominal pain, nausea, vomiting, or diarrhea. GENITOURINARY: Reports urinary retention denies dysuria or hematuria. SKIN: Denies rash or itching. MUSCULOSKELETAL: Denies back pain, joint pain, or myalgia. NEUROLOGIC: Denies headache, numbness, dizziness, or weakness. PSYCHIATRIC: Denies anxiety or depression. <Irlanda Calderon PA-C - Last Filed: 05/08/21 17:21> PMFSH Past Medical History Medical History: Medical History DM2 (diabetes mellitus, type 2) History of CVA (cerebrovascular accident) History of meningitis HTN (hypertension), benign Neurogenic bladder Seizure disorder <Irlanda Calderon PA-C - Last Filed: 05/08/21 17:21> Surgical History Surgical History: Surgical History Surgical history unknown <Irlanda Calderon PA-C - Last Filed: 05/08/21 17:21> Family History Family History: Family History Other Unknown family medical history <Irlanda Calderon PA-C - Last Filed: 05/08/21 17:21> Social History Social History: Social History Social History: The patient is and lives with his . Unknown if patient ever smoke or drink. Patient is unable to answer questions and his is a poor historian Smoking status: Unknown if ever smoked Alcohol intake: never Substance use: never Gender identity (if verbalized by the patient): Male Spiritual care concerns: No <Irlanda Calderon PA-C - Last Filed: 05/08/21 17:21> Exam Narrative: GENERAL: Well-appearing, well-nourished. Elderly. HEAD: Normocephalic, atraumatic. EYES: PERRLA and EOMI. CHEST: Clear to auscultation. No respiratory distress. No wheezes rales or rhonchi HEART: Regular rate and
[2021-05-08 16:31] LABS: Add Urine Microscopic? YES; Amorphous Sediment Urine Few; Appearance Urine Clear (Clear); Bacteria Urine Trace /hpf; Bilirubin Urine Negative (Negative); Blood Urine 3+ (Negative); Color Urine Yellow (Yellow); Glucose Urine UA 1+ mg/dL (Negative); Ketones Urine Negative (Negative); Leukocyte Esterase Ur Trace LEU/UL (Negative); Mucus Urine Rare /lpf; Nitrate Urine Negative (Negative); Protein Urine Negative (Negative); RBC Urine 51-75 /hpf (0-2); Specific Grav Ur 1.009 (1.001-1.035); Urobilinogen Urine Negative mg/dL (<2.0); WBC Urine 51-75 /hpf
[2021-05-08 16:55] VITALS: BP 146/76; PULSE 73; RESP 16; O2SAT 99
--- NOTE | 2021-05-08 17:18 | PC.NURSE ---
PA ordered cefuroxime before pt leaves, received from pharmacy, pt urine slightly red tinged from trauma PA Kvng aware, no acute distress at this time
[2021-05-08] MEDS: CEFUROXIME AXETIL 250 MG TABLET PO (17:20)
== END 2021-05-08 17:35 | disposition home or self-care (01) ==
PROVIDERS: Physician Assistant; Emergency Provider General Practice
DX: T83.098A Other mechanical complication of other urinary catheter, initial encounter (principal); S37.30XA Unspecified injury of urethra, initial encounter; E11.9 Type 2 diabetes mellitus without complications; Z86.73 Personal history of transient ischemic attack (TIA), and cerebral infarction without residual deficits; I10 Essential (primary) hypertension; N31.9 Neuromuscular dysfunction of bladder, unspecified; G40.909 Epilepsy, unspecified, not intractable, without status epilepticus; Z79.4 Long term (current) use of insulin; R82.998 Other abnormal findings in urine
CPT/HCPCS: 81001; 87086; 99283; A9270